=== PATIENT | female | born 1965 | race Caucasian/White ===

== ENCOUNTER → 2017-03-02 | Outpatient (CLI) | payer BC ==
[~2017-03-02] MED LIST: ASP81TEC PO; ASPI325T32 PO; ATEN25TA PO; ATOR80TA PO; CLOP75TA PO; ESCI20TA2 PO; HCT25T PO; LISI10TA2 PO; MULT-608 PO; NIA500ERT PO; OMG1KC PO; PNT40TEC PO; SIMV80TA3 PO
--- NOTE | 2017-03-03 10:23 | Diagnostic Imaging Report ---
EXAMINATION: Bilateral screening mammogram 2D views with tomosynthesis. The current study was also evaluated with a Computer Aided Detection (CAD) system. INDICATION: Screening. PERSONAL HISTORY: No current complaints stated on the questionnaire. COMPARISON: 12/14/2015. FINDINGS: The breasts are composed of heterogeneously dense parenchyma which may decrease mammographic sensitivity. There is a 7 mm asymmetry seen along the upper aspect of the right MLO view. The CC projection demonstrates no definite correlate. The tomographic evaluation demonstrates persistence of the asymmetry without definite underlying lesion. The left breast demonstrates no definite change. IMPRESSION: Focal compression views and ultrasound evaluation for right MLO view asymmetry would be recommended. ACR BI-RADS Category 0: Incomplete. (Needs additional imaging evaluation). Result letter will be mailed to the patient. Note: At least 10% of breast cancer is not imaged by mammography. Dictated by: Dictated on workstation # [id number]
== END ==
LOC: RAD 15:09
PROVIDERS: ATTEND Obstetrics & Gynecology
DX: Z12.31 Encounter for screening mammogram for malignant neoplasm of breast (principal)
CPT/HCPCS: 77067

== ENCOUNTER → 2017-03-18 | Outpatient (CLI) | payer BC ==
--- NOTE | 2017-03-18 10:50 | Diagnostic Imaging Report ---
EXAMINATION: Right breast ultrasound. INDICATION: Asymmetry along the right MLO view. FINDINGS: The four-quadrants and retroareolar region of the right breast were scanned with no underlying abnormality seen. IMPRESSION: Negative study. The additional mammographic views are suggestive of summation artifact of parenchyma. Annual screening mammograms are recommended. ACR BI-RADS Category 1: Negative. Dictated by: Dictated on workstation # [id number]
--- NOTE | 2017-03-18 11:11 | Diagnostic Imaging Report ---
EXAMINATION: Right breast diagnostic mammogram with tomography. The current study was also evaluated with a Computer Aided Detection (CAD) system. INDICATION: Abnormal mammogram. COMPARISON: 03/02/2017. FINDINGS: A focal compression view of the mid right MLO view asymmetry was performed with no definite underlying mass appreciated. The true lateral view demonstrates dense background parenchyma. IMPRESSION: The findings are in favor of summation artifact of parenchyma with no definite underlying lesion seen. An ultrasound evaluation is pending. ACR BI-RADS Category 0: Incomplete. (Needs additional imaging evaluation). Result letter will be mailed to the patient. Note: At least 10% of breast cancer is not imaged by mammography. Dictated by: Dictated on workstation # [id number]
== END ==
LOC: RAD 08:04
PROVIDERS: ATTEND Obstetrics & Gynecology
DX: R92.8 Other abnormal and inconclusive findings on diagnostic imaging of breast (principal)
CPT/HCPCS: 76641

== ENCOUNTER → 2017-04-15 | Outpatient (CLI) | payer BC ==
[~2017-04-15] MED LIST changes: +CATHETER FLUSH 10 ML SYR IV PRN
[2017-04-15 12:48] VITALS: BP 140/81
--- NOTE | 2017-04-16 08:48 | STRESS TEST ---
DATE OF SERVICE: 04/15/2017 EXERCISE MYOVIEW STRESS TEST: Baseline heart rate is 84, baseline blood pressure 140/80, baseline EKG is sinus rhythm with no ischemic changes. In summary, the patient was injected with 10.31 mCi of technetium-99 Myoview and the resting images were obtained. Then, the patient started exercising with a baseline heart rate, blood pressure and EKG mentioned above. The patient was able to exercise for a total of 7 minutes on standard Himanshu protocol. At minute 6 she was injected with 29.2 mCi of technetium-99 Myoview. With peak exercise level EKG was showing less than [address] depression in II, III, aVF, V4 and V5. During recovery, heart rate and blood pressure returned to baseline. EKG returned to baseline. The resting and stress images were reviewed and compared in the short axis, horizontal long axis, and vertical long axis views. Review of the images showed breast attenuation affecting the quality of the images. There is mild decreased uptake at the base of the anterior wall and anterior septum. No significant ischemia was noted. SSS is 53 SDS 1, TID value 0.94. On the gaited images, the left ventricle appeared to be small in size with normal contractility. Calculated ejection fraction 63%. CONCLUSION: 1. Good exercise tolerance a total of 7 minutes on standard Himanshu protocol, total of 8.5 METS achieving 92% of maximum expected heart rate. 2. Appropriate heart rate and blood pressure response to exercise returned to baseline during recovery. 3. Minimal and diagnostic EKG changes with exercise returned to baseline during recovery. 4. Extracardiac attenuation affecting the quality of the images. Overall, there is no significant ischemia or infarction on SPECT images. 5. Normal left ventricular size with normal contractility. Calculated ejection fraction 63%. Job ID: [id number] DocumentID: [id number] Dictated Date: 04/16/2017 08:06:41 Secretary Book Keeper Date: 04/16/2017 08:42:27 Dictated By: LUL OROZCO MD
== END ==
LOC: CARD 09:36
PROVIDERS: ATTEND Physician Assistant
DX: Q23.1 Congenital insufficiency of aortic valve (principal); I25.10 Atherosclerotic heart disease of native coronary artery without angina pectoris; I10 Essential (primary) hypertension; E78.2 Mixed hyperlipidemia
CPT/HCPCS: 78452; 93017; 93306

== ENCOUNTER → 2018-05-14 | Outpatient (CLI) | payer BC ==
[~2018-05-14] MED LIST changes: -CATHETER FLUSH 10 ML SYR IV PRN
--- NOTE | 2018-05-17 08:59 | Diagnostic Imaging Report ---
INDICATION: Routine screening. Comparison is made with prior mammogram from 03/02/2017 and 12/14/2015. 2-D and 3-D bilateral screening mammography was performed with CAD. The current study was also evaluated with a Computer Aided Detection (CAD) system. FINDINGS: Both breasts remain heterogeneously dense, limiting the sensitivity of mammography. Previously noted parenchymal asymmetry in the right breast is not appreciated on today's study. Right breast is unremarkable. There are some calcifications in the upper aspect of the left breast, medially which are similar to perhaps slightly increased when compared with prior exam. Additional views would be useful for further evaluation. Benign calcifications are present as well. The axillae are unremarkable. IMPRESSION: Left breast calcifications perhaps slightly increased when compared with prior mammograms. Further evaluation with additional views are recommended. ACR BI-RADS Category 0: Incomplete. (Needs additional imaging evaluation). Result letter will be mailed to the patient. Note: At least 10% of breast cancer is not imaged by mammography. Dictated by: Dictated on workstation # [id number]
== END ==
LOC: RAD 15:42
PROVIDERS: ATTEND Obstetrics & Gynecology
DX: Z12.31 Encounter for screening mammogram for malignant neoplasm of breast (principal)
CPT/HCPCS: 77067

== ENCOUNTER → 2018-05-21 | Outpatient (CLI) | payer BC ==
--- NOTE | 2018-05-21 18:09 | Diagnostic Imaging Report ---
INDICATION: Left breast calcifications. Patient returns for additional views. COMPARISON: Correlation is made with recent screening study from 05/14/2018. EXAMINATION: Unilateral left 2D and 3D diagnostic mammography was performed including a conventional 90 degree lateral view as well as magnification CC and ML views were obtained. FINDINGS: There is a cluster of microcalcifications in the upper inner left breast at posterior depth. The calcifications appear to be primarily rounded with no pleomorphism. These are tightly clustered however. No associated soft tissue mass is seen. IMPRESSION: Clustered indeterminate microcalcifications in the upper inner left breast posterior depth. Stereotactic biopsy is recommended. ACR BI-RADS Category 4: Suspicious abnormality. Result letter will be mailed to the patient. Note: At least 10% of breast cancer is not imaged by mammography. Dictated by: Dictated on workstation # [id number]
== END ==
LOC: RAD 14:16
PROVIDERS: ATTEND Obstetrics & Gynecology
DX: R92.0 Mammographic microcalcification found on diagnostic imaging of breast (principal)

== ENCOUNTER → 2018-05-28 | Outpatient (CLI) | payer BC ==
[~2018-05-28] VITALS: Ht 165.1 cm; Wt 70.3 kg
[~2018-05-28] MED LIST changes: +LIDOCAINE 1% INJ 20 ML 20 ML VIAL INJ ONE
--- NOTE | 2018-05-28 17:04 | Diagnostic Imaging Report ---
INDICATION: Left breast microcalcifications. Patient presents for stereotactic biopsy. PROCEDURE: Patient was brought to the stereotactic suite and placed in a chair in sitting upright position. The left breast was positioned craniocaudal. Stereotactic targeting of the microcalcifications in the upper inner left breast at posterior depth was performed. The left breast was then prepped and draped in the usual sterile fashion. Small amount of 1% lidocaine was utilized for local anesthesia. An 8-gauge needle was advanced through the superior medial aspect of the left breast and placed with its tip per stereotactic coordinates. A total of four core biopsies were obtained. Suction-aided device was utilized. Imaging of the specimens does demonstrate numerous microcalcifications within the specimen labeled # 1 and # 2. No significant calcifications are identified within sample # 3 or # 4. A marker clip was then deployed. Needle was removed and hemostasis was obtained using manual compression. 2D mammography was then performed demonstrating postbiopsy changes in the upper inner left breast. Previously noted calcifications appear to be predominantly removed. IMPRESSION: Successful stereotactic biopsy of the left breast microcalcifications, as described. Pathology results are currently pending. Dictated by: Dictated on workstation # [id number]
== END ==
LOC: RAD 10:18
PROVIDERS: ATTEND Obstetrics & Gynecology
DX: N60.92 Unspecified benign mammary dysplasia of left breast (principal); R92.0 Mammographic microcalcification found on diagnostic imaging of breast
CPT/HCPCS: 19081; 88305

== ENCOUNTER → 2018-06-14 | Outpatient (CLI) | payer BC ==
[~2018-06-14] MED LIST changes: -LIDOCAINE 1% INJ 20 ML 20 ML VIAL INJ ONE
--- NOTE | 2018-06-14 13:05 | Diagnostic Imaging Report ---
Indication: Status post recent stereotactic biopsy of a cluster microcalcifications in the upper and inner aspect of the left breast. Biopsy results consistent with benign breast tissue with mild intraductal hyperplasia. Studies performed to evaluate for residual calcifications. Correlation is made with prior mammogram from 05/28/2018, 05/21/2018, and 05/14/2018. Unilateral left 2-D and 3-D diagnostic mammography was performed including conventional CC, MLO and ML views as well as magnification CC and ML views. Biopsy changes in the upper inner left breast posterior depth is noted. There is a small circumscribed density surrounding a marker clip consistent with some residual hematoma. The magnification ML view does show some 2-3 punctate residual calcifications just posterior and slightly inferior to the clip. These are not well seen on the CC magnification view. Remainder of left breast does show some scattered benign calcifications. Impression: BI-RADS 2 Status post stereotactic biopsy in the upper inner left breast with residual hematoma present. There are 2-3 residual calcifications identified adjacent to the marker clip, as described. ACR BI-RADS Category 2: Benign findings. Result letter will be mailed to the patient. Note: At least 10% of breast cancer is not imaged by mammography. Dictated by: Dictated on workstation # [id number]
== END ==
LOC: RAD 12:05
PROVIDERS: ATTEND Surgery
DX: L76.32 Postprocedural hematoma of skin and subcutaneous tissue following other procedure (principal); N60.92 Unspecified benign mammary dysplasia of left breast; Z98.890 Other specified postprocedural states

== ENCOUNTER 2018-06-16 05:40 | Outpatient (CLI) | payer BC ==
[~2018-06-16] VITALS: Ht 165.1 cm; Wt 72.6 kg
[2018-06-16] MEDS ORDERED: ATOR20TA66 PO (14:30)
[2018-06-16] MEDS ORDERED: ESTR1TAB24 PO (14:30)
[2018-06-16] MEDS ORDERED: ASPI-999 PO (14:30)
[2018-06-16] MEDS ORDERED: FLUO20CA42 PO (14:30)
[2018-06-16] MEDS ORDERED: HYDR25TA4 PO (14:30)
[2018-06-16] MEDS ORDERED: ATEN25TA PO (14:30)
[2018-06-16] MEDS ORDERED: OMG1KC PO (14:30)
[2018-06-17] MEDS ORDERED: HYDR-34 PO (10:28)
== END 2018-06-16 14:35 | disposition home or self-care (01) ==
LOC: PREOP 05:40
PROVIDERS: ATTEND Surgery
DX: Z01.818 Encounter for other preprocedural examination (principal)

== ENCOUNTER 2018-06-17 09:55 | Day surgery (SDC) | payer BC ==
[~2018-06-17] VITALS: Ht 165.1 cm; Wt 72.1 kg
[~2018-06-17 09:55] MED LIST changes: +ASPI-999 PO; +ATOR20TA66 PO; +ESTR1TAB24 PO; +FLUO20CA42 PO; +HYDR25TA4 PO
[2018-06-17] MEDS ORDERED: LIDOCAINE 1% INJ 20 ML 20 ML VIAL INJ ONE (10:00)
[2018-06-17] MEDS ORDERED: ceFAZolin 2 GM IV Premixed 50 ML IV ONE (10:15)
--- NOTE | 2018-06-17 10:27 | Progress Note-Pre Operative ---
Pre-Operative Progress Note H&P Reviewed The H&P was reviewed, patient examined and no changes noted. Date Seen by Provider: Jun 17, 2018 Time Seen by Provider: 10:25 Date H&P Reviewed: Jun 17, 2018 Time H&P Reviewed: 10:25 Pre-Operative Diagnosis: left breast mass CAPRICE MENDOZA MD Jun 17, 2018 10:27
[2018-06-17] MEDS ORDERED: HYDR-34 PO (10:28)
[2018-06-17 10:30] VITALS: BP 138/90
[2018-06-17] MEDS ORDERED: ONDANSETRON 4 MG/2 ML (SDV) Z0FRAN IVP PRN (10:30)
[2018-06-17] MEDS ORDERED: CATHETER FLUSH 10 ML SYR IV PRN (10:30)
[2018-06-17] MEDS ORDERED: morphine INJ 10 MG/ML 1ML (SYR OR VIAL) IVP PRN (10:30)
[2018-06-17] MEDS ORDERED: oxyCODONE/APAP 5/325MG (PERCOCET 5) TABLET PO PRN (10:30)
[2018-06-17] MEDS ORDERED: ACETAMINOPHEN 325 MG TABLET PO PRN (10:30)
--- NOTE | 2018-06-17 10:30 | Discharge Inst-Surgical ---
D/C Lap Instructions-REJI New, Converted, or Re-Newed RX: RX on Chart Follow Up Appt in 2 weeks Activity as tolerated No driving for 24 hours No driving while on pain medications Incentive Spirometry use every 2 hours while awake Regular Diet Symptoms to Report: Fever over 101 degree F, Nausea/Vomiting Infection Signs and Symptoms to report: Increased redness, Foul odor of wound, Increased drainage Bathing instructions: May shower Operative Area Clean/Dry; Keep incision clean/dry If any problems/questions: Contact your physician or go to Emergency Room CAPRICE MENDOZA MD Jun 17, 2018 10:30
[2018-06-17] MEDS ORDERED: LACTATED RINGERS 1,000 ML IV PRN (12:01)
[2018-06-17] MEDS ORDERED: BUP/EPI 0.5% 1:200,000 (SENSORCAINE) 30 ML VIAL ONE (13:57)
[2018-06-17] MEDS ORDERED: proPOfol 200 MG/20 ML (DIPRIVAN) VIAL IV ONE (14:12)
[2018-06-17] MEDS ORDERED: ONDANSETRON 4 MG/2 ML (SDV) Z0FRAN ONE (14:12)
[2018-06-17] MEDS ORDERED: MIDAZOLAM 2 MG/2 ML (VERSED) VIAL ONE (14:12)
[2018-06-17] MEDS ORDERED: SEVOFLURANE (ULTANE) 15 ML INHAL SOLN ONE ×4 (14:12→15:47)
[2018-06-17] MEDS ORDERED: DEXAMETHASONE 10 MG/ML (DECADRON) 1 ML VIAL ONE (14:12)
[2018-06-17] MEDS ORDERED: LIDOCAINE PF 0.5% 50 ML (XYLOCAINE) VIAL ONE (14:12)
[2018-06-17] MEDS ORDERED: ceFAZolin 2 GM IV Premixed 50 ML ONE (14:25)
[2018-06-17] MEDS ORDERED: fentaNYL INJECTION 100 MCG/2 ML AMP ONE (14:34)
[2018-06-17] MEDS ORDERED: PHENYLEPHRINE 100 MCG/ML 10 ML (ANESTHESIA) SYR ONE (15:14)
[2018-06-17] MEDS ORDERED: MEPERIDINE (DEMEROL) INJ 50 MG/ML ONE (16:15)
[2018-06-17 17:20] VITALS: BP 122/77
[2018-06-17 17:50] VITALS: BP 137/78
[2018-06-17 18:20] VITALS: BP 135/84
[2018-06-17 18:55] VITALS: BP 135/84
--- NOTE | 2018-06-17 20:07 | Diagnostic Imaging Report ---
INDICATION: Status post left breast lumpectomy. EXAMINATION: Specimen radiograph was submitted. FINDINGS: Within the specimen there is the hook wire as well as the marker clip. There are several calcifications in the specimen as well. There are some calcifications noted at coordinate F10. There is a tiny calcification identified at coordinate C9. There may be some tiny calcifications also noted at approximately coordinate D10 and D10.5. IMPRESSION: Specimen radiograph, as described. Dictated by: Dictated on workstation # [id number]
--- NOTE | 2018-06-17 21:34 | OPERATIVE REPORT ---
DATE OF SERVICE: 06/17/2018 ATTENDING PRIMARY CARE PHYSICIAN: Jayda Brown MD PREOPERATIVE DIAGNOSIS: Cluster of microcalcifications, left breast. POSTOPERATIVE DIAGNOSIS: Cluster of microcalcifications, left breast. PROCEDURE: Needle localization left breast biopsy. SURGEON: Caprice Mendoza MD HUMAN PROJECTILE: Spencer Haskins APRN. ANESTHESIA: General laryngeal mask airway with local. ESTIMATED BLOOD LOSS: Minimal. FINDINGS: The breast tissue around the localized region appeared to be fibrocystic. No palpable masses. DISPOSITION: The patient tolerated the procedure well. INDICATIONS: The patient is a 53-year-old female, who was found to have a left breast lesion, which was defined as an area of microcalcification. This was her first abnormality detected on mammography and she has been getting mammogram since age 41. Two sterotactic biopsies were performed, one of which was benign and one showed intraductal hyperplasia without atypia. There was no DCIS or invasive cancer component identified. She began menstruation at around age 14 and menopause at age 52. She did take oral contraceptive pills for approximately 14 years. She has never had a breast biopsy before this one. She does not report any abnormal nipple discharge, asymmetry of breast implant. She also does not report any lymphadenopathy as well as no family history of breast cancer. Due to the findings of the microcalcifications and peace of mind, she did want to have the entire lesion removed by needle localization. DESCRIPTION OF PROCEDURE: The patient was brought to the operating room, laid supine on the table. After adequate IV pain and sedative medications and general laryngeal mask airway intubation, the chest was prepped and draped in standard surgical fashion. A 0.5% Marcaine with epinephrine was used to anesthetize the overlying skin in a crescent shape just inferior to the needle insertion site along the superior aspect of the left breast. Using the needle localization mammographic images, we proceeded with excision of the breast tissue around the hook wire using electrocautery, also while using Ben clamps coring out the entire region around the needle. Good hemostasis was observed. The specimen was sent for permanent pathology. The wound was then copiously irrigated and suctioned out. The breast tissue was then loosely approximated using interrupted 3-0 Vicryl sutures. Subcutaneous tissue was then reapproximated using 3-0 Vicryl interrupted sutures. Skin was closed using 4-0 Monocryl running subcuticular suture. Wound was then cleaned and covered with Dermabond. The patient tolerated the procedure well. We will await the final pathology results. She may resume all previous activities; however, refrain from heavy lifting and exertion for the next two weeks and to apply tighter garments especially around the area of the excision site of the breast to prevent seroma formation. Job ID: [id number] DocumentID: [id number] Dictated Date: 06/17/2018 16:03:09 Film Developer Date: 06/17/2018 21:33:50 Dictated By: CAPRICE MENDOZA MD
== END 2018-06-17 18:55 | disposition home or self-care (01) ==
LOC: SDC 09:55
PROVIDERS: ATTEND Surgery
DX: N60.32 Fibrosclerosis of left breast (principal); N60.92 Unspecified benign mammary dysplasia of left breast; N64.1 Fat necrosis of breast; I25.10 Atherosclerotic heart disease of native coronary artery without angina pectoris; I10 Essential (primary) hypertension; E78.00 Pure hypercholesterolemia, unspecified; K21.9 Gastro-esophageal reflux disease without esophagitis; I25.2 Old myocardial infarction; Z87.891 Personal history of nicotine dependence; Z79.82 Long term (current) use of aspirin; Z79.899 Other long term (current) drug therapy; Z95.5 Presence of coronary angioplasty implant and graft
CPT/HCPCS: 76098; 87081; 88305

== ENCOUNTER → 2018-12-08 | Outpatient (CLI) | payer BC ==
[~2018-12-08] VITALS: Ht 165.1 cm; Wt 68.5 kg
[~2018-12-08] MED LIST changes: +CATHETER FLUSH 10 ML SYR IV PRN; +DIPH25TA65 PO; +HYDR-34 PO
[2018-12-08 14:00] VITALS: BP 168/65
--- NOTE | 2018-12-09 00:24 | STRESS TEST ---
DATE OF SERVICE: 12/08/2018 EXERCISE MYOVIEW STRESS TEST REPORT REFERRING PHYSICIAN: Dr. Brown. Baseline heart rate is 62. Baseline blood pressure is 148/85. Baseline EKG is sinus rhythm with no ischemic changes. In summary, the patient was injected with 10.3 mCi of technetium-99 Myoview and the resting images were obtained. Then, the patient started exercising with a baseline heart rate, blood pressure and EKG mentioned above. She was able to exercise for 8 minutes 40 seconds on standard Himanshu protocol. With peak exercise level, EKG was showing [address] depression in II, III, aVF, V4, V5 and V6 subtle ST elevation in aVL. Blood pressure at peak exercise level was 168/85. During recovery, the patient continued to have horizontal ST depression in II, III, aVF that resolved late in recovery. The resting and stress images were reviewed and compared in the short axis, horizontal long axis, and vertical long axis views. Review of the images showed breast attenuation with reversible ischemia involving the mid to apical anterior wall and anterolateral wall. SSS is 7, SDS 6, TID value 1.01. On the gated images, the left ventricle appeared to be normal size with normal contractility. Calculated ejection fraction 54%. IN CONCLUSION: 1. Excellent exercise tolerance, a total of 8 minutes 40 seconds on standard Himanshu protocol, total of 10.3 METS achieving 85% of maximum expected heart rate. 2. EKG changes with exercise that is suspicious of ischemia. 3. Breast attenuation with reversible ischemia involving the mid to apical anterior wall and anterolateral wall. 4. Normal left ventricular size with normal contractility. Calculated ejection fraction 54%. Job ID: [id number] DocumentID: [id number] Dictated Date: 12/08/2018 19:52:46 Egg Packer Date: 12/09/2018 00:24:00 Dictated By: LUL OROZCO MD
== END ==
LOC: CARD 08:37
PROVIDERS: ATTEND Physician Assistant
DX: I34.0 Nonrheumatic mitral (valve) insufficiency (principal); I10 Essential (primary) hypertension; I25.10 Atherosclerotic heart disease of native coronary artery without angina pectoris; E78.2 Mixed hyperlipidemia; Q23.1 Congenital insufficiency of aortic valve
CPT/HCPCS: 78452; 93017; 93306

== ENCOUNTER 2018-12-10 06:47 | Day surgery (SDC) | payer BC ==
[2018-12-10] VITALS (10 sets, daily range): BP systolic 106–140; BP diastolic 70–79
[~2018-12-10] VITALS: Ht 165.1 cm; Wt 68.5 kg
[~2018-12-10 06:47] MED LIST changes: -CATHETER FLUSH 10 ML SYR IV PRN; -DIPH25TA65 PO
[2018-12-10] MEDS ORDERED: HEParin (CATH LAB) 2,000 ML IV ONE (06:50)
[2018-12-10] MEDS ORDERED: NS IV 1000 ML 1,000 ML ONE (06:50)
[2018-12-10] MEDS ORDERED: LIDOCAINE 1% INJ 20 ML 20 ML VIAL ONE (06:50)
[2018-12-10] MEDS ORDERED: NS IV 1000 ML 1,000 ML IV SCH ×2 (07:00→08:40)
[2018-12-10 07:18] LABS: HEMOGLOBIN 14.1 G/DL (11.5-16.0); MEAN PLATELET VOLUME 10.2 FL (7.4-10.4); RED CELL DISTRIBUTION WIDTH 13.1 % (10.0-14.5); WHITE BLOOD COUNT 7.8 10^3/uL (4.3-11.0)
[2018-12-10 07:26] LABS: BILIRUBIN,URINE NEGATIVE (NEGATIVE); CLARITY,URINE CLEAR; COLOR,URINE YELLOW; GLUCOSE, URINE (UA) NEGATIVE (NEGATIVE); KETONES,URINE NEGATIVE (NEGATIVE); LEUKOCYTE ESTERASE ,URINE 3+ (NEGATIVE); NITRITE,URINE NEGATIVE (NEGATIVE); PH,URINE 8 (5-9); PROTEIN,URINE 2+ (NEGATIVE); UROBILINOGEN,URINE 1 MG/DL (NORMAL)
[2018-12-10] MEDS ORDERED: DIPH25TA65 PO (07:26)
[2018-12-10 07:27] LABS: WBC,URINE 0-2 /HPF
[2018-12-10 07:28] LABS: BACTERIA,URINE NEGATIVE /HPF
[2018-12-10 07:29] LABS: INR 0.9 (0.8-1.4); PROTHROMBIN TIME PATIENT 12.7 SEC (12.2-14.7)
[2018-12-10 07:35] LABS: ALANINE AMINOTRANSFERASE 29 U/L (0-55); ALBUMIN 4.2 GM/DL (3.2-4.5); ALKALINE PHOSPHATASE 92 U/L (40-136); BILIRUBIN,TOTAL 0.4 MG/DL (0.1-1.0); BUN/CREATININE RATIO 14; CALCIUM 9.9 MG/DL (8.5-10.1); CARBON DIOXIDE 31 MMOL/L (21-32); CHLORIDE 104 MMOL/L (98-107); CHOLESTEROL 177 MG/DL (< 200); CREATININE SERUM 0.88 MG/DL (0.60-1.30); GFR ESTIMATED > 60; GLUCOSE 82 MG/DL (70-105); HDL CHOLESTEROL 67 MG/DL (40-60); POTASSIUM 3.6 MMOL/L (3.6-5.0); SODIUM 144 MMOL/L (135-145); TOTAL PROTEIN 6.6 GM/DL (6.4-8.2); TRIGLYCERIDES 71 MG/DL (<150); VLDL CHOLESTEROL 14 MG/DL (5-40)
--- NOTE | 2018-12-10 07:38 | Diagnostic Imaging Report ---
Patient History: abn stress,htn,cad,hlp. Technique: Single frontal view of the chest Comparison: 04/09/2011 FINDINGS: The lung volumes are normal. No focal consolidation is seen. No large pleural effusion or pneumothorax is seen. The cardiomediastinal silhouette is normal in size and contour. No acute osseous abnormality is seen. IMPRESSION: No acute pulmonary abnormality seen. Dictated by: Dictated on workstation # [id number]
[2018-12-10] MEDS ORDERED: MIDAZOLAM 5 MG/5 ML (VERSED) VIAL ONE (07:42)
[2018-12-10] MEDS ORDERED: fentaNYL INJECTION 100 MCG/2 ML AMP ONE (07:42)
--- NOTE | 2018-12-10 08:15 | Cardiac Procedure Note-CS/ASA ---
Pre-Procedure Note Pre-Op Procedure Note H&P Reviewed The H&P was reviewed, patient examined and no changes noted. Date H&P Reviewed: Dec 10, 2018 Time H&P Reviewed: 08:14 Conscious Sedation Pre-Proced Time 08:14 ASA Score 3 For ASA 3 and 4: Consider anesthesia and medical clearance. Also, for patients with a history of failed moderate sedation consider anesthesia. Airway Lungs Heart ASA score ASA 1: a normal healthy patient ASA 2: a patient with a mild systemic disease (mid diabetes, controlled hypertension, obesity ASA 3: a patient with a severe systemic disease that limits activity (angina, COPD, prior Myocardial infarction) ASA 4: a patient with an incapacitating disease that is a constant threat to life (CHF, renal failure) ASA 5: a moribund patient not expected to survive 24 hrs. (ruptured aneurysm) ASA 6: a declared brain- patient whose organs are being harvested. For emergent operations, add the letter E after the classification Mallampati Classification Grade 3 Sedation Plan Analgesia, Amnesia, Plan communicated to team members, Discussed options with patient/fam, Discussed risks with patient/fam The patient is an appropriate candidate to undergo the planned procedure, sedation, and anesthesia. The patient immediately re-assessed prior to indication. LUL OROZCO MD Dec 10, 2018 08:15
--- NOTE | 2018-12-10 08:43 | Discharge Inst-Post CATH ---
Discharge Inst-CATH/EP Problems Reviewed?: Yes Post Cardiac Cath/EP D/C Inst Follow Up/Plan Appointment with Dr Lorenzo's office in 2-4 weeks <b>CARDIAC CATH/EP PROCEDURE DISCHARGE INSTRUCTIONS</b> ACTIVITY * Go Home directly and rest. * Limit activity of the leg (or wrist if it was used) for 7 days including aerobics, swimming, jogging, bicycling, etc. * Restrict stair-climbing for 7 days if possible, if not, climb up with your non-cath leg, then bring together on the same step. * Avoid lifting, pushing, pulling or excessive movement of the affected extremity for 7 days. * Customary sexual activity may be resumed after 2 days-use caution not to use a position that strains or causes pain to the affected extremity. * No driving for 24 hours. * NO SMOKING. * Avoid straining for bowel movements for 7 days. * Gentle walking on level ground is allowed. * Returning to work will depend on the type of procedure and the results. Your doctor will discuss this with you. CALL YOUR DOCTOR FOR ANY OF THE FOLLOWING: *If bleeding from the puncture site occurs- Apply gentle pressure to site with clean cloth and call your doctor or EMS. * If a knot or lump forms under the skin, increases in size, or causes pain. * If bruising appears to be worsening or moving further down your leg instead of disappearing. * Temperature above 101 F. CARE OF YOUR GROIN INCISION; * Bruising or purple discoloration of the skin near the puncture site is common. * You may shower only, no bathtub bathing for 5 days. Be careful to avoid slipping as your leg may feel stiff. * If a closure device was used on your femoral artery, please see the attached guide regarding care of the device and your leg. * Leave dressing on FOR 24 hours. CARE OF YOUR WRIST INCISION; * Bruising or purple discoloration of the skin near the puncture site is common. * You may shower. * DO NOT submerge wrist. * Leave dressing on FOR 24 hours. LUL LORENZO MD Dec 10, 2018 08:43
[2018-12-10] MEDS ORDERED: PATIENT MAY USE OWN MEDS, ALL PO SCH (08:45)
--- NOTE | 2018-12-10 08:46 | Cardiac Cath Report ---
Cardiac Cath Report Physician (s)/Business Investor (s) Physician LUL OROZCO MD Pre-Procedure Diagnosis Pre-Procedure Diagnosis: CAD Post-Procedure Note Procedure Start Date: Dec 10, 2018 Name of Procedure: left heart catheterization Findings/Procedure Note PROCEDURE NOTE: 53 years old lady with history of coronary artery disease multiple interventions in the past, multiple stenting, had an abnormal stress test scheduled for cardiac catheterization. After explaining the procedure to the patient, all pros and cons were explained, all questions were answered. The patient signed the consent and then she was placed on the cardiac catheterization laboratory. Groin was prepped SL fashion local anesthesia was used. Sheath placed in the right femoral artery. Renetta right and left catheter were used to access the coronary system. Pigtail was used to access the left ventricular cavity. Left ventriculogram was not done, pressure was measured At the end of the procedure the sheath was removed. Closure device was used FINDINGS: Hemodynamics LV 136/26, end-diastolic pressure of 26 Aorta 140/77 mean of 103 ANATOMY: Left Main is free of obstructive disease Left Anterior Descending is small to moderate in size with mild disease nonobstructive disease Left Circumflex has a patent stent at the midportion, mild to moderate disease beyond the stent nonobstructive disease Right Coronory Artery is small to moderate in size with mild disease nonobstructive disease LV Gram was not done, pressure was measured CONCLUSION: 1. Patent stents with mild to moderate disease nonobstructive disease in the coronary system 2. Elevated left ventricular end-diastolic pressure DISCUSSION AND RECOMMENDATION: continue with medical therapy no intervention is needed Anesthesia Type: Conscious Sedation Estimated blood loss (mL): 10 ml Contrast Amount: 30 ml Total Radiation Dose: 117 mGy Post-Procedure Diagnosis Post-operative diagnosis: Chest pain Coronary artery disease Hypertension Hyperlipidemia LUL OROZCO MD Dec 10, 2018 08:46
--- OUTSIDE RECORDS SUMMARY | 2018-12-10 09:13 | XMS REPORT | Clinical Summary ---
Author Author [facility] Organization [facility] Address Unknown Phone Unavailable Care Team Providers Care Leasing Specialist Name Role Phone Tiffanie Hernandez MD Unavailable Unavailable Richard Sage MD Unavailable Source Comments Some departments are not documenting in the electronic medical record. If you d o not see the information that you expected, contact Release of Information in [facility] Well Information Management department at [phone] for further assistan ce in locating additional records.[facility] Allergies No Known Allergies Medications End Date Status Medication Sig Dispensed Refills Start Date Active pantoprazole DR Take 40 mg by 0 (PROTONIX) 40 mg tablet mouth daily. Active clopiDOGrel (PLAVIX) 75 Take 75 mg by 0 mg tablet mouth daily. Active escitalopram oxalate Take 20 mg by 0 (LEXAPRO) 20 mg tablet mouth daily. Active niacin CR(+) (NIASPAN) Take 1,500 mg 0 750 mg Tb24 by mouth at bedtime daily. Active atenolol (TENORMIN) 25 mg Take 25 mg by 0 tablet mouth daily. Active atorvastatin (LIPITOR) 40 Take 40 mg by 0 mg tablet mouth daily. Active hydrochlorothiazide Take 25 mg by 0 (HYDRODIURIL) 25 mg mouth daily. tablet Active lisinopril (PRINIVIL; Take 20 mg by 0 ZESTRIL) 20 mg tablet mouth daily. Active aspirin EC 81 mg tablet Take 81 mg by 0 mouth daily. Active DOCOSAHEXANOIC ACID/EPA Take by 0 (FISH OIL PO) mouth. Active MULTIVITAMIN PO Take by 0 mouth. Active DIPHENHYDRAMINE HCL Take by 0 (BENADRYL ALLERGY PO) mouth. Active psyllium (METAMUCIL) Take 1 Packet 60 Packet 2 packet by mouth 4 twice daily. Active senna/docusate Take 1-2 Tabs 60 Tab 2 (SENOKOT-S) 8.6/50 mg by mouth at 4 tablet bedtime as needed (for constipaton. Hold for Diarrhea.). Active hemorrhoidal prep Insert or 12 1 (ANUSOL) 0.25 % rectal Apply 1 Suppository 4 suppository Suppository to rectal area as directed at bedtime daily. Active bisacodyl (DULCOLAX Take 1 Tab by 30 Tab 2 (BISACODYL)) 5 mg tablet mouth twice 4 daily as needed for Constipation. Active Problems Problem Noted Date Constipation 02/01/2014 Anal fissure 12/21/2013 Rectal bleeding 12/21/2013 Hemorrhoids 12/21/2013 Overview: Internal and external Family History Medical History Relation Name Comments Cancer Father Cancer-Colon Father Hypertension Father Melanoma Father Heart Disease Maternal Grandmother Diabetes Mother Hyperlipidemia Mother Hypertension Mother Melanoma Sister Relation Name Status Comments Father Maternal Grandmother Mother Sister Social History Date Tobacco Use Types Packs/Day Years Used Former Smoker Comments: smoked for 10 years quit 2007 Drinks/Week oz/Week Comments Alcohol Use Not Asked Sex Assigned at Date Recorded Not on file Industry Job Start Date Occupation Not on file Not on file Not on file Travel End Travel History Travel Start No recent travel history available. Last Filed Vital Signs Reading Time Taken Comments Vital Sign 122/82 02/01/2014 12:58 PM CDT Blood Pressure 94 02/01/2014 12:58 PM CDT Pulse 36.5 C (97.7 F) 02/01/2014 12:58 PM CDT Temperature 16 02/01/2014 12:58 PM CDT Respiratory Rate - - Oxygen Saturation - - Inhaled Oxygen Concentration 88.9 kg (196 lb) 02/01/2014 12:58 PM CDT Weight 165.1 cm (5' 5") 02/01/2014 12:58 PM CDT Height 32.62 02/01/2014 12:58 PM CDT Body Mass Index Plan of Treatment Health Maintenance Due Date Last Done Comments PHYSICAL (COMPREHENSIVE) 1973 EXAM HIV SCREENING 1981 DTAP/TDAP VACCINES (1 - 1984 Tdap) CERVICAL CANCER SCREENING 1996 BREAST CANCER SCREENING 2006 COLORECTAL CANCER 2016 SCREENING SHINGLES RECOMBINANT 2016 VACCINE (1 of 2) INFLUENZA VACCINE 02/01/2019 Results Not on filefrom Last 3 Months
--- OUTSIDE RECORDS SUMMARY | 2018-12-10 09:14 | XMS REPORT | Encounter Summary ---
Author Author [facility] Organization [facility] Address Unknown Phone Unavailable Care Team Providers Care Pulpwood Contractor Name Role Phone PCP Unavailable Encounter Details Care Team Description Date Type Department Leticia Pino MD [address] [place] [id number] 08/26/2007 [facility] Visit Social History Date Tobacco Use Types Packs/Day Years Used Never Assessed Sex Assigned at Date Recorded Not on file Industry Job Start Date Occupation Not on file Not on file Not on file Travel End Travel History Travel Start No recent travel history available. documented as of this encounter Last Filed Vital Signs Reading Time Taken Comments Vital Sign 114/76 08/26/2007 12:03 PM CDT Blood Pressure 75 08/26/2007 12:03 PM CDT Pulse - - Temperature - - Respiratory Rate - - Oxygen Saturation - - Inhaled Oxygen Concentration 69.4 kg (153 lb) 08/26/2007 12:03 PM CDT overweight Weight 165.1 cm (5' 5") 08/26/2007 12:03 PM CDT Height 25.46 08/26/2007 12:03 PM CDT Body Mass Index documented in this encounter Progress Notes * Leticia Pino MD - 08/26/2007 12:00 PM CDT [facility] [address] [place] [id number] Phone: [phone] Fax: [phone] August 26, 2007 KURT ORTEGA DO [facility] [address] [place] [id number] RE: LAURASHAUN MILENA : 1965 Chart #: [id number] Dear Dr. ORTEGA: I had the pleasure of seeing WYADONAY ABBOTT in the office today. She is 42 years of age and presents with the following chief complaint: Coronary artery diseas e. HPI: She denies angina or the use of sublingual nitroglycerin. She denies dyspnea, o rthopnea, PND, lower extremity edema, palpitations, presyncope, syncope, claudic ation or stroke. She states that she is involved with exercise and attempts to be compliant with a heart-healthy diet. Unfortunately, she continues to smoke. In the interim of her last visit with us, she underwent hysterectomy without ca rdiovascular complications. Problem List: CAD Inferior wall [place] (old) CAD PCI She underwent acute angioplasty and stenting of the RCA. Sh e was noted to have 30-40% plaque in the proximal and mid to left circumflex smita nary artery. 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 LV function was normal with an LVEF of 50%. 08/17/2002 CAD MPI Stress Test No definite ischemia. Normal LV systolic functio n, LVEF 76%. Breast attenuation artifact. Suggest PET or attenuation correctio n SPECT for future perfusion imaging. 08/26/2006 CAD Echo 1) Good exercise tolerance, achieving 10 METS. 2) Normal r esting left ventricular systolic function with an estimated ejection fraction of 60%. 3) Resting wall motion abnormalities consistent with prior RCA territory infarct. No exercise induced ischemia. Mid inferolateral segment and inferior base are akinetic. The mid to lateral inferior segments are hypokinetic. 01/24/2005 Dyslipidemia 08/17/2002 Echo 1. Normal left ventricular systolic function, with an estimate d ejection fraction of 55%. 2. Inferior wall hypokinesis. 3. No valvular ab normalities. 08/17/2002 EF MPI Rest EF: 76 Past Surgical History: Tubal ligation Tubal Pregnancies 2x Tonsillectomy 1970 Vaginal Hysterectomy 2006 Current Medications: Fish Oil 1000mg Take one capsule by mouth daily Zocor 20mg Take one tablet by mouth daily Atenolol 50mg Take one tablet by mouth daily Niaspan 500mg Take one tablet by mouth daily Lisinopril 10mg Take one tablet by mouth daily Aspirin 325mg Take one tablet by mouth daily Lexapro 20mg Take one tablet by mouth daily Multivitamin Take one tablet by mouth daily Allergies: No Known Allergies Family History: Mother Premature CAD at age 54. Father Cause of was melanoma at age 58. Sister Diagnosed with DM, HTN and dyslipidemia. Social History: Marital Status: Children: 2 Occupation: Teacher Diet: Regular Exercise: Occasional. Walking 2-3x weekly 20min Smoking: Current smoker of .50 packs per day for 10.00 years. Alcohol: Does not drink Caffeine: Caffeine use: 64 oz of soda ROS: 12-point review of systems is negative with the following exceptions: Constitutional: Fatigue, Cough Pulmonary: Snore, Daytime drowsiness, Wake up unrefreshed Cardiovascular: Lightheadedness Neuro: Disequilibrium Hematology: Bleed or bruise easily Endocrine/Psych: Feeling depressed Physical Exam: Vital Signs The patient is 5ft 5in tall, and weighs 153lbs. The BMI is 25.50. B lood pressure taken in the left arm is 114/76 mmHg in the sitting position. The pulse is 75. The rhythm is regular. HEENT The patient's neck veins are flat. Thyromegaly is present. Pulm Lungs are clear to auscultation. Cardiac Regular rate and rhythm. Normal S1 and S2. No murmur, rub, or gallop pre sent. Abd The patient has no abdominal tenderness to palpation. There is no hepatomeg mildred. The abdominal aorta is of normal size. There is no abdominal aortic bruit dete cted by auscultation. Vasc Distal pulses 2+ throughout with no carotid bruits noted. EXT The extremities are warm to touch. There is no edema noted. Neuro/Psych The patient is alert and oriented to time, person and place. The pa tient's mood is normal. EKG: Rhythm: Sinus Rate: 75 Most Recent Lipids Available for Review: Date Collected Fasting Chol HDL LDL Trig Ratio Glucose 08/26/2007 No 143 45 72 124 3.18 111 Impression and Plan: In summary, Ms. Abbott is a 42-year-old female with a history of inferior wall myocardial infarction in 2000, which was treated with PTCA and stenting of the right coronary artery. Her stress echocardiogram last year was normal. She is asymptomatic from an anginal standpoint and euvolemic on examination. I again, had a nice conversation with her about the worrisome effects of nicotin e and her risk of future cardiovascular events. Smoking cessation was again adv ised. I have not made any changes in her cardiovascular medications. I did st ress that I would like to see her HDL higher, which would incorporate more exerc ise and again, smoking cessation. She was encouraged to call in the interim of follow-up with any concerns or questions. At the time of follow-up I have sugg ested a stress echocardiogram. Follow up: Leticia Pino M.D. 1 Year Thank you for allowing me to participate in DIEGO ABBOTT's care. If I can be of any further assistance, please do not hesitate to contact me. Sincerely, Leticia STEVENS/jose , 12:57 p.m. , 10:46 a.m. F: 09/01/2007 documented in this encounter Plan of Treatment Not on filedocumented as of this encounter Visit Diagnoses Not on filedocumented in this encounter
--- OUTSIDE RECORDS SUMMARY | 2018-12-10 09:14 | XMS REPORT | Encounter Summary ---
Author Author [facility] Organization [facility] Address Unknown Phone Unavailable Care Team Providers Care Manager Operational Name Role Phone Marvin Adames MD PCP Encounter Details Care Team Description Date Type Department Provider, MD Timothy [address] [place] [address] [id number] 10/17/2014 [facility] Social History Date Tobacco Use Types Packs/Day Years Used Never Assessed Sex Assigned at Date Recorded Not on file Industry Job Start Date Occupation Not on file Not on file Not on file Travel End Travel History Travel Start No recent travel history available. documented as of this encounter Plan of Treatment Not on filedocumented as of this encounter Visit Diagnoses Not on filedocumented in this encounter
--- OUTSIDE RECORDS SUMMARY | 2018-12-10 09:14 | XMS REPORT | Clinical Summary ---
Author Author [facility] Organization [facility] Address Unknown Phone Unavailable Care Team Providers Care Silvering Applicator Name Role Phone Marvin Adames MD PCP Allergies Not on File Medications End Date Status Medication Sig Dispensed Refills Start Date Active lisinopril Take one 90 3 200 (PRINIVIL,ZESTRIL) 10 MG tablet by 9 tablet mouth daily Active niacin (NIASPAN Take one 90 3 EXTENDED-RELEASE) 500 MG tablet by 9 CR tablet mouth daily Active atenolol (TENORMIN) 25 MG take 1 tablet 90 3 200 tablet (25MG) by 9 ORAL route every day Active simvastatin (ZOCOR) 20 MG Take one 90 3 200 tablet tablet by 9 mouth daily Active diphenhydrAMINE-acetamino take 2 tablet 0 200 phen (TYLENOL PM EXTRA by ORAL route 9 STRENGTH) 25-500 mg Tab every day at bedtime Active omega-3 fatty Take one 0 0 03/30/200 acids-vitamin E 1,000 mg capsule by 8 cap mouth daily Active multivitamin (THERAGRAN) Take one 0 0 09/22/200 per tablet tablet by 5 mouth daily Active escitalopram oxalate Take one 0 0 01/23/200 (LEXAPRO) 20 MG tablet tablet by 5 mouth daily Active aspirin 325 MG EC tablet Take one 0 0 09/22/200 tablet by 5 mouth daily Active Problems Problem Noted Date Hemangioma of skin 10/17/2014 Benign neoplasm of skin 10/17/2014 Overview: ICD-10 conversion Family History Medical History Relation Name Comments Other Mother Premature CAD at age 54. Other Sister Diagnosed with DM, HTN, Dyslipidemia Relation Name Status Comments Father Cause of was Melanoma CA at age 58. (Age 58) Mother Sister Social History Date Tobacco Use Types Packs/Day Years Used Never Smoker Sex Assigned at Date Recorded Not on file Industry Job Start Date Occupation Not on file Not on file Not on file Travel End Travel History Travel Start No recent travel history available. Last Filed Vital Signs Reading Time Taken Comments Vital Sign 109/76 10/17/2014 2:22 PM CDT Blood Pressure 74 10/17/2014 2:22 PM CDT Pulse - - Temperature - - Respiratory Rate - - Oxygen Saturation - - Inhaled Oxygen Concentration 68 kg (150 lb) 10/17/2014 2:22 PM CDT Weight 165.1 cm (5' 5") 10/17/2014 2:22 PM CDT Height 24.96 10/17/2014 2:22 PM CDT Body Mass Index Plan of Treatment Health Maintenance Due Date Last Done Comments Td # 1965 Zoster Vaccine# (1 of 2) 2016 Influenza Vaccine (#1) 2019 Results Not on filefrom Last 3 Months Insurance Type Payer Benefit Subscriber ID Effective Phone Address Plan / Dates Group [facility] xxxxxxxxxxxx 2014- CHOICE Present BIPIN LEUNG
--- OUTSIDE RECORDS SUMMARY | 2018-12-10 09:14 | XMS REPORT | Encounter Summary ---
Author Author [facility] Organization [facility] Address Unknown Phone Unavailable Care Team Providers Care Telephone Messenger Name Role Phone PCP Unavailable Encounter Details Care Team Description Date Type Department Milo Driscoll MD [address] [address] [phone] 12/17/2006 [facility] Visit Social History Date [...]
--- OUTSIDE RECORDS SUMMARY | 2018-12-10 09:14 | XMS REPORT | Encounter Summary ---
Author Author [facility] Organization [facility] Address Unknown Phone Unavailable Care Team Providers Care Gas Plant Worker Name Role Phone PCP Unavailable Encounter Details Care Team Description Date Type Department [facility] Provider, MD Timothy 08/26/2006 [facility] Result Social History Date Tobacco Use Types Packs/Day Years Used Never Assessed Sex Assigned at Date Recorded Not on file Industry Job Start Date Occupation Not on file Not on file Not on file Travel End Travel History Travel Start No recent travel history available. documented as of this encounter Plan of Treatment Not on filedocumented as of this encounter Procedures Comments Procedure Name Priority Date/Time Associated Diagnosis ECHO STRESS HISTORICAL Routine 08/26/2006 documented in this encounter Results * Echo Stress historical (08/26/2006) Specimen Narrative Performed At Procedure Category: ECHO [facility]EXT[facility] Procedure: Exercise Echocardiogram Procedure Summary: 1) Good exercise tolerance, achieving 10 METS. 2) Normal resting left ventricular systolic function with an estimated ejection fraction of 60%. 3) Resting wall motion abnormalities consistent with prior RCA territory infarct.No exercise induced ischemia. Mid inferolateral segment and inferior base are akinetic.The mid to lateral inferior segments are hypokinetic. Procedure Note Interface, Rad Conversion - 11/22/2014 8:54 AM CDT Procedure Category: ECHO Procedure: Exercise Echocardiogram Procedure Summary: 1) Good exercise tolerance, achieving 10 METS. 2) Normal resting left ventricular systolic function with an estimated ejection fraction of 60%. 3) Resting wall motion abnormalities consistent with prior RCA territory infarct. No exercise induced ischemia. Mid inferolateral segment and inferior base are akinetic. The mid to lateral inferior segments are hypokinetic. Performing Organization Address City/State/Zipcode Phone Number [facility]GEN documented in this encounter Visit Diagnoses Not on filedocumented in this encounter
--- OUTSIDE RECORDS SUMMARY | 2018-12-10 09:14 | XMS REPORT | Encounter Summary ---
Author Author [facility] Organization [facility] Address Unknown Phone Unavailable Care Team Providers Care Telecommunications Officer Name Role Phone PCP Unavailable Encounter Details Care Team Description Date Type Department [facility] Provider, MD Timothy 11/08/2008 [facility] Result Social History Date [...] Date/Time Associated Diagnosis ECHO STRESS HISTORICAL Routine 11/08/2008 documented in this encounter Results * Echo Stress historical (11/08/2008) Specimen Narrative Performed At Procedure Category: ECHO [facility] Procedure: Exercise Echocardiogram Procedure Summary: 1. Good exercise tolerance, achieving 10 METS. 2. Normal resting left ventricular systolic function with an estimated ejection fraction of 60%. 3. Akinetic inferolateral segments plus the basal septum and inferior base.No exercise induced ischemia. Procedure Note Interface, Rad Conversion - 11/22/2014 5:35 AM CDT Procedure Category: ECHO Procedure: Exercise Echocardiogram Procedure Summary: 1. Good exercise tolerance, achieving 10 METS. 2. Normal resting left ventricular systolic function with an estimated ejection fraction of 60%. 3. Akinetic inferolateral segments plus the basal septum and inferior base. No exercise induced ischemia. Performing Organization Address City/State/Zipcode Phone Number NEXTGEN documented in this encounter Visit Diagnoses Not on filedocumented in this encounter
--- OUTSIDE RECORDS SUMMARY | 2018-12-10 09:14 | XMS REPORT | Encounter Summary ---
Author Author [facility] Organization [facility] Address Unknown Phone Unavailable Care Team Providers Care Digitizer Operator Name Role Phone PCP Unavailable Encounter Details Care Team Description Date Type Department Leticia Pino MD [address] [place] [address] [phone] 08/26/2006 [facility] Visit Social History Date Tobacco Use Types Packs/Day Years Used Never Assessed Sex Assigned at Date Recorded Not on file Industry Job Start Date Occupation Not on file Not on file Not on file Travel End Travel History Travel Start No recent travel history available. documented as of this encounter Last Filed Vital Signs Reading Time Taken Comments Vital Sign 118/82 08/26/2006 2:29 PM CDT Blood Pressure 94 08/26/2006 2:29 PM CDT Pulse - - Temperature - - Respiratory Rate - - Oxygen Saturation - - Inhaled Oxygen Concentration 68.9 kg (152 lb) 08/26/2006 2:29 PM CDT Weight 165.1 cm (5' 5") 08/26/2006 2:29 PM CDT Height 25.29 08/26/2006 2:29 PM CDT Body Mass Index documented in this encounter Progress Notes * Leticia Pino MD - 08/26/2006 2:14 PM CDT [place] [facility] [address] [place] [address] [phone] August 26, 2006 KURT ORTEGA, DO [facility] [address] [place] [id number] RE: DIEGO ABBOTT : 1965 Chart #: [id number] Dear Dr. ORTEGA: I had the pleasure of seeing DIEGO ABBOTT in the office today for an annual ev aluation. She is 41 years of age and presents with the following chief complaint s: Follow-up on chronic disease. HPI: She denies angina or the need for nitroglycerin. She denies dyspnea, orthopnea, PND, lower extremity edema, palpitations, presyncope, syncope, claudication, or stroke. Her chief complaint is that of heavy menses and severe cramping. She states that she had a syncopal episode associated with severe pelvic pain. She states her [facility] physician had suggested Prometrium and inquires whether this may be safe from a cardiovascular standpoint. She also is bothered by increased acn e as well as facial hair. She denies orthopnea, PND, claudication, or stroke. She states there is clear room for improvement in efforts at healthy diet and ex ercise. Unfortunately, she continues to smoke. Problem List: CAD Inferior wall NE (old) CAD PCI She underwent acute angioplasty and stenting of the RCAl. She was noted to have 30-40% plaque in the proximal and mid to left circumflex coronary artery. 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 LV function was normal with an LVEF of 50%. 08/17/2002 CAD MPI Stress Test No definite ischemia. Normal LV systolic function , LVEF 76%. Breast attenuation artifact. Suggest PET or attenuation correction SPECT for future perfusion imaging. 08/26/2006 CAD Echo 1) Good exercise tolerance, achieving 10 METS. 2) Normal resting left ventricular systolic function with an estimated ejection fraction of 60%. 3) Resting wall motion abnormalities consistent with prior RCA territory infarct. No exercise induced ischemia. Mid inferolateral segment and inferior base are akinetic. The mid to lateral inferior segments are hypokinetic. 01/22/2005 Dyslipidemia 08/17/2002 Echo 1. Normal left ventricular systolic function, with an estima jorge l ejection fraction of 55%. 2. Inferior wall hypokinesis. 3. No valvular abnormalities. 08/17/2002 EF MPI Rest EF: 76 Tobacco abuse Current Current Medications: Lisinopril 10mg Take one tablet by mouth daily Aspirin 325mg Take one tablet by mouth daily Lexapro 20 Mg Take one tablet by mouth daily Bowler 3 Take one capsule by mouth daily Multivitamin Take one tablet by mouth daily Niaspan 500mg Take one tablet by mouth daily Atenolol 50mg Take one tablet by mouth daily Allergies: No Known Allergies Family History: Mother Premature CAD at age 54. Father Cause of was CA at age 58. Sister Diagnosed with Dyslipidemia, HTN. Social History: MS. 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 The patient gets occ asional exercise. The patient currently smokes and has smoked for 6 years. The patient does not drink alcohol. There is no history of drug abuse. A review of the patient's dietary patterns indicates that she adheres to a regular diet. ROS: 12-point review of systems negative with the following exceptions: Constitutional: Fatigue Pulmonary: Snore, Daytime drowsiness Hematology: Bleed or bruise easily Endocrine/Psych: Feeling depressed Physical Exam: Vital Signs The patient is 5ft 5in tall, and weighs 152lbs. The BMI is 25.30. B lood pressure taken in the left arm is 118/82 mmHg in the sitting position. The pulse is 94. The rhythm is regular. HEENT Thyromegaly is present. The patient's neck veins are flat. Pulm Lungs are clear to auscultation. Cardiac [...] throughout with no carotid bruits noted. EXT There is no edema noted. Neuro/Psych The patient is alert and oriented to time, person and place. The pa tient's mood is normal. EKG: Rhythm: Sinus Rate: 90 Impression: In summary Ms. Abbott is a 41-year-old female with a history of coronary artery disease. She did suffer an inferior wall myocardial infarction in 2000, which required acute PTCA and stenting to the right coronary artery. She did have mil d to moderate plaque in the circumflex artery that did not warrant intervention at that time. Since then she has had normal stress tests and did undergo a stre ss echocardiogram today, the results are currently pending. Recommendations: 1. I have encouraged strict compliance with risk factor modification. Again, I am quite concerned that she continues to smoke, as this will continue to raise her risk of plaque inflammat ion, destabilization, and myocardial infarction. I asked her to further discuss with you the options of Chantix therapy to assist her in smoking cessation. 2. From a hormonal standpoint, I would not want her to be on hormonal therapy in view of her history of coronary artery disease and especially in the setting of continued nicotine abu se. I do not know if uterine ablation would be an option; though certainly support consideration of hysterectomy. 3. Lastly, I suggested a trial of spironolactone 25 increasing to 50 mg daily in respect to the hormonal effects of facial hair and acne that is respectively bothersome to her. I did give her a lab slip to check her electrolytes, BUN, and creatinine in two to three weeks, as well as a TSH, as she did have thyromegaly on examination today. Follow up: Leticia Pino M.D. 1 Year Thank you for allowing me to participate in DIEGO ABBOTT's care. If I can be of any further assistance, please do not hesitate to contact me. Sincerely, Leticia Pino M.D. TLS/SABRINA/mikhail cc: Jamir Meier M.D. [address] [place] [phone] Diego Ring M.D. ---- F: 09/02/2006 documented in this encounter Plan of Treatment Not on filedocumented as of this encounter Visit Diagnoses Not on filedocumented in this encounter
--- OUTSIDE RECORDS SUMMARY | 2018-12-10 09:14 | XMS REPORT | Encounter Summary ---
Author Author [facility] Organization [facility] Address Unknown Phone Unavailable Care Team Providers Care Tourist Escort Name Role Phone PCP Unavailable Encounter Details Care Team Description [place] [address] [place] [address] [phone] 09/26/2008 [facility] Visit Social History Date [...]
--- OUTSIDE RECORDS SUMMARY | 2018-12-10 09:14 | XMS REPORT | Encounter Summary ---
Author Author [facility] Organization [facility] Address Unknown Phone Unavailable Care Team Providers Care Linen Checker Name Role Phone PCP Unavailable Encounter Details Care Team Description Date Type Department Linda Smith RN ANP [address] [place] [address] [phone] 10/06/2006 [facility] Visit Social History Date Tobacco Use Types Packs/Day Years Used Never Assessed Sex Assigned at Date Recorded Not on file Industry Job Start Date Occupation Not on file Not on file Not on file Travel End Travel History Travel Start No recent travel history available. documented as of this encounter Progress Notes * Linda Smith RN ANP - 10/06/2006 12:33 PM CDT [place] [facility] [address] [place] [address] [phone] October 06, [address] Meier: It has come to my attention that DIEGO ABBOTT is scheduled to undergo hyste rectomy in the near future. She can proceed with surgery without further cardia c evaluation. Beta-Blockers (Atenolol) should be continued throughout the jama-o perative and post-operative period. Please don't hesitate to contact me with further questions or concerns. Sincerely, Leticia Pino M.D. documented in this encounter Plan of Treatment Not on filedocumented as of this encounter Visit Diagnoses Not on filedocumented in this encounter
--- OUTSIDE RECORDS SUMMARY | 2018-12-10 09:14 | XMS REPORT | Encounter Summary ---
Author Author [facility] Organization [facility] Address Unknown Phone Unavailable Care Team Providers Care Delivery Tech Name Role Phone PCP Unavailable Encounter Details Care Team Description Date Type Department Leticia Pino MD [address] [place] [address] [phone] 11/22/2008 [facility] Visit Social History Date Tobacco Use Types Packs/Day Years Used Never Assessed Sex Assigned at Date Recorded Not on file Industry Job Start Date Occupation Not on file Not on file Not on file Travel End Travel History Travel Start No recent travel history available. documented as of this encounter Progress Notes * Leticia Pino MD - 11/22/2008 11:00 AM CDT [place] [facility] [address] [place] [address] 11/22/2008 KURT ORTEGA DO [address] [place] [address] [address] [place] [id number] Re: DIEGO ROYAL : 1965 Chart#: [id number] Dear Dr. ORTEGA: This is a followup note regarding DIEGO ROYAL. She has completed her cardiac testing and I am writing to share the results with you. She had the following tests: Stress echo: 1. Good exercise tolerance, achieving 10 METS. 2. Normal resting le ft ventricular systolic function with an estimated ejection fraction of 60%. 3. Akinetic inferolateral segments plus the basal septum and inferior base. No exe rcise induced ischemia. Based on the above, I am recommending the following: - continue medical treatment. Follow up is requested as planned. These test results along with my recommendations have been communicated to ISAAC ROYAL. I hope this information is useful to you. If you should have any qu estions or concerns, please do not hesitate to contact me. Sincerely, Leticia Pino M.D. documented in this encounter Plan of Treatment Not on filedocumented as of this encounter Visit Diagnoses Not on filedocumented in this encounter
--- OUTSIDE RECORDS SUMMARY | 2018-12-10 09:14 | XMS REPORT | Encounter Summary ---
Author Author [facility] Organization [facility] Address Unknown Phone Unavailable Care Team Providers Care Drive In Theater Attendant Name Role Phone PCP Unavailable Encounter Details Care Team Description Date Type Department Leticia Pino MD [address] [address] [phone] 06/03/2006 [facility] Visit Social History Date Tobacco [...]
--- OUTSIDE RECORDS SUMMARY | 2018-12-10 09:14 | XMS REPORT | Encounter Summary ---
Author Author [facility] Organization [facility] Address Unknown Phone Unavailable Care Team Providers Care Dredge Pipe Operator Name Role Phone Marvin Adames MD PCP Encounter Details Care Team Description Date Type Department Lakesha Duke Other plastic surgery for unacceptable cosmetic appearance (Primary Dx) 12/05/2014 Nurse Only [facility] [address] [facility] [address] [place] [address] Social History Date Tobacco Use Types Packs/Day Years Used Never Smoker Sex Assigned at Date Recorded Not on file Industry Job Start Date Occupation Not on file Not on file Not on file Travel End Travel History Travel Start No recent travel history available. documented as of this encounter Progress Notes * Lakesha Duke - 12/05/2014 2:25 PM CDT Broad Band Light for vascular lesions treatment: Treatment # 2 BBL for vascular lesions on 12/05/14 Settings: 1st pass on 21, 22, and 23:j/20ms/20 Celsius. Filter: 560 Finesse Adaptor: small round Cleansed skin, applied ultrasound gel, performed treatment, applied , SPF. Ms. Abbott tolerated well. Patient stated vessel is looked better. Performed under the supervision of Dr. Dick. documented in this encounter Plan of Treatment Not on filedocumented as of this encounter Visit Diagnoses Diagnosis Other plastic surgery for unacceptable cosmetic appearance - Primary documented in this encounter
--- OUTSIDE RECORDS SUMMARY | 2018-12-10 09:14 | XMS REPORT | Encounter Summary ---
Author Author [facility] Organization [facility] Address Unknown Phone Unavailable Care Team Providers Care Roof Slater Name Role Phone PCP Unavailable Encounter Details Care Team Description Date Type Department Becky Minaya MD [address] [facility] [address] [place] [address] 10/17/2014 Hist-Appointmen [facility] t Social History Date Tobacco Use Types Packs/Day [...] 10/17/2014 2:22 PM CDT Body Mass Index documented in this encounter Progress Notes * Becky Dick MD - 10/17/2014 2:30 PM CDT Chief Complaint spots History of Present Illness 49 YO WF with family history of MM in father and sister. She has numerous b rown spots on neck, chest and arms. No new or changing moles. She also has red papule on glabella. Has bled. No treatment. She does wear daily spf. NO per jose manuel hx skin cancer. Review of Systems Skin: as noted in HPI. Cardiovascular: hypertension and heart attack. Hematologic/Lymphatic: a tendency for easy bleeding and swollen glands. Constitutional: negative. Infection: negative. Past Medical History No significant past medical history Skin History Previous skin cancer: None: . Family history of skin cancer: Melanoma Father, sister . Previous sunburns: Moderate. Tanning bed use: Previously. Sunscreen use: Occasional. Worked as Precipitator Supervisor? No. Worked as Medical Record Librarian? No. Worked as Accordion Tuner? No. Current Meds 1. Aspirin 81 MG Oral Tablet Chewable; Therapy: (Recorded:17Oct2014) to Recorded 2. Atenolol 25 MG Oral Tablet; Therapy: (Recorded:17Oct2014) to Recorded 3. Caltrate 600+D 600-400 MG-UNIT Oral Tablet; Therapy: (Recorded:17Oct2014) to Recorded 4. Fish Oil 1000 MG Oral Capsule; Therapy: (Recorded:17Oct2014) to Recorded 5. Hydrochlorothiazide 25 MG Oral Tablet; Therapy: (Recorded:17Oct2014) to Recorded 6. Lexapro 20 MG Oral Tablet (Escitalopram Oxalate); Therapy: (Recorded:17Oct2014) to Recorded 7. Lipitor 20 MG Oral Tablet (Atorvastatin Calcium); Therapy: (Recorded:17Oct2014) to Recorded 8. Multivitamins TABS; Therapy: (Recorded:17Oct2014) to Recorded Allergies 1. No Known Drug Allergies Vitals Signs [Data Includes: Last 1 Day] Recorded: 17Oct2014 02:22PM Height: 5 ft 5 in Weight: 150 lb BMI Calculated: 24.96 BSA Calculated: 1.75 Blood Pressure: 109 / 76 Heart Rate: 74 Results/Data Results [Data Includes: Last 1 Week] No recent results Physical Exam Skin-Body Areas General Appearence: Well developed & well nourished, Alert & Oriented, No Acute Distress and Pleasant Mood Complexion: Fair Eyelids: Examined, Normal Lips: Examined, Normal Head: Examined Forehead: Examined, 3mm red macule glabella Neck: Examined Actinically damaged skin Chest/Axilla: Examined Evenly pigmented macule with uniform color and border Back: Examined Evenly pigmented macule with uniform color and border Abdomen: Examined Evenly pigmented macule with uniform color and border Left Arm: Examined Brown macules Right Arm: Examined Evenly pigmented macule with uniform color and border and B rown macules Left Leg: Examined Evenly pigmented macule with uniform color and border Right Leg: Examined Evenly pigmented macule with uniform color and border Groin/Buttock: Examined, Normal Hair/Nails: Examined, Normal Assessment Pigmented nevus (216.9) Hemangioma of skin (228.01) Plan Discussed complications, risks and morbidity. Discussed management options. Discussed monthly body exams/ABCDs of MM. Discussed sunscreen protection. RETURN VISIT: yearly skin check Discussed BBL for vascular papule on forehead and BBL for pigmentation on neck Signatures Electronically signed by : Becky Dick MD; Oct 17 2014 2:45PM LASER TECHNICIAN (Author) * Becky Dick MD - 10/17/2014 2:30 PM CDT Clinical Summary Patient Details for DIEGO ROYAL Preferred Name Female Sex [id number] MRN [id number] [facility], [address] Address [place] Language 1965 Born White Race Non- or Ethnicity [email or web address] Today's Appointment Becky Dick MD Provider 17 Oct 2014 02:30 PM Appointment Reason for Visit Issues Reviewed : Hemangioma of skin Pigmented nevus Current Health Issues Hemangioma of skin Pigmented nevus Smoking Status Never smoker Medications Medications: Medication Instructions Aspirin 81 MG Oral Tablet Chewable Atenolol 25 MG Oral Tablet Caltrate 600+D 600-400 MG-UNIT Oral Tablet Fish Oil 1000 MG Oral Capsule Hydrochlorothiazide 25 MG Oral Tablet Lexapro 20 MG Oral Tablet (Escitalopram Oxalate) Lipitor 20 MG Oral Tablet (Atorvastatin Calcium) Multivitamins TABS Allergies and Adverse Reactions No Known Drug Allergies Vital Signs Date/Time 10/17/2014 2:22:00 PM Blood Pressure 109 / 76 Heart Rate 74 bpm Height 5 ft 5 in Weight 150 lb BMI Calculated 24.96 kg/m2 BSA Calculated 1.75 m2 Results Results not documented. Interventions Discussed complications, risks and morbidity. Discussed management options. Discussed monthly body exams/ABCDs of MM. Discussed sunscreen protection. RETURN VISIT: yearly skin check Discussed BBL for vascular papule on fo rehead and BBL for pigmentation on neck Patient Care Team Care Roof Slater Role Specialty Office Number Becky Dick MD Specialist Dermatology Document Details [facility] Site Name Phone 17 Oct 2014 02:46 PM Created Date/Time [address] [facility] [address],[place], [place],[address] Site Address Fax documented in this encounter Plan of Treatment Not on filedocumented as of this encounter Visit Diagnoses Not on filedocumented in this encounter
--- OUTSIDE RECORDS SUMMARY | 2018-12-10 09:14 | XMS REPORT | Encounter Summary ---
Author Author [facility] Organization [facility] Address Unknown Phone Unavailable Care Team Providers Care Welder/Fitter Name Role Phone PCP Unavailable Encounter Details Care Team Description Date Type Department Leticia Pino MD [address] [place] [address] 11/08/2008 [facility] - [facility] [...] Signs Reading Time Taken Comments Vital Sign 108/82 11/08/2008 3:42 PM CDT Blood Pressure 94 11/08/2008 3:42 PM CDT Pulse - - Temperature - - Respiratory Rate - - Oxygen Saturation - - Inhaled Oxygen Concentration 79.8 kg (176 lb) 11/08/2008 3:42 PM CDT overweight Weight 165.1 cm (5' 5") 11/08/2008 3:42 PM CDT Height 29.29 11/08/2008 3:42 PM CDT Body Mass Index documented in this encounter Progress Notes * Leticia Pino MD - 11/08/2008 4:00 PM CDT [place] [facility] [address] [place] [address] Incomplete Letter November 08, 2008 KURT ORTEGA, [facility] [address] [place] [address] RE: DIEGO ROYAL : 1965 Chart #: [id number] Visit provider: Leticia Pino M.D. Visit location: [place] [address] ORTEGA: I had the pleasure of seeing DIEGO ROYAL in the office today. She is 43 years of age and presents with the following chief complaints: coronary artery disea se. HPI: Problem List: CAD inferior wall RI (old) inferior wall RI (old) CAD PCI She underwent acute angioplasty and stenting of the RCAl. S he was noted to have 30-40% plaque in the proximal and mid to left circumflex smita nary artery. 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 LV function was normal with an LVEF of 50%. 08/17/2002 CAD MPI Stress Test No definite ischemia.Normal LV systolic function, LVEF 76%.Breast attenuation artifact.Suggest PET or attenuation correction SPECT for future perfusion imaging. 11/08/2008 CAD Echo 1. Good exercise tolerance, achieving 10 METS. 2. Normal res ting left ventricular systolic function with an estimated ejection fraction of 6 0%. 3. Akinetic inferolateral segments plus the basal septum and inferior base. No exercise induced ischemia. 01/24/2005 Dyslipidemia Dyslipidemia 08/17/2002 Echo 1. Normal left ventricular systolic function, with an estimate d ejection fraction of 55%.2. Inferior wall hypokinesis. 3. No valvular abnorm alities. Past Surgical History: Tubal ligation Tubal Pregnancies 2x Tonsillectomy 1970 Vaginal Hysterectomy 2006 Final Medications: Tylenol Pm Extra Strength 500mg-25mg take 2 tablet by ORAL route every day at b edtime Lisinopril 10mg Take one tablet by mouth daily Zocor 20mg Take one tablet by mouth daily Atenolol 25mg take 1 tablet (25MG) by ORAL route every day Niaspan 500mg Take one tablet by mouth daily Fish Oil 1000mg Take one capsule by mouth daily Multivitamin Take one tablet by mouth daily Lexapro 20 Mg Take one tablet by mouth daily Aspirin 325mg Take one tablet by mouth daily Allergies: No Known Allergies Family History: Mother Premature CAD at age 54. Father Cause of was Melanoma CA at age 58. Sister Diagnosed with DM, HTN, Dyslipidemia Social History: Marital Status: Children: 2 Occupation: teacher Diet: Regular, Exercise: Sedentary Smoking: Former smoker Quit in 2007 Alcohol: Does not drink Caffeine: Caffeine use: 64 oz daily of soda ROS: 12-point review of systems is negative with the following exceptions: Constitutional: , Fatigue Pulmonary: , Snore, Daytime drowsiness, Wake up unrefreshed Cardiovascular: , Lightheadedness GI: Black or bloody stools Neuro: , Numbness/Weakness Hematology: Bleed or bruise easily Endocrine/Psych: , Feeling depressed Physical Exam: Vital Signs The patient is 5ft 5in tall, and weighs 176lbs. The BMI is 29.30. B lood pressure taken in the left arm is 108/82 mmHg in the sitting position. The pulse is 94. The rhythm is regular. HEENT Jugular venous pressure is estimated to be less than 8. HEENT Thyromegaly is present. Pulm Lungs are clear to auscultation. Cardiac Regular rate and rhythm. Normal S1 and S2. No murmur, rub, or gallop pre sent. Abd The patient has no abdominal tenderness to palpation. There is no hepatomeg mildred. The abdominal aorta is of normal size. There is no abdominal aortic bruit detected by auscultation. Vasc Distal pulses 2+ throughout with no carotid bruits noted. EXT The extremities are warm to touch. There is no edema noted. Neuro/Psych The patient is alert and oriented to time, person and place. The pa tient's mood is normal. EKG: Rhythm: Sinus Rate: 90 Most Recent Lipids Available for Review: Date Collected: 11/08/2008 Fasting: Non-Fasting Total Cholesterol: 154 HDL: 42 LDL: 89 Triglycerides: 117 Ratio: 3.67 Glucose: 100 Impression and Plan: Follow up: Leticia Pino M.D. 1 Year Thank you for allowing me to participate in DIEGO ROYAL's care. If I can be of any further assistance, please do not hesitate to contact me. Sincerely, Leticia Pino M.D. F: 11/14/2008 documented in this encounter Plan of Treatment Not on filedocumented as of this encounter Visit Diagnoses Not on filedocumented in this encounter
--- OUTSIDE RECORDS SUMMARY | 2018-12-10 09:14 | XMS REPORT | Encounter Summary ---
Author Author [facility] Organization [facility] Address Unknown Phone Unavailable Care Team Providers Care Embedded Software Programmer Name Role Phone PCP Unavailable Encounter Details Care Team Description Date Type Department Leticia Pino MD [address] [place] [id number] [phone] 08/31/2006 [facility] - Hist [facility] Visit Social History Date Tobacco Use Types Packs/Day Years Used Never Assessed Sex Assigned at Date Recorded Not on file Industry Job Start Date Occupation Not on file Not on file Not on file Travel End Travel History Travel Start No recent travel history available. documented as of this encounter Progress Notes * Leticia Pino MD - 08/31/2006 1:07 PM CDT [place] [facility] [address] [place] [id number] [phone] 08/31/2006 KURT ORTEGA DO [address] [place] [address] [address] [place] [id number] Re: DIEGO ROYAL : 1965 Chart#: [id number] Dear Dr. ORTEGA: This is a followup note regarding DIEGO ROYAL. She has completed her cardiac testing and I am writing to share the results with you. She had the following tests: Stress echo: 1) Good exercise tolerance, achieving 10 METS. 2) Normal resting l eft ventricular systolic function with an estimated ejection fraction of 60%. 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 No exercise induced ischemia. Mid inferolateral segment and inferior base are akinetic. The mid to lateral inferior segments are hypokinetic. Recommendation: Continue current medical regimen. These test results along with my recommendations [...]
--- OUTSIDE RECORDS SUMMARY | 2018-12-10 09:14 | XMS REPORT | Encounter Summary ---
Author Author [facility] Address Unknown Phone Unavailable Care Team Providers Care Skidder Driver Name Role Phone PCP Unavailable Encounter Details Care Team Description Date Type Department 10/17/2014 Hist-Appointmen [facility] t Social History Date Tobacco Use Types Packs/Day Years Used Never Assessed Sex Assigned at Date Recorded Not on file Industry Job Start Date Occupation Not on file Not on file Not on file Travel End Travel History Travel Start No recent travel history available. documented as of this encounter Progress Notes * ProviderTimothy MD - 10/17/2014 3:20 PM CDT Procedure Broad Band Light for vascular lesions treatment: Treatment # 1 BBL for vessels on angioma on forehead. Settings: 1st and 2nd pass on: 20j / 20ms/20 Celsius Filter: 560 Finesse Adaptor: large round 3rd pass on 21j /20ms /20 Celsius Filter: 560 Finesse Adaptor: Large round Cleansed skin, applied ultrasound gel, performed treatment, applied SPF . Ms. TU ROYAL . Performed under the supervision of Dr. Dick . Signatures Electronically signed by : JESSI Palmer; Oct 17 2014 3:17PM GIRLS SWIMMING COACH (Author) Electronically signed by : Becky Dick MD; Oct 17 2014 4:21PM GIRLS SWIMMING COACH (Supervisi ng Physician) documented in this encounter Plan of Treatment Not on filedocumented as of this encounter Visit Diagnoses Not on filedocumented in this encounter
--- OUTSIDE RECORDS SUMMARY | 2018-12-10 09:14 | XMS REPORT | Encounter Summary ---
Author Author [facility] Organization [facility] Address Unknown Phone Unavailable Care Team Providers Care Delivery Architect Name Role Phone PCP Unavailable Encounter Details Care Team Description Date Type Department Leticia Pino MD [address] [place] [address] [phone] 01/24/2005 [facility] - Hist [facility] Visit Social History [...] Signs Reading Time Taken Comments Vital Sign 130/84 01/24/2005 1:40 PM CDT Blood Pressure 72 01/24/2005 1:40 PM CDT Pulse - - Temperature - - Respiratory Rate - - Oxygen Saturation - - Inhaled Oxygen Concentration 69.4 kg (153 lb) 01/24/2005 1:40 PM CDT Weight 165.1 cm (5' 5") 01/24/2005 1:40 PM CDT Height 25.46 01/24/2005 1:40 PM CDT Body Mass Index documented in this encounter Progress Notes * Leticia Pino MD - 01/24/2005 1:16 PM CDT [place] [facility] [address] [place] [address] [phone] January 24, 2005 KURT ORTEGA, [facility] [address] [place] [id number] RE: DIEGO ROYAL : 1965 Chart #: [id number] Dear Dr. ORTEGA: I had the pleasure of seeing DIEGO ROYAL in the office today for an annual re -evaluation. She is 39 years of age and presents with the following chief compla ints: Coronary artery disease, dyslipidemia, and family history of CAD. HPI: She denies recurrent angina, dyspnea, orthopnea, PND, syncope, claudication, or stroke. She continues to teach middle school. She states there is clear room f or improvement in her efforts at diet and exercise. 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 Sh e was noted to have 30-40% plaque in the proximal and mid to left circumfle x coronary artery. There was evidence of intramuscular bridging in the lef t anterior descending coronary artery. LV function was normal with an LVEF of 50%. 08/17/2002 CAD MPI Stress Test No definite ischemia.Normal LV systolic function, LVEF 76%.Breast attenuation artifact.Suggest PET or attenuation correction SPECT for future perfusion imaging. 01/22/2005 Dyslipidemia 01/24/2005 Dyslipidemia 08/17/2002 Echo 1. Normal left ventricular systolic function, with an estimate d ejection fraction of 55%. 2. Inferior wall hypokinesis. 3. No valvular abnormalities. 08/17/2002 EF MPI Rest EF: 76, Stress EF: -1 Tobacco Abuse Current Current Medications: Toprol XL 50mg Take one tablet by mouth daily Altace 2.5mg Take one tablet by mouth daily Niaspan 500mg Take one tablet by mouth daily Aspirin 325mg Take one tablet by mouth daily Multivitamin Take one tablet by mouth daily [place] 3 Take one capsule by mouth daily Zocor 20mg Take one tablet by mouth daily Lexapro 20 Mg Take one tablet by mouth daily Allergies: No Known Allergies Family History: Mother Premature CAD at age 54. Father Cause of was CA at age 58. Sister Diagnosed with Dyslipidemia,HTN. Social History: Ms. ROYAL is . 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 The charlie ent gets occasional exercise. The patient currently smokes and has smoked for 6 years. Patient does not drink alcohol. There is no history of drug abuse. A review of the patient's dietary patterns indicates that they adhere to a regular diet. ROS: ROS is positive for: Constitutional: Fatigue Pulmonary: Snore Cardiovascular: very rare lightheadness Neuro: Disequilibrium Endocrine/Psych: Feeling depressed Physical Exam: Vital Signs The patient is 5ft 5in tall, and weighs 153lbs. The BMI is 25.50. B lood pressure taken in the left arm is 130/84 mmHg in the sitting position. The pulse is 72. The rhythm is regular. Const The patient is an overweight female. HEENT The patient's neck veins are flat. Pulm Lungs are clear to auscultation. Cardiac Regular rate and rhythm. Normal S1 and S2. No murmur, rub, or gallop pr esent. Abd There is no hepatomegaly. The abdominal aorta is of normal size. Vasc Distal pulses 2+ throughout with no carotid bruits noted. EXT There is no edema noted. Neuro/Psych The patient is alert and oriented to time, person and place. The pa tient's mood is normal. EKG: Rhythm: Sinus Rate: 70 Labs: Date Collected Fasting Chol HDL LDL Trig Ratio Glucose 01/24/2005 no 121.00 35.00 65.00 102.00 3.46 86 Impression and Plan: In summary, Ms. 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 A nuclear stress test in 2002 reveal ed excellent ventricular function and nonischemic images. An echocardiogram was completely normal as well. At this time, I do not feel any further cardiovascu lar testing is indicated. I have encouraged strict compliance with risk factor modification. The role of exercise on HDL was also discussed. At the time of f faith in one year, we will plan on a stress echocardiogram as well. Follow up: Leticia Pino M.D. 1 Year Thank you for allowing me to participate in DIEGO ROYAL's care. If I can be of any further assistance, please do not hesitate to contact me. Sincerely, Leticia Pino M.D. TLS:mane:la F: 02/03/2005 7:45pm documented in this encounter Plan of Treatment Not on filedocumented as of this encounter Visit Diagnoses Not on filedocumented in this encounter
--- OUTSIDE RECORDS SUMMARY | 2018-12-10 09:14 | XMS REPORT | Encounter Summary ---
Author Author [facility] Organization [facility] Address Unknown Phone Unavailable Care Team Providers Care Back Joiner Name Role Phone PCP Unavailable Encounter Details Care Team Description Date Type Department Zafar Reyes MD [address] [address] [phone] 03/24/2007 [facility] Visit Social History Date [...]
--- OUTSIDE RECORDS SUMMARY | 2018-12-10 09:14 | XMS REPORT | Encounter Summary ---
Author Author [facility] Organization [facility] Address Unknown Phone Unavailable Care Team Providers Care Fretted Instrument Inspector Name Role Phone PCP Unavailable Encounter Details Care Team Description Date Type Department Tomás Noriega MD [address] [address] [phone] 08/13/2006 [facility] Visit [...]
--- OUTSIDE RECORDS SUMMARY | 2018-12-10 09:14 | XMS REPORT | Encounter Summary ---
Author Author [facility] Organization [facility] Address Unknown Phone Unavailable Care Team Providers Care Property Consultant Name Role Phone PCP Unavailable Encounter Details Care Team Description Date [place] [address] [facility] [address] [place] [address] [phone] 11/25/2006 [facility] Visit Social History Date [...]
--- OUTSIDE RECORDS SUMMARY | 2018-12-10 09:14 | XMS REPORT | Encounter Summary ---
Author Author [facility] Organization [facility] Address Unknown Phone Unavailable Care Team Providers Care Polysom Tech Name Role Phone PCP Unavailable Encounter Details Care Team Description Date Type Department Eliot Ureña 10/16/2006 [facility] Visit Social History [...]
--- OUTSIDE RECORDS SUMMARY | 2018-12-10 09:15 | XMS REPORT | CCD ---
Author Author Toyin Turk MD, [facility] Address [address] [place] [address] Phone Care Team Providers Care Field Laboratory Operator Name Role Phone PP Unavailable CCM Unavailable Summary Purpose Interface Exchange Insurance Providers Payer name Policy type / Coverage type Covered constitution party ID Effective Begin Date Effective End Date Blue Cross Blue [facility] Blue Cross/Blue Shield [id number] Unknown Unknown Family history Sister Diagnosis Age At Onset Diabetes Unknown Hyperlipidemia Unknown Skin cancer Unknown Hypertension Unknown Mother Diagnosis Age At Onset Depression Unknown Hypertension Unknown Diabetes Unknown Arthritis Unknown Hyperlipidemia Unknown Father Diagnosis Age At Onset Skin cancer Unknown Colon cancer Unknown Diabetes Unknown Social History Social History Element Codes Description Effective Dates Marital status Unknown Rodrigo 09/23/2017 Number of children Unknown 2 adopted 11/23/[address]: 1497959 Quit less than 10 years ago 11/23/[address]: 612642825 Never drinks alcohol 11/23/2015 Allergies, Adverse Reactions, Alerts Substance Reaction Codes Entered Date Inactivated Date Status * NO KNOWN DRUG ALLERGIES Unknown 11/23/2015 No Inactive Date Active Past Medical History Illness Codes Condition Status Onset Date Resolved Date Encounter for other specified surgical aftercare ICD-9: V58.49 ICD-10: Z48.89 Active 06/24/2018 Unknown Other abnormal and inconclusive findings on diagnostic imaging of breast ICD-9: 793.89 ICD-10: R92.8 Active 06/15/2018 Unknown Encounter for screening mammogram for malignant neoplasm of breast ICD-9: V76.10 ICD-10: Z12.31 Active 05/24/2018 Unknown Encounter for screening for malignant neoplasm of colon ICD-9: V76.51 ICD-10: Z12.11 Active 05/21/2018 Unknown Generalized anxiety disorder ICD-9: 300.00 ICD-10: F41.1 Active 08/11/2016 Unknown Major depressive disorder, single episode, moderate ICD-9: 296.22 ICD-10: F32.1 Active 08/11/2016 Unknown Acute laryngopharyngitis ICD-9: 465.0 ICD-10: J06.0 Active 04/07/2017 Unknown Other allergic rhinitis ICD-9: 477.8 ICD-10: J30.89 Active 04/07/2017 Unknown Essential (primary) hypertension ICD-9: 401.9 ICD-10: I10 Active 11/22/2015 Unknown Problems Condition Codes Effective Dates Condition Status Encounter for other specified surgical aftercare ICD-9: V58.49 ICD-10: Z48.89 06/24/2018 Active Other abnormal and inconclusive findings on diagnostic imaging of breast ICD-9: 793.89 ICD-10: R92.8 06/15/2018 Active Encounter for screening mammogram for malignant neoplasm of breast ICD-9: V76.10 ICD-10: Z12.31 05/24/2018 Active Encounter for screening for malignant neoplasm of colon ICD-9: V76.51 ICD-10: Z12.11 05/21/2018 Active Generalized anxiety disorder ICD-9: 300.00 ICD-10: F41.1 08/11/2016 Active Major depressive disorder, single episode, moderate ICD-9: 296.22 ICD-10: F32.1 08/11/2016 Active Acute laryngopharyngitis ICD-9: 465.0 ICD-10: J06.0 04/07/2017 Active Other allergic rhinitis ICD-9: 477.8 ICD-10: J30.89 04/07/2017 Active Essential (primary) hypertension ICD-9: 401.9 ICD-10: I10 11/22/2015 Active Medications Medication Codes Instructions Start Date Stop Date Status Fill Instructions Prozac 20 mg capsule RxNorm: 074680 1 CAPSULE(S) PO DAILY 02/19/2018 11/15/2018 Active Prozac 20 mg capsule RxNorm: 694730 1 CAPSULE(S) PO DAILY 05/27/2017 02/18/2018 Inactive Zithromax Z-Raymond 250 mg tablet RxNorm: 769864 Tablet(s) PO UD 04/07/2017 05/26/2017 Inactive prednisone 20 mg tablet RxNorm: 326244 2 Tablet(s) PO daily 04/07/2017 04/11/2017 Inactive Prozac 20 mg capsule RxNorm: 272907 1 CAPSULE(S) PO DAILY 03/02/2017 05/26/2017 Inactive Prozac 20 mg capsule RxNorm: 347619 1 CAPSULE(S) PO DAILY 12/03/2016 03/01/2017 Inactive Transderm-Scop 1.5 mg transdermal patch (1 mg over 3 days) RxNorm: 869362 1 Patch TD q 3 days 09/24/2016 No Stop Date Active scopolamine 1.5 mg transdermal patch (1 mg over 3 days) RxNorm: 617685 1 TD q 3 days 09/23/2016 09/22/2016 Inactive scopolamine 1.5 mg transdermal patch (1 mg over 3 days) RxNorm: 844693 1 TD q 3 days as needed 09/23/2016 09/23/2016 Inactive Prozac 20 mg capsule RxNorm: 434922 1 Capsule(s) PO daily 09/08/2016 12/02/2016 Inactive Prozac 20 mg capsule RxNorm: 259139 1 Capsule(s) PO daily 08/11/2016 09/07/2016 Inactive Wellbutrin SR 150 mg tablet,sustained-release RxNorm: 789456 TAKE 1 TABLET BY MOUTH TWICE DAILY(DISCONTINUE 75MG) 07/24/2016 08/08/2016 Inactive Wellbutrin SR 150 mg tablet,sustained-release RxNorm: 148995 TAKE 1 TABLET BY MOUTH TWICE DAILY(DISCONTINUE 75MG) 06/25/2016 07/24/2016 Inactive Wellbutrin SR 150 mg tablet,sustained-release RxNorm: 337473 TAKE 1 TABLET BY MOUTH TWICE DAILY(DISCONTINUE 75MG) 05/22/2016 06/20/2016 Inactive Wellbutrin SR 150 mg tablet,sustained-release RxNorm: 084574 TAKE 1 TABLET BY MOUTH TWICE DAILY(DISCONTINUE 75MG) 04/24/2016 05/23/2016 Inactive Wellbutrin SR 150 mg tablet,sustained-release RxNorm: 789003 1 Tablet(s) PO BID 12/31/2015 04/23/2016 Inactive dc wellbutrin 75mg bid Wellbutrin SR 150 mg tablet,sustained-release RxNorm: 774151 1 Tablet(s) PO BID 12/31/2015 12/30/2015 Inactive dc wellbutrin 75mg bid Wellbutrin 75 mg tablet RxNorm: 965345 1 Tablet(s) PO BID 12/24/2015 12/30/2015 Inactive Wellbutrin 75 mg tablet RxNorm: 734788 1 Tablet(s) PO BID 11/27/2015 11/26/2015 Inactive Wellbutrin 75 mg tablet RxNorm: 510033 1 Tablet(s) PO BID 11/27/2015 12/23/2015 Inactive hydrochlorothiazide 25 mg tablet RxNorm: 187516 1 Tablet(s) PO daily No Start Date Active aspirin 81 mg tablet RxNorm: 778971 1 Tablet(s) PO daily No Start Date Active Multivitamin & Mineral Formula tablet RxNorm: 1 Tablet(s) PO daily No Start Date Active atenolol 25 mg tablet RxNorm: 335437 1 Tablet(s) PO daily No Start Date Active Lipitor 40 mg tablet RxNorm: 083467 1 Tablet(s) PO daily No Start Date Active Transderm-Scop 1.5 mg transdermal patch (1 mg over 3 days) RxNorm: 460907 1 Patch TD q 3 days No Start Date 09/23/2016 Inactive Lexapro 20 mg tablet RxNorm: 465741 1 Tablet(s) PO daily No Start Date 11/26/2015 Inactive Medication Administered No Medication Administered data Immunizations No Immunization data Assessments Condition Codes Effective Dates Encounter for other specified surgical aftercare ICD-10: Z48.89 ICD-9: V58.49 06/24/2018 Other abnormal and inconclusive findings on diagnostic imaging of breast ICD-10: R92.8 ICD-9: 793.89 06/15/2018 Encounter for screening mammogram for malignant neoplasm of breast ICD-10: Z12.31 ICD-9: V76.10 05/24/2018 Encounter for screening for malignant neoplasm of colon ICD-10: Z12.11 ICD-9: V76.51 05/21/2018 Generalized anxiety disorder ICD-10: F41.1 ICD-9: 300.00 09/23/2017 Major depressive disorder, single episode, moderate ICD-10: F32.1 ICD-9: 296.22 09/23/2017 Other allergic rhinitis ICD-10: J30.89 ICD-9: 477.8 04/07/2017 Acute laryngopharyngitis ICD-10: J06.0 ICD-9: 465.0 04/07/2017 Essential (primary) hypertension ICD-10: I10 ICD-9: 401.9 11/23/2015 Reason For Visit Reason For Visit Effective Dates Notes Post-op wound 06/24/2018 anxiety 09/23/2017 chest congestion 04/07/2017 medication follow up 09/08/2016 medication follow up 08/11/2016 hypertension 11/23/2015 Results No Results data Review of Systems System Result Effective Dates Constitutional No recent illness 06/24/2018 Constitutional No chills 06/24/2018 Constitutional No diaphoresis 06/24/2018 Constitutional No fever 06/24/2018 Eyes No eye erythema 06/24/2018 Ears/Nose/Throat/Neck No nasal discharge 06/24/2018 Cardiovascular No chest pain/pressure 06/24/2018 Cardiovascular No dyspnea 06/24/2018 Respiratory No cough 06/24/2018 Respiratory No chest congestion 06/24/2018 Gastrointestinal No abdominal pain 06/24/2018 Dermatologic sores 06/24/2018 Neurologic No alteration of consciousness 06/24/2018 Neurologic No mental status change 06/24/2018 Constitutional No recent illness 09/23/2017 Constitutional No chills 09/23/2017 Constitutional No diaphoresis 09/23/2017 Constitutional No fever 09/23/2017 Eyes No eye erythema 09/23/2017 Ears/Nose/Throat/Neck No nasal discharge 09/23/2017 Cardiovascular No chest pain/pressure 09/23/2017 Respiratory No cough 09/23/2017 Gastrointestinal No abdominal pain 09/23/2017 Dermatologic No rash 09/23/2017 Neurologic No alteration of consciousness 09/23/2017 Neurologic No mental status change 09/23/2017 Psychiatric anxiety 09/23/2017 Psychiatric depression 09/23/2017 Psychiatric No suicidality 09/23/2017 Constitutional recent illness 04/07/2017 Constitutional No chills 04/07/2017 Constitutional No diaphoresis 04/07/2017 Constitutional No fever 04/07/2017 Eyes No eye erythema 04/07/2017 Ears/Nose/Throat/Neck nasal allergies 04/07/2017 Ears/Nose/Throat/Neck nasal discharge 04/07/2017 Ears/Nose/Throat/Neck postnasal drip 04/07/2017 Ears/Nose/Throat/Neck No sinus congestion 04/07/2017 Ears/Nose/Throat/Neck sore throat 04/07/2017 Cardiovascular No chest pain/pressure 04/07/2017 Cardiovascular No dyspnea 04/07/2017 Respiratory No chest congestion 04/07/2017 Respiratory cough 04/07/2017 Respiratory No dyspnea 04/07/2017 Gastrointestinal No constipation 04/07/2017 Gastrointestinal No diarrhea 04/07/2017 Gastrointestinal No nausea 04/07/2017 Gastrointestinal No vomiting 04/07/2017 Dermatologic No rash 04/07/2017 Neurologic No alteration of consciousness 04/07/2017 Neurologic No mental status change 04/07/2017 Constitutional No recent illness 09/08/2016 Constitutional No chills 09/08/2016 Constitutional No diaphoresis 09/08/2016 Constitutional No fever 09/08/2016 Eyes No eye erythema 09/08/2016 Ears/Nose/Throat/Neck No nasal allergies 09/08/2016 Ears/Nose/Throat/Neck No nasal discharge 09/08/2016 Cardiovascular No chest pain/pressure 09/08/2016 Respiratory No cough 09/08/2016 Respiratory No dyspnea 09/08/2016 Dermatologic No rash 09/08/2016 Neurologic No alteration of consciousness 09/08/2016 Neurologic No mental status change 09/08/2016 Constitutional No recent illness 08/11/2016 Constitutional No chills 08/11/2016 Constitutional No fever 08/11/2016 Eyes No eye erythema 08/11/2016 Ears/Nose/Throat/Neck No nasal allergies 08/11/2016 Ears/Nose/Throat/Neck No nasal discharge 08/11/2016 Cardiovascular No chest pain/pressure 08/11/2016 Respiratory No chest congestion 08/11/2016 Respiratory No dyspnea 08/11/2016 Musculoskeletal No joint complaint 08/11/2016 Dermatologic No rash 08/11/2016 Neurologic No alteration of consciousness 08/11/2016 Neurologic No mental status change 08/11/2016 Psychiatric anxiety 08/11/2016 Psychiatric depression 08/11/2016 Constitutional No recent illness 11/23/2015 Constitutional No malaise 11/23/2015 Constitutional No fever 11/23/2015 Constitutional No fatigue 11/23/2015 Constitutional No diaphoresis 11/23/2015 Constitutional No chills 11/23/2015 Eyes No eye erythema 11/23/2015 Ears/Nose/Throat/Neck No nasal allergies 11/23/2015 Ears/Nose/Throat/Neck No nasal discharge 11/23/2015 Cardiovascular No chest pain/pressure 11/23/2015 Cardiovascular No dyspnea 11/23/2015 Respiratory No chest congestion 11/23/2015 Respiratory No cough 11/23/2015 Gastrointestinal No abdominal pain 11/23/2015 Gastrointestinal No constipation 11/23/2015 Gastrointestinal No diarrhea 11/23/2015 Gastrointestinal No vomiting 11/23/2015 Gastrointestinal No nausea 11/23/2015 Genitourinary/Nephrology No flank pain 11/23/2015 Musculoskeletal No joint complaint 11/23/2015 Dermatologic No rash 11/23/2015 Neurologic No alteration of consciousness 11/23/2015 Neurologic No mental status change 11/23/2015 Physical Exam Exam Name System Name Item Name Status Result Effective Dates Notes Full Exam - General 1994 Constitutional general appearance Overall: well developed 06/24/2018 None Full Exam - General 1994 Constitutional general appearance Overall: in no acute distress 06/24/2018 None Full Exam - General 1994 Constitutional general appearance Overall: well nourished 06/24/2018 None Full Exam - General 1994 Eyes conjunctiva/eyelids Overall: eyelids normal 06/24/2018 None Full Exam - General 1994 Eyes conjunctiva/eyelids Overall: cornea clear 06/24/2018 None Full Exam - General 1994 Eyes conjunctiva/eyelids Overall: conjunctiva clear 06/24/2018 None Full Exam - General 1994 Ears/Nose/Throat oral cavity/pharynx/larynx Overall: oral mucosa clear 06/24/2018 None Full Exam - General 1994 Ears/Nose/Throat lips/teeth/gingiva Overall: benign lips 06/24/2018 None Full Exam - General 1994 Respiratory respiratory effort/rhythm Overall: normal rate 06/24/2018 None Full Exam - General 1994 Respiratory respiratory effort/rhythm Overall: no retractions 06/24/2018 None Full Exam - General 1994 Respiratory auscultation Overall: breath sounds clear bilaterally 06/24/2018 None Full Exam - General 1994 Cardiovascular auscultation of heart Overall: regular rate 06/24/2018 None Full Exam - General 1994 Cardiovascular auscultation of heart Overall: normal heart sounds 06/24/2018 None Full Exam - General 1994 Musculoskeletal head and neck Overall: head atraumatic 06/24/2018 None Full Exam - General 1994 Musculoskeletal gait and station Overall: normal station 06/24/2018 None Full Exam - General 1994 Musculoskeletal gait and station Overall: normal gait 06/24/2018 None Full Exam - General 1994 Integument inspection of skin Location: chest 06/24/2018 left upper breast Full Exam - General 1994 Integument inspection of skin Rash/Lesions: surgical site 06/24/2018 edges well approximated, with moderate ecchymosis to the area. Full Exam - General 1994 Neurologic cranial nerves Overall: crainial nerves 2 - 12 grossly intact 06/24/2018 None Full Exam - General 1994 Psychiatric orientation/consciousness Overall: oriented to person, place and time 06/24/2018 None Full Exam - General 1994 Psychiatric mood and affect Overall: normal mood and affect 06/24/2018 None Full Exam - General 1994 Constitutional general appearance Overall: well developed 09/23/2017 None Full Exam - General 1994 Constitutional general appearance Overall: in no acute distress 09/23/2017 None Full Exam - General 1994 Constitutional general appearance Overall: well nourished 09/23/2017 None Full Exam - General 1994 Eyes conjunctiva/eyelids Overall: conjunctiva clear 09/23/2017 None Full Exam - General 1994 Eyes conjunctiva/eyelids Overall: cornea clear 09/23/2017 None Full Exam - General 1994 Eyes conjunctiva/eyelids Overall: eyelids normal 09/23/2017 None Full Exam - General 1994 Ears/Nose/Throat lips/teeth/gingiva Overall: benign lips 09/23/2017 None Full Exam - General 1994 Respiratory respiratory effort/rhythm Overall: no retractions 09/23/2017 None Full Exam - General 1994 Respiratory respiratory effort/rhythm Overall: normal rate 09/23/2017 None Full Exam - General 1994 Musculoskeletal head and neck Overall: head atraumatic 09/23/2017 None Full Exam - General 1994 Musculoskeletal gait and station Overall: normal station 09/23/2017 None Full Exam - General 1994 Musculoskeletal gait and station Overall: normal gait 09/23/2017 None Full Exam - General 1994 Neurologic cranial nerves Overall: crainial nerves 2 - 12 grossly intact 09/23/2017 None Full Exam - General 1994 Psychiatric orientation/consciousness Overall: oriented to person, place and time 09/23/2017 None Full Exam - General 1994 Psychiatric mood and affect Overall: normal mood and affect 09/23/2017 None Full Exam - General 1994 Psychiatric appearance Overall: well-groomed, good eye contact 09/23/2017 None Full Exam - ENT Constitutional general appearance Overall: well nourished 04/07/2017 None Full Exam - ENT Constitutional general appearance Overall: well developed 04/07/2017 None Full Exam - ENT Constitutional general appearance Overall: in no acute distress 04/07/2017 None Full Exam - ENT Ears/Nose/Throat otoscopic exam Overall: external auditory canals normal 04/07/2017 None Full Exam - ENT Ears/Nose/Throat otoscopic exam Left tympanic membrane: air-fluid level 04/07/2017 None Full Exam - ENT Ears/Nose/Throat otoscopic exam Right tympanic membrane: air-fluid level 04/07/2017 None Full Exam - ENT Ears/Nose/Throat lips/teeth/gingiva Overall: benign lips 04/07/2017 None Full Exam - ENT Ears/Nose/Throat oropharynx Overall: oral mucosa clear 04/07/2017 None Full Exam - ENT Ears/Nose/Throat oropharynx Posterior Pharynx: clear post nasal drainage 04/07/2017 None Full Exam - ENT Ears/Nose/Throat oropharynx Posterior Pharynx: erythema 04/07/2017 None Full Exam - ENT Respiratory inspection Overall: no retractions 04/07/2017 None Full Exam - ENT Respiratory inspection Overall: normal rate 04/07/2017 None Full Exam - ENT Respiratory auscultation Overall: breath sounds clear bilaterally 04/07/2017 None Full Exam - ENT Cardiovascular auscultation of heart Rate: normal rate 04/07/2017 None Full Exam - ENT Cardiovascular auscultation of heart Rhythm: regular rhythm 04/07/2017 None Full Exam - ENT Lymphatic palpation of lymph nodes Overall: anterior cervical chain benign 04/07/2017 None Full Exam - ENT Lymphatic palpation of lymph nodes Overall: posterior cervical chain benign 04/07/2017 None Full Exam - ENT Neurologic mood and affect Overall: normal mood 04/07/2017 None Full Exam - ENT Neurologic mood and affect Overall: normal affect 04/07/2017 None Full Exam - ENT Neurologic orientation Overall: oriented to person, place and time 04/07/2017 None Full Exam - General 1994 Constitutional general appearance Overall: well developed 09/08/2016 None Full Exam - General 1994 Constitutional general appearance Overall: in no acute distress 09/08/2016 None Full Exam - General 1994 Constitutional general appearance Overall: well nourished 09/08/2016 None Full Exam - General 1994 Eyes conjunctiva/eyelids Overall: conjunctiva clear 09/08/2016 None Full Exam - General 1994 Eyes conjunctiva/eyelids Overall: eyelids normal 09/08/2016 None Full Exam - General 1994 Ears/Nose/Throat lips/teeth/gingiva Overall: benign lips 09/08/2016 None Full Exam - General 1994 Ears/Nose/Throat oral cavity/pharynx/larynx Overall: oral mucosa clear 09/08/2016 None Full Exam - General 1994 Respiratory respiratory effort/rhythm Overall: no retractions 09/08/2016 None Full Exam - General 1994 Respiratory respiratory effort/rhythm Overall: normal rate 09/08/2016 None Full Exam - General 1994 Respiratory auscultation Overall: breath sounds clear bilaterally 09/08/2016 None Full Exam - General 1994 Cardiovascular auscultation of heart Overall: regular rate 09/08/2016 None Full Exam - General 1994 Cardiovascular auscultation of heart Overall: normal heart sounds 09/08/2016 None Full Exam - General 1994 Neurologic cranial nerves Overall: crainial nerves 2 - 12 grossly intact 09/08/2016 None Full Exam - General 1994 Psychiatric orientation/consciousness Overall: oriented to person, place and time 09/08/2016 None Full Exam - General 1994 Psychiatric mood and affect Overall: normal mood and affect 09/08/2016 None Full Exam - General 1994 Psychiatric appearance Overall: well-groomed, good eye contact 09/08/2016 None Full Exam - General 1994 Constitutional general appearance Overall: well developed 08/11/2016 None Full Exam - General 1994 Constitutional general appearance Overall: in no acute distress 08/11/2016 None Full Exam - General 1994 Constitutional general appearance Overall: well nourished 08/11/2016 None Full Exam - General 1994 Eyes conjunctiva/eyelids Overall: conjunctiva clear 08/11/2016 None Full Exam - General 1994 Eyes conjunctiva/eyelids Overall: eyelids normal 08/11/2016 None Full Exam - General 1994 Ears/Nose/Throat lips/teeth/gingiva Overall: benign lips 08/11/2016 None Full Exam - General 1994 Ears/Nose/Throat oral cavity/pharynx/larynx Overall: oral mucosa clear 08/11/2016 None Full Exam - General 1994 Respiratory auscultation Overall: breath sounds clear bilaterally 08/11/2016 None Full Exam - General 1994 Respiratory respiratory effort/rhythm Overall: no retractions 08/11/2016 None Full Exam - General 1994 Respiratory respiratory effort/rhythm Overall: normal rate 08/11/2016 None Full Exam - General 1994 Cardiovascular auscultation of heart Overall: regular rate 08/11/2016 None Full Exam - General 1994 Cardiovascular auscultation of heart Overall: normal heart sounds 08/11/2016 None Full Exam - General 1994 Musculoskeletal head and neck Overall: head atraumatic 08/11/2016 None Full Exam - General 1994 Neurologic cranial nerves Overall: crainial nerves 2 - 12 grossly intact 08/11/2016 None Full Exam - General 1994 Psychiatric orientation/consciousness Overall: oriented to person, place and time 08/11/2016 None Full Exam - General 1994 Psychiatric mood and affect Mood: depressed 08/11/2016 None Full Exam - General 1994 Psychiatric mood and affect Mood: anxious 08/11/2016 None Full Exam - General 1994 Psychiatric appearance Overall: well-groomed, good eye contact 08/11/2016 None Full Exam - General 1994 Constitutional general appearance Overall: well developed 11/23/2015 None Full Exam - General 1994 Constitutional general appearance Overall: in no acute distress 11/23/2015 None Full Exam - General 1994 Constitutional general appearance Overall: well nourished 11/23/2015 None Full Exam - General 1994 Eyes conjunctiva/eyelids Overall: conjunctiva clear 11/23/2015 None Full Exam - General 1994 Eyes conjunctiva/eyelids Overall: cornea clear 11/23/2015 None Full Exam - General 1994 Eyes conjunctiva/eyelids Overall: eyelids normal 11/23/2015 None Full Exam - General 1994 Eyes pupils and irises Overall: pupils equal, round, reactive to light and accomodation 11/23/2015 None Full Exam - General 1994 Ears/Nose/Throat otoscopic exam Overall: external auditory canals clear 11/23/2015 None Full Exam - General 1994 Ears/Nose/Throat otoscopic exam Overall: tympanic membranes clear 11/23/2015 None Full Exam - General 1994 Ears/Nose/Throat lips/teeth/gingiva Overall: benign lips 11/23/2015 None Full Exam - General 1994 Ears/Nose/Throat lips/teeth/gingiva Overall: normal dentition 11/23/2015 None Full Exam - General 1994 Ears/Nose/Throat oral cavity/pharynx/larynx Overall: oral mucosa clear 11/23/2015 None Full Exam - General 1994 Ears/Nose/Throat oral cavity/pharynx/larynx Overall: oropharyngeal mucosa clear 11/23/2015 None Full Exam - General 1994 Ears/Nose/Throat oral cavity/pharynx/larynx Overall: no masses 11/23/2015 None Full Exam - General 1994 Respiratory auscultation Overall: breath sounds clear bilaterally 11/23/2015 None Full Exam - General 1994 Respiratory respiratory effort/rhythm Overall: no retractions 11/23/2015 None Full Exam - General 1994 Respiratory respiratory effort/rhythm Overall: normal rate 11/23/2015 None Full Exam - General 1994 Cardiovascular auscultation of heart Overall: regular rate 11/23/2015 None Full Exam - General 1994 Cardiovascular auscultation of heart Overall: normal heart sounds 11/23/2015 None Full Exam - General 1994 Cardiovascular extremities Overall: no clubbing 11/23/2015 None Full Exam - General 1994 Abdomen abdominal exam Overall: no tenderness 11/23/2015 None Full Exam - General 1994 Abdomen abdominal exam Overall: normal bowel sounds 11/23/2015 None Full Exam - General 1994 Lymphatic neck nodes Overall: anterior cervical chain benign 11/23/2015 None Full Exam - General 1994 Lymphatic neck nodes Overall: posterior cervical chain benign 11/23/2015 None Full Exam - General 1994 Musculoskeletal gait and station Overall: normal gait 11/23/2015 None Full Exam - General 1994 Musculoskeletal gait and station Overall: normal station 11/23/2015 None Full Exam - General 1994 Musculoskeletal head and neck Overall: head atraumatic 11/23/2015 None Full Exam - General 1994 Musculoskeletal spine, ribs and pelvis Overall: good posture 11/23/2015 None Full Exam - General 1994 Integument inspection of skin Overall: no rash, lesions 11/23/2015 None Full Exam - General 1994 Neurologic cranial nerves Overall: crainial nerves 2 - 12 grossly intact 11/23/2015 None Full Exam - General 1994 Psychiatric orientation/consciousness Overall: oriented to person, place and time 11/23/2015 None Full Exam - General 1994 Psychiatric mood and affect Overall: normal mood and affect 11/23/2015 None Full Exam - General 1994 Psychiatric appearance Overall: well-groomed, good eye contact 11/23/2015 None Procedures No Procedures data Vital Signs Date Vital 06/24/2018 Blood Pressure 1: 120/78 Code: 8480-6 BMI: 26.6 Code: 56074-5 Heart Rate 1: 73 bpm Height: 5'5" SpO2: 98% Weight: 160 lbs 09/23/2017 Blood Pressure 1: 132/80 Code: 8480-6 BMI: 27.8 Code: 92156-9 Heart Rate 1: 92 bpm Height: 5'5" SpO2: 99% Weight: 167 lbs 04/07/2017 Blood Pressure 1: 126/78 Code: 8480-6 Heart Rate 1: 79 bpm Height: 5'5" SpO2: 98% Temperature: 36.9 (C) / 98.4 (F) Weight: 09/08/2016 Blood Pressure 1: 111/78 Code: 8480-6 BMI: 26.3 Code: 13501-7 Heart Rate 1: 72 bpm Height: 5'5" SpO2: 96% Weight: 158 lbs 08/11/2016 Blood Pressure 1: 120/64 Code: 8480-6 BMI: 26.3 Code: 90999-5 Heart Rate 1: 78 bpm Height: 5'5" SpO2: 98% Weight: 158 lbs 11/23/2015 Blood Pressure 1: 110/82 Code: 8480-6 BMI: 26.6 Code: 45990-8 Heart Rate 1: 74 bpm Height: 5'5" SpO2: 97% Weight: 160 lbs Functional Status No Functional Status data History of Present Illness Symptom Name Status Result Effective Date Notes Date of procedure 06/17/2018 06/24/2018 None General Recovery well 06/24/2018 None Location in the left upper outer quadrant 06/24/2018 None Location in the left upper inner quadrant 06/24/2018 None Pertinent Findings Denies fever 06/24/2018 None anxiety Quality chronic 09/23/2017 None anxiety Onset and Resolution ongoing 09/23/2017 None anxiety Alleviating Factors medication 09/23/2017 None chest congestion Quality constant 04/07/2017 None chest congestion Onset and Resolution ongoing 04/07/2017 None chest congestion Onset of Symptom 2 weeks ago 04/07/2017 None chest congestion Pertinent Findings cough 04/07/2017 None sore throat Location diffusely 04/07/2017 None sore throat Quality aching 04/07/2017 None medication follow up Additional Comments medication use 09/08/2016 None medication follow up Location oral intake 09/08/2016 None anxiety Quality improving 09/08/2016 None anxiety Onset and Resolution ongoing 09/08/2016 None anxiety Pertinent Findings Denies dyspnea 09/08/2016 None medication follow up Additional Comments medication use 08/11/2016 None medication follow up Location oral intake 08/11/2016 None medication follow up side effect Other: feeling down 08/11/2016 None hypertension Quality chronic 11/23/2015 None hypertension Quality stable 11/23/2015 None hypertension Onset and Resolution ongoing 11/23/2015 None hypertension Onset of Symptom during adulthood 11/23/2015 None hypertension Pertinent Findings Denies dyspnea 11/23/2015 None hypertension Alleviating Factors medication 11/23/2015 None hypertension Exacerbating Factors stress 11/23/2015 None hypertension Alleviating Factors diet changes 11/23/2015 None hypertension Alleviating Factors exercise 11/23/2015 None Advance Directives No Advance Directive data Encounters Encounter Performer Location Codes Date 71363 EST. PATIENT, LEVEL III Diagnosis: Encounter for other specified surgical aftercare[ICD10: Z48.89] Toyin Brown MD, [facility] CPT-4: 98030 06/24/2018 51302 EST. PATIENT, LEVEL III Diagnosis: Generalized anxiety disorder[ICD10: F41.1] Diagnosis: Major depressive disorder, single episode, moderate[ICD10: F32.1] Toyin Brown MD, [facility] CPT-4: 35138 09/23/2017 22595 EST. PATIENT, LEVEL III Diagnosis: Acute laryngopharyngitis[ICD10: J06.0] Diagnosis: Other allergic rhinitis[ICD10: J30.89] Toyin Brown MD, [facility] CPT- 4: 19559 04/07/2017 39632 EST. PATIENT, LEVEL IV Diagnosis: Generalized anxiety disorder[ICD10: F41.1] Diagnosis: Major depressive disorder, single episode, moderate[ICD10: F32.1] Toyin Brown MD, [facility] CPT-4: 25526 09/08/2016 46969 EST. PATIENT, LEVEL III Diagnosis: Generalized anxiety disorder[ICD10: F41.1] Diagnosis: Major depressive disorder, single episode, moderate[ICD10: F32.1] Toyin Brown MD, [facility] CPT-4: 87153 08/11/2016 (18200) PREV VISIT NEW AGE 40-64 Diagnosis: Essential (primary) hypertension[ICD10: I10] [facility] CPT-4: 91722 11/23/2015 Plan of Care Planned Activity Notes Codes Status Date Visit Plan: Follow up - pt is to keep her appointment with Dr. Montanez and is to notify clinic with any changes, questions, or concerns. 06/24/2018 Appointment: Toyin Turk WPtel: [address] [place], [place] [phone] (15 min) Moderate 06/24/2018 Patient Education: Patient Medication Summary Completed 06/24/2018 Patient Education: Patient Medication Summary Completed 06/15/2018 Patient Education: Patient Medication Summary Completed 05/24/2018 Patient Education: Patient Medication Summary Completed 05/21/2018 Visit Plan: Chronic Depression and anxiety - Discussed pt's family stress and various ways to manage stress - the pt has symptoms of chronic anxiety and depression that have been fairly well controlled since the last office visit. The pt has expected periods of exacerbation with abatement of the symptoms with change in situational exposure. No change in current medications. 09/23/2017 Patient Education: Patient Medication Summary Completed 09/23/2017 Visit Plan: URI - Pt advised to increase fluids, vitamin C. Discussed natural and expected course of this diagnosis and need to alert me if symptoms do not follow expected course, or if any worse. RX sent to patient's pharmacy. Allergies - chronic - recommended pt to use allergy medication as prescribed. Pt has been counseled as to the appropriate use of the medication. Pt to call if allergy symptoms are not controlled with the medication. If using nasal spray, instructions as follows: Nasal spray- use twice daily, one spray per nostril twice daily, after 30 minutes, rinse out nose with saline spray.. Use opposite hand per nostril to spray in the nasal steroid allergy spray. 04/07/2017 [facility]ment[facility] [phone] [phone] ([facility] min[facility] 04/07/2017 Patient Education: Patient Medication Summary Completed 04/07/2017 Visit Plan: Chronic Depression and anxiety - the pt has symptoms of chronic anxiety and depression that have been fairly well controlled since the last office visit. The pt has expected periods of exacerbation with abatement of the symptoms with change in situational exposure. No change in current medications. 09/08/2016 Appointment: [facility] [phone] [phone] (30 min) Complex 09/08/2016 Patient Education: Patient Medication Summary Completed 09/08/2016 Patient Education: Obesity Completed 09/08/2016 Visit Plan: Anxiety/depression - the patient has uncontrolled anxiety and will benefit from an SSRI on a daily basis to attempt control of the symptoms of anxiety and depression (tachycardia, overwhelming sensations, stress, insomnia, etc). Pt is aware of the risks and benefits of treatment with the above medications. 08/11/2016 Appointment: [facility] Turk [facility] [phone] [phone] ([facility] min) Complex 08/11/2016 Patient Education: Patient Medication Summary Completed 08/11/2016 Patient Education: Obesity Completed 08/11/2016 Visit Plan: Well Adult - pt was counseled about diet, exercise, and encouraged to follow a heart healthy diet and increase activity level. The patient was instructed to RTC yearly for well adult exams and PRN for acute illnesses. The pt was also instructed to have yearly labs for check of cholesterol, thyroid, chem panel, CBC, and renal functioning. Hypertension - well controlled - continue with current medications, continue with no added salt diet. Pt has been encouraged to exercise daily. The pt has been advised to call the office if there are any acute concerns about change in blood pressure readings at home. 11/23/2015 Appointment: Evi Dinero [facility] [phone] [phone] New Patient 11/23/2015 Patient Education: Patient Medication Summary Completed 11/23/2015 Patient Education: Obesity Completed 11/23/2015 Patient Education: Hypertension Completed 11/23/2015 Instructions Comment . Well Adult - pt was counseled about diet, exercise, and encouraged to follow a heart healthy diet and increase activity level. The patient was instructed to RTC yearly for well adult exams and PRN for acute illnesses. The pt was also instructed to have yearly labs for check of cholesterol, thyroid, chem panel, CBC, and renal functioning. Hypertension - well controlled - continue with current medications, continue with no added salt diet. Pt has been encouraged to exercise daily. The pt has been advised to call the office if there are any acute concerns about change in blood pressure readings at home. . Follow up - pt is to keep her appointment with Dr. Montanez and is to notify clinic with any changes, questions, or concerns. Wellbutrin 75mg twice a day for 1 week, Wellbutrin 75mg once a day for one 1 week and prozac, then stop wellbutrin and increase prozac to 40mg if needed. . Anxiety/depression - the patient has uncontrolled anxiety and will benefit from an SSRI on a daily basis to attempt control of the symptoms of anxiety and depression (tachycardia, overwhelming sensations, stress, insomnia, etc). Pt is aware of the risks and benefits of treatment with the above medications. . Chronic Depression and anxiety - the pt has symptoms of chronic anxiety and depression that have been fairly well controlled since the last office visit. The pt has expected periods of exacerbation with abatement of the symptoms with change in situational exposure. No change in current medications. . Chronic Depression and anxiety - Discussed pt's family stress and various ways to manage stress - the pt has symptoms of chronic anxiety and depression that have been fairly well controlled since the last office visit. The pt has expected periods of exacerbation with abatement of the symptoms with change in situational exposure. No change in current medications. . URI - Pt advised to increase fluids, vitamin C. Discussed natural and expected course of this diagnosis and need to alert me if symptoms do not follow expected course, or if any worse. RX sent to patient's pharmacy. Allergies - chronic - recommended pt to use allergy medication as prescribed. Pt has been counseled as to the appropriate use of the medication. Pt to call if allergy symptoms are not controlled with the medication. If using nasal spray, instructions as follows: Nasal spray- use twice daily, one spray per nostril twice daily, after 30 minutes, rinse out nose with saline spray.. Use opposite hand per nostril to spray in the nasal steroid allergy spray.
--- OUTSIDE RECORDS SUMMARY | 2018-12-10 09:15 | XMS REPORT | Encounter Summary ---
Author Author [facility] Organization [facility] Address Unknown Phone Unavailable Care Team Providers Care Jailkeeper Name Role Phone PCP Unavailable Encounter Details Care Team Description Date Type Department [facility] Provider, MD Timothy 08/17/2002 [facility] Social History Date Tobacco Use Types Packs/Day [...] Procedure Name Priority Date/Time Associated Diagnosis ECHO EJECTION FRACTION Routine 08/17/2002 HISTORICAL 9:17 AM CDT documented in this encounter Results * Echo Ejection Fraction historical (08/17/2002 9:17 AM CDT) Ejection 55Comment: Echo PROSOLV Fraction Specimen Performing Organization Address City/State/Zipcode Phone Number PROSOLV documented in this encounter Visit Diagnoses Not on filedocumented in this encounter
--- OUTSIDE RECORDS SUMMARY | 2018-12-10 09:15 | XMS REPORT | Encounter Summary ---
Author Author [facility] Organization [facility] Address Unknown Phone Unavailable Care Team Providers Care Water Resources Business Segment Leader Name Role Phone PCP Unavailable Encounter Details Care Team Description Date Type Department [facility] Provider, MD Timothy [facility] Result Social History [...] Comments Procedure Name Priority Date/Time Associated Diagnosis CATHETERIZATION Routine HISTORICAL documented in this encounter Results * Catheterization historical () Specimen Narrative Performed At Procedure Category: Invasive NEXTGEN Procedure: PCI Procedure Summary:She underwent acute angioplasty and stenting of the RCAl.She was noted to have 30-40% plaque in the proximal and mid to left circumflex coronary artery.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 Procedure Note Interface, Rad Conversion - 11/22/2014 8:54 AM CDT Procedure Category: Invasive Procedure: PCI Procedure Summary: She underwent acute angioplasty and stenting of the RCAl. She was noted to have 30-40% plaque in the proximal and mid to left circumflex coronary artery. 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 LV function was normal with an LVEF of 50%. Performing Organization Address City/State/Zipcode Phone Number NEXTGEN documented in this encounter Visit Diagnoses Not on filedocumented in this encounter
--- OUTSIDE RECORDS SUMMARY | 2018-12-10 09:15 | XMS REPORT | Encounter Summary ---
Author Author [facility] Organization [facility] Address Unknown Phone Unavailable Care Team Providers Care Assistant Teacher Name Role Phone PCP Unavailable Encounter Details Care Team Description Date Type Department Armida Stahl MD [address] [facility] [address] [place], [place] [id number] 07/29/2002 [facility] Encounter [address] [place], [place] [id number] Social History Date Tobacco Use Types Packs/Day Years Used Never Assessed Sex Assigned at Date Recorded Not on file Industry Job Start Date Occupation Not on file Not on file Not on file Travel End Travel History Travel Start No recent travel history available. documented as of this encounter Medications at Time of Discharge Start Date End Date Medication Sig Dispensed Refills 12/06/2014 aspirin 81 MG chewable Take by 0 tablet mouth. 12/06/2014 atenolol (TENORMIN) 25 MG Take by 0 tablet mouth. 12/06/2014 atorvastatin (LIPITOR) 20 Take by 0 MG tablet mouth. 12/06/2014 calcium carbonate-vit Take by 0 D3-min (CALTRATE 600+D mouth. PLUS MINERALS) 600 mg calcium- 400 unit Tab 12/06/2014 escitalopram oxalate Take by 0 (LEXAPRO) 20 MG tablet mouth. 12/06/2014 hydrochlorothiazide Take by 0 (HYDRODIURIL) 25 MG mouth. tablet 12/06/2014 [facility] Take by 0 mouth. 12/06/2014 multivitamin (THERAGRAN) Take by 0 per tablet mouth. documented as of this encounter Plan of Treatment Not on filedocumented as of this encounter Procedures Comments Procedure Name Priority Date/Time Associated Diagnosis CARDIOVASCULAR RISK PANEL Routine 07/29/2002 12:35 PM [facility] ANTITHROMBIN Routine 07/29/2002 12:35 PM [facility] PROTEIN S IMMUNOLOGIC Routine 07/29/2002 12:35 PM [facility] PROTEIN C IMMUNOLOGIC Routine 07/29/2002 12:35 PM [facility] PROTEIN C ACTIVITY Routine 07/29/2002 12:35 PM [facility] ANTICARDIOLIPIN Routine 07/29/2002 ANTIBODIES 12:35 PM [facility] ACTIVATED PROTEIN C Routine 07/29/2002 RESISTANCE 12:35 PM [facility] documented in this encounter Results * CARDIOVASCULAR RISK PANEL (07/29/2002 12:35 PM [facility]) Fibrinogen 297 f MG/DL [facility] Cardio Risk Panel HS CRP Cardio 0.53 f MG/L [facility]QUEST Risk Panel HOMOCYSTEINE 5.6 f UMOL/L [facility] CARDIO RISK PANEL LIPOPROTEIN(A) 140.0 f MG/DL [facility] CARDIO RISK P Hemoglobin A1C 5.2 f % [facility]QUEST Cardio Risk Panel Specimen Narrative Performed At Report [facility] Comments and Normal Ranges for ComponentFIBRINGN/C(MG/DL) TERTILE FIBRINOGEN (mg/dL) RISK RATIO 1<250 1.0 2250-350 NA 3>350 1.8 Comments and Normal Ranges for ComponentHS CRP/C(MG/DL) QUINTILE hs-CRP RANGE (mg/dL)CV RISK ESTIMATE 1 <0.06 LOW 2 0.06-0.09 MILD 3 0.10-0.16 MODERATE 4 0.17-0.32 HIGH 5 >0.32HIGHEST Comments and Normal Ranges for ComponentHOMOCYS/C(UMOL/L) INTERPRETATIONHCY LEVEL (uM/L) RISK RATIO OPTIMAL <12 1.0 BORDERLINE 12-151.9 MODERATE ELEVATION 16-302.2 SIGNIFICANT ELEVATION >30 5.7 Comments and Normal Ranges for ComponentLP A/C(MG/DL) QUARTILE LP(a) mg/dLRELATIVE RISK 1 0-7.0 1.00 2 7.1-25.31.01 325.4-54.91.31 455-236 1.54 Comments and Normal Ranges for ComponentHGB A1C/C(%) HGB [id number] RISK <5%1.0 5.0-6.9 2.5 7% OR > 5.0 Performing Organization Address [facility] [place] Phone Number [facility] [phone] [place] [address] SUNQUEST * Antithrombin (07/29/2002 12:35 PM [facility]) Antithrombin 89 80 - 130 % SUNQUEST Specimen Blood Performing Organization Address [facility] [place] Phone Number [facility] [phone] [place] [address] SUNQUEST * Protein S Immunologic (07/29/2002 12:35 PM [facility]) Protein S 113 70 - 140 % [facility] Antigen Total Protein S 110 57 - 120 % [facility] Antigen Free Specimen Blood Performing Organization [facility] [place] Phone Number [facility] [phone] [place] [address] SUNQUEST * Protein C Activity (07/29/2002 12:35 PM [facility]) Protein C 61 (L) 70 - 140 % SUNQUEST Activity Specimen Blood Performing Organization [facility] [place] Phone Number [facility] [phone] [place] [address] SUNQUEST * Activated Protein C Resistance (07/29/2002 12:35 PM [facility]) Activated 2.09 >1.95 RATIO SUNQUEST Protein C Resistance Specimen Blood Performing Organization [facility] [place] Phone Number [facility] [phone] [place] [address] SUNQUEST * Anticardiolipin Antibodies (07/29/2002 12:35 PM [facility]) Anticardiolipin 2 0 - 20 GPL [facility]QUEST IgG Anticardiolipin 9 f 0 - 20 MPL [facility]QUEST IgM Specimen Blood Narrative Performed At Report SUNQUEST Comments and Normal Ranges for ComponentACA IGM(MPL) In the presence of appropriate clinical criteria (vascular thrombosis or complications of ), diagnosis of the antiphospholipid antibody syndrome requires a positive test for lupus anticoagulant on two or more occasions at least six weeks apart, or moderate to high titer anticardiolipin antibodies (IgG>30 GPL units or IgM>30 MPL units) on two or more occasions at least six weeks apart. Performing Organization Address [facility] Phone Number RL [phone] [place] [address] SUNQUEST * Protein C Immunologic (07/29/2002 12:35 PM [facility]) Protein C 91 65 - 140 % SUNQUEST Antigen Specimen Blood Performing Organization Address City/[facility] Phone Number [facility] [address] [place] [address] SUNQUEST documented in this encounter Visit Diagnoses Not on filedocumented in this encounter
--- OUTSIDE RECORDS SUMMARY | 2018-12-10 09:15 | XMS REPORT | Encounter Summary ---
Author Author [facility] Organization [facility] Address Unknown Phone Unavailable Care Team Providers Care Fall Intern Name Role Phone PCP Unavailable Encounter Details Care Team Description Date Type Department [facility] Provider, MD Timothy 08/17/2002 [facility] Result Social History Date [...] Comments Procedure Name Priority Date/Time Associated Diagnosis CV MPI SPECT HISTORICAL Routine 08/17/2002 documented in this encounter Results * CV MPI SPECT historical (08/17/2002) Specimen Narrative Performed At Procedure Category: NUC NEXTGEN Procedure: Exercise-Reinjection Thallium-201 Procedure Summary: No definite ischemia.Normal LV systolic function, LVEF 76%.Breast attenuation artifact.Suggest PET or attenuation correction SPECT for future perfusion imaging. Procedure Note Interface, Rad Conversion - 11/22/2014 11:48 AM CDT Procedure Category: NUC Procedure: Exercise-Reinjection Thallium-201 Procedure Summary: No definite ischemia.Normal LV systolic function, LVEF 76%.Breast attenuation artifact.Suggest PET or attenuation correction SPECT for future perfusion imaging. Performing Organization Address City/State/Zipcode Phone Number NEXTGEN documented in this encounter Visit Diagnoses Not on filedocumented in this encounter
--- OUTSIDE RECORDS SUMMARY | 2018-12-10 09:15 | XMS REPORT | Encounter Summary ---
Author Author [facility] Organization [facility] Address Unknown Phone Unavailable Care Team Providers Care Material Control Supervisor Name Role Phone PCP Unavailable Encounter Details Care Team Description Date Type Department Leticia Pino MD [address] [address] [phone] 01/22/2005 [facility] Visit Social History Date [...]
--- OUTSIDE RECORDS SUMMARY | 2018-12-10 09:15 | XMS REPORT | Encounter Summary ---
Author Author [facility] Organization [facility] Address Unknown Phone Unavailable Care Team Providers Care Trust Advisor Name Role Phone PCP Unavailable Encounter Details Care Team Description Date Type Department [facility] Provider, MD Timothy 08/17/2002 [facility] EF [facility] Social History Date Tobacco Use [...] Comments Procedure Name Priority Date/Time Associated Diagnosis NUC EJECTION FRACTION Routine 08/17/2002 HISTORICAL 12:00 AM CDT documented in this encounter Results * Nuc Ejection Fraction historical (08/17/2002 12:00 AM CDT) Ejection 76Comment: Nuclear NUCMED Fraction (Adenosine-Reinjection Thallium-201) Specimen Performing Organization Address City/State/Zipcode Phone Number NUCMED documented in this encounter Visit Diagnoses Not on filedocumented in this encounter
--- OUTSIDE RECORDS SUMMARY | 2018-12-10 09:15 | XMS REPORT | Encounter Summary ---
Author Author [facility] Organization [facility] Address Unknown Phone Unavailable Care Team Providers Care Detacker Name Role Phone PCP Unavailable Encounter Details Care Team Description Date Type Department [facility] Provider, MD Timothy [facility] Result Social History Date Tobacco [...] Procedure Name Priority Date/Time Associated Diagnosis ECHO HISTORICAL Routine 08/17/2002 documented in this encounter Results * Echo historical (08/17/2002) Specimen Narrative Performed At Procedure Category: ECHO NEXTGEN Procedure: Echocardiogram Procedure Summary: 1.Normal left ventricular systolic function, with an estimated ejection fraction of 55%. 2.Inferior wall hypokinesis. 3.No valvular abnormalities. Procedure Note Interface, Rad Conversion - 11/22/2014 11:48 AM CDT Procedure Category: ECHO Procedure: Echocardiogram Procedure Summary: 1. Normal left ventricular systolic function, with an estimated ejection fraction of 55%. 2. Inferior wall hypokinesis. 3. No valvular abnormalities. Performing Organization Address City/State/Zipcode Phone Number NEXTGEN documented in this encounter Visit Diagnoses Not on filedocumented in this encounter
--- OUTSIDE RECORDS SUMMARY | 2018-12-10 09:16 | XMS REPORT | CCD ---
Author Author Toyin Turk MD, [facility] Address [address] [place] [address] Phone Care Team Providers Care Undercover Agent Name Role Phone PP Unavailable CCM Unavailable Summary Purpose Interface Exchange Insurance Providers Payer name Policy type / Coverage type Covered alliance party ID Effective Begin Date Effective End Date Blue Cross Blue [facility] Blue Cross/Blue Shield [id number] Unknown Unknown Family history Sister Diagnosis Age [...] 2 adopted 11/23/[address]: 8390269 Quit less than 10 years ago 11/23/[address]: 144409914 Never drinks alcohol 11/23/2015 Allergies, Adverse Reactions, Alerts Substance Reaction Codes Entered Date Inactivated Date Status * NO KNOWN DRUG ALLERGIES Unknown 11/23/2015 No Inactive Date Active Past Medical History Illness Codes Condition Status Onset Date Resolved Date Other abnormal and inconclusive findings on diagnostic [...] Problems Condition Codes Effective Dates Condition Status Other abnormal and inconclusive findings on diagnostic [...] Fill Instructions Prozac 20 mg capsule RxNorm: 678384 1 CAPSULE(S) PO DAILY 02/19/2018 11/15/2018 Active Prozac 20 mg capsule RxNorm: 477848 1 CAPSULE(S) PO DAILY 05/27/2017 02/18/2018 Inactive Zithromax Z-Raymond 250 mg tablet RxNorm: 114585 Tablet(s) PO UD 04/07/2017 05/26/2017 Inactive prednisone 20 mg tablet RxNorm: 435857 2 Tablet(s) PO daily 04/07/2017 04/11/2017 Inactive Prozac 20 mg capsule RxNorm: 276139 1 CAPSULE(S) PO DAILY 03/02/2017 05/26/2017 Inactive Prozac 20 mg capsule RxNorm: 184076 1 CAPSULE(S) PO DAILY 12/03/2016 03/01/2017 Inactive Transderm-Scop 1.5 mg transdermal patch (1 mg over 3 days) RxNorm: 086074 1 Patch TD q 3 days 09/24/2016 No Stop Date Active scopolamine 1.5 mg transdermal patch (1 mg over 3 days) RxNorm: 143645 1 TD q 3 days 09/23/2016 09/22/2016 Inactive scopolamine 1.5 mg transdermal patch (1 mg over 3 days) RxNorm: 535375 1 TD q 3 days as needed 09/23/2016 09/23/2016 Inactive Prozac 20 mg capsule RxNorm: 177243 1 Capsule(s) PO daily 09/08/2016 12/02/2016 Inactive Prozac 20 mg capsule RxNorm: 091521 1 Capsule(s) PO daily 08/11/2016 09/07/2016 Inactive Wellbutrin SR 150 mg tablet,sustained-release RxNorm: 133544 TAKE 1 TABLET BY MOUTH TWICE DAILY(DISCONTINUE 75MG) 07/24/2016 08/08/2016 Inactive Wellbutrin SR 150 mg tablet,sustained-release RxNorm: 196855 TAKE 1 TABLET BY MOUTH TWICE DAILY(DISCONTINUE 75MG) 06/25/2016 07/24/2016 Inactive Wellbutrin SR 150 mg tablet,sustained-release RxNorm: 299507 TAKE 1 TABLET BY MOUTH TWICE DAILY(DISCONTINUE 75MG) 05/22/2016 06/20/2016 Inactive Wellbutrin SR 150 mg tablet,sustained-release RxNorm: 615995 TAKE 1 TABLET BY MOUTH TWICE DAILY(DISCONTINUE 75MG) 04/24/2016 05/23/2016 Inactive Wellbutrin SR 150 mg tablet,sustained-release RxNorm: 809300 1 Tablet(s) PO BID 12/31/2015 04/23/2016 Inactive dc wellbutrin 75mg bid Wellbutrin SR 150 mg tablet,sustained-release RxNorm: 973469 1 Tablet(s) PO BID 12/31/2015 12/30/2015 Inactive dc wellbutrin 75mg bid Wellbutrin 75 mg tablet RxNorm: 447309 1 Tablet(s) PO BID 12/24/2015 12/30/2015 Inactive Wellbutrin 75 mg tablet RxNorm: 271081 1 Tablet(s) PO BID 11/27/2015 11/26/2015 Inactive Wellbutrin 75 mg tablet RxNorm: 604331 1 Tablet(s) PO BID 11/27/2015 12/23/2015 Inactive hydrochlorothiazide 25 mg tablet RxNorm: 167352 1 Tablet(s) PO daily No Start Date Active aspirin 81 mg tablet RxNorm: 064064 1 Tablet(s) PO daily No Start Date Active Multivitamin & Mineral Formula tablet RxNorm: 1 Tablet(s) PO daily No Start Date Active atenolol 25 mg tablet RxNorm: 241166 1 Tablet(s) PO daily No Start Date Active Lipitor 40 mg tablet RxNorm: 800538 1 Tablet(s) PO daily No Start Date Active Transderm-Scop 1.5 mg transdermal patch (1 mg over 3 days) RxNorm: 755940 1 Patch TD q 3 days No Start Date 09/23/2016 Inactive Lexapro 20 mg tablet RxNorm: 998794 1 Tablet(s) PO daily No Start Date 11/26/2015 Inactive Medication Administered No Medication Administered data Immunizations No Immunization data Assessments Condition Codes Effective Dates Other abnormal and inconclusive findings on diagnostic [...] Visit Reason For Visit Effective Dates Notes anxiety 09/23/2017 chest congestion 04/07/2017 medication follow up 09/08/2016 medication follow up 08/11/2016 hypertension 11/23/2015 Results No Results data Review of Systems System Result Effective Dates Constitutional No recent illness 09/23/2017 Constitutional No [...] No Procedures data Vital Signs Date Vital 09/23/2017 Blood Pressure 1: 132/80 Code: 8480-6 BMI: 27.8 Code: 37028-3 Heart Rate 1: 92 bpm Height: 5'5" SpO2: 99% Weight: 167 lbs 04/07/2017 Blood Pressure 1: 126/78 Code: 8480-6 Heart Rate 1: 79 bpm Height: 5'5" SpO2: 98% Temperature: 36.9 (C) / 98.4 (F) Weight: 09/08/2016 Blood Pressure 1: 111/78 Code: 8480-6 BMI: 26.3 Code: 67551-7 Heart Rate 1: 72 bpm Height: 5'5" SpO2: 96% Weight: 158 lbs 08/11/2016 Blood Pressure 1: 120/64 Code: 8480-6 BMI: 26.3 Code: 78744-4 Heart Rate 1: 78 bpm Height: 5'5" SpO2: 98% Weight: 158 lbs 11/23/2015 Blood Pressure 1: 110/82 Code: 8480-6 BMI: 26.6 Code: 61949-1 Heart Rate 1: 74 bpm Height: 5'5" SpO2: 97% Weight: 160 lbs Functional Status No Functional Status data History of Present Illness Symptom Name Status Result Effective Date Notes anxiety Quality chronic 09/23/2017 None anxiety Onset [...] data Encounters Encounter Performer Location Codes Date 11791 EST. PATIENT, LEVEL III Diagnosis: Generalized anxiety disorder[ICD10: F41.1] Diagnosis: Major depressive disorder, single episode, moderate[ICD10: F32.1] Toyin Brown MD, [facility] CPT-4: 38812 09/23/2017 49321 EST. PATIENT, LEVEL III Diagnosis: Acute laryngopharyngitis[ICD10: J06.0] Diagnosis: Other allergic rhinitis[ICD10: J30.89] Toyin Brown MD, [facility] CPT- 4: 87716 04/07/2017 41473 EST. PATIENT, LEVEL IV Diagnosis: Generalized anxiety disorder[ICD10: F41.1] Diagnosis: Major depressive disorder, single episode, moderate[ICD10: F32.1] Toyin Brown MD, [facility] CPT-4: 69271 09/08/2016 92876 EST. PATIENT, LEVEL III Diagnosis: Generalized anxiety disorder[ICD10: F41.1] Diagnosis: Major depressive disorder, single episode, moderate[ICD10: F32.1] Toyin Brown MD, [facility] CPT-4: 39173 08/11/2016 ([id number]) PREV VISIT NEW AGE 40-64 Diagnosis: Essential (primary) hypertension[ICD10: I10] Toyin Brown MD, [facility] CPT-4: 46646 11/23/2015 Plan of Care Planned Activity Notes Codes Status Date Patient Education: Patient Medication Summary Completed 06/15/2018 Care Plan: Unilateral DIAGNOSTICMAMMOGRAPHYDIGITAL LOINC : 16742-3 Pending 06/15/2018 Patient Education: Patient Medication Summary Completed [...] spray. 04/07/2017 [facility] [phone] [facility] ([facility] 04/07/2017 Patient Education: [...] medications. 09/08/2016 [phone] [facility] ([facility] 09/08/2016 Patient Education: [...] medications. 08/11/2016 Appointment: Toyin Turk WPtel: [phone] [facility] (30 min) Complex 08/11/2016 Patient Education: Patient [...] home. 11/23/2015 [facility] [phone] [facility] New Patient 11/23/2015 Patient Education: Patient Medication [...] change in blood pressure readings at home. Wellbutrin 75mg twice a day for 1 [...]
--- OUTSIDE RECORDS SUMMARY | 2018-12-10 09:16 | XMS REPORT | CCD ---
Author Author Toyin Turk MD, [facility] Address [address] [place] [address] Phone Care Team Providers Care Cooker Pie Filling Name Role Phone PP Unavailable CCM Unavailable Summary Purpose Interface Exchange Insurance Providers Payer name Policy type / Coverage type Covered libertarian ID Effective Begin Date Effective End Date Blue Cross Blue [facility] Blue Cross/Blue Shield [id number] Unknown Unknown Family history Sister Diagnosis Age [...] 2 adopted 11/23/[address]: 4743187 Quit less than 10 years ago 11/23/[address]: 592647016 Never drinks alcohol 11/23/2015 Allergies, Adverse Reactions, [...] Fill Instructions Prozac 20 mg capsule RxNorm: 428331 1 CAPSULE(S) PO DAILY 02/19/2018 11/15/2018 Active Prozac 20 mg capsule RxNorm: 449289 1 CAPSULE(S) PO DAILY 05/27/2017 02/18/2018 Inactive Zithromax Z-Raymodn 250 mg tablet RxNorm: 342320 Tablet(s) PO UD 04/07/2017 05/26/2017 Inactive prednisone 20 mg tablet RxNorm: 215460 2 Tablet(s) PO daily 04/07/2017 04/11/2017 Inactive Prozac 20 mg capsule RxNorm: 593912 1 CAPSULE(S) PO DAILY 03/02/2017 05/26/2017 Inactive Prozac 20 mg capsule RxNorm: 671074 1 CAPSULE(S) PO DAILY 12/03/2016 03/01/2017 Inactive Transderm-Scop 1.5 mg transdermal patch (1 mg over 3 days) RxNorm: 784010 1 Patch TD q 3 days 09/24/2016 No Stop Date Active scopolamine 1.5 mg transdermal patch (1 mg over 3 days) RxNorm: 852595 1 TD q 3 days 09/23/2016 09/22/2016 Inactive scopolamine 1.5 mg transdermal patch (1 mg over 3 days) RxNorm: 157430 1 TD q 3 days as needed 09/23/2016 09/23/2016 Inactive Prozac 20 mg capsule RxNorm: 934086 1 Capsule(s) PO daily 09/08/2016 12/02/2016 Inactive Prozac 20 mg capsule RxNorm: 980276 1 Capsule(s) PO daily 08/11/2016 09/07/2016 Inactive Wellbutrin SR 150 mg tablet,sustained-release RxNorm: 061561 TAKE 1 TABLET BY MOUTH TWICE DAILY(DISCONTINUE 75MG) 07/24/2016 08/08/2016 Inactive Wellbutrin SR 150 mg tablet,sustained-release RxNorm: 953582 TAKE 1 TABLET BY MOUTH TWICE DAILY(DISCONTINUE 75MG) 06/25/2016 07/24/2016 Inactive Wellbutrin SR 150 mg tablet,sustained-release RxNorm: 052733 TAKE 1 TABLET BY MOUTH TWICE DAILY(DISCONTINUE 75MG) 05/22/2016 06/20/2016 Inactive Wellbutrin SR 150 mg tablet,sustained-release RxNorm: 797222 TAKE 1 TABLET BY MOUTH TWICE DAILY(DISCONTINUE 75MG) 04/24/2016 05/23/2016 Inactive Wellbutrin SR 150 mg tablet,sustained-release RxNorm: 989996 1 Tablet(s) PO BID 12/31/2015 04/23/2016 Inactive dc wellbutrin 75mg bid Wellbutrin SR 150 mg tablet,sustained-release RxNorm: 434620 1 Tablet(s) PO BID 12/31/2015 12/30/2015 Inactive dc wellbutrin 75mg bid Wellbutrin 75 mg tablet RxNorm: 384405 1 Tablet(s) PO BID 12/24/2015 12/30/2015 Inactive Wellbutrin 75 mg tablet RxNorm: 880399 1 Tablet(s) PO BID 11/27/2015 11/26/2015 Inactive Wellbutrin 75 mg tablet RxNorm: 874961 1 Tablet(s) PO BID 11/27/2015 12/23/2015 Inactive hydrochlorothiazide 25 mg tablet RxNorm: 367026 1 Tablet(s) PO daily No Start Date Active aspirin 81 mg tablet RxNorm: 182918 1 Tablet(s) PO daily No Start Date Active Multivitamin & Mineral Formula tablet RxNorm: 1 Tablet(s) PO daily No Start Date Active atenolol 25 mg tablet RxNorm: 336663 1 Tablet(s) PO daily No Start Date Active Lipitor 40 mg tablet RxNorm: 697580 1 Tablet(s) PO daily No Start Date Active Transderm-Scop 1.5 mg transdermal patch (1 mg over 3 days) RxNorm: 103562 1 Patch TD q 3 days No Start Date 09/23/2016 Inactive Lexapro 20 mg tablet RxNorm: 672257 1 Tablet(s) PO daily No Start Date [...] 1: 120/78 Code: 8480-6 BMI: 26.6 Code: 10023-1 Heart Rate 1: 73 bpm Height: 5'5" SpO2: 98% Weight: 160 lbs 09/23/2017 Blood Pressure 1: 132/80 Code: 8480-6 BMI: 27.8 Code: 14133-6 Heart Rate 1: 92 bpm Height: 5'5" SpO2: 99% Weight: 167 lbs 04/07/2017 Blood Pressure 1: 126/78 Code: 8480-6 Heart Rate 1: 79 bpm Height: 5'5" SpO2: 98% Temperature: 36.9 (C) / 98.4 (F) Weight: 09/08/2016 Blood Pressure 1: 111/78 Code: 8480-6 BMI: 26.3 Code: 31574-9 Heart Rate 1: 72 bpm Height: 5'5" SpO2: 96% Weight: 158 lbs 08/11/2016 Blood Pressure 1: 120/64 Code: 8480-6 BMI: 26.3 Code: 82702-7 Heart Rate 1: 78 bpm Height: 5'5" SpO2: 98% Weight: 158 lbs 11/23/2015 Blood Pressure 1: 110/82 Code: 8480-6 BMI: 26.6 Code: 25257-3 Heart Rate 1: 74 bpm Height: 5'5" [...] data Encounters Encounter Performer Location Codes Date 20159 EST. PATIENT, LEVEL III Diagnosis: Encounter for other specified surgical aftercare[ICD10: Z48.89] Toyin Brown MD, [facility] CPT-4: 42673 06/24/2018 04812 EST. PATIENT, LEVEL III Diagnosis: Generalized anxiety disorder[ICD10: F41.1] Diagnosis: Major depressive disorder, single episode, moderate[ICD10: F32.1] Toyin Brown MD, [facility] CPT-4: 68259 09/23/2017 61049 EST. PATIENT, LEVEL III Diagnosis: Acute laryngopharyngitis[ICD10: J06.0] Diagnosis: Other allergic rhinitis[ICD10: J30.89] Toyin Brown MD, [facility] CPT- 4: 09573 04/07/2017 66295 EST. PATIENT, LEVEL IV Diagnosis: Generalized anxiety disorder[ICD10: F41.1] Diagnosis: Major depressive disorder, single episode, moderate[ICD10: F32.1] Toyin Brown MD, [facility] CPT-4: 57231 09/08/2016 63690 EST. PATIENT, LEVEL III Diagnosis: Generalized anxiety disorder[ICD10: F41.1] Diagnosis: Major depressive disorder, single episode, moderate[ICD10: F32.1] Toyin Brown MD, [facility] CPT-4: 52853 08/11/2016 ([id number]) PREV VISIT NEW AGE 40-64 Diagnosis: Essential (primary) hypertension[ICD10: I10] [facility] CPT-4: 06708 11/23/2015 Plan of Care Planned Activity Notes Codes Status Date Visit Plan: Follow up - pt is to keep her appointment with Dr. Montanez and is to notify clinic with any changes, questions, or concerns. 06/24/2018 Appointment: Toyin Turk WPtel: [address] [place], [place] [phone] (15 min) Moderate 06/24/2018 Patient Education: Patient [...] spray. 04/07/2017 [facility]ment[facility] [phone] [facility] ([facility] 04/07/2017 Patient Education: Patient [...] medications. 09/08/2016 Appointment: [facility] [phone] [facility] ([facility] [place]) Complex 09/08/2016 Patient Education: Patient [...] medications. 08/11/2016 Appointment: [facility] [phone] [facility] ([facility] [place]) Complex 08/11/2016 Patient Education: Patient [...] home. 11/23/2015 App[facility]ment[facility] [phone] [facility] New Patient 11/23/2015 Patient Education: Patient Medication [...]
--- OUTSIDE RECORDS SUMMARY | 2018-12-10 09:17 | XMS REPORT | CCD ---
Author Author Toyin uTrk MD, [facility] Address [address] [place] [address] Phone Care Team Providers Care Car Bracer Name Role Phone PP Unavailable CCM Unavailable Summary Purpose Interface Exchange Insurance Providers Payer name Policy type / Coverage type Covered democrat ID Effective Begin Date Effective End Date Blue Cross Blue [facility] Blue Cross/Blue Shield [id number] Unknown Unknown Family history Sister Diagnosis Age [...] 2 adopted 11/23/[address]: 9322113 Quit less than 10 years ago 11/23/[address]: 112917004 Never drinks alcohol 11/23/2015 Allergies, Adverse Reactions, Alerts Substance Reaction Codes Entered Date Inactivated Date Status * NO KNOWN DRUG ALLERGIES Unknown 11/23/2015 No Inactive Date Active Past Medical History Illness Codes Condition Status Onset Date Resolved Date Encounter for screening mammogram for malignant neoplasm [...] Codes Effective Dates Condition Status Encounter for screening mammogram for malignant neoplasm [...] Fill Instructions Prozac 20 mg capsule RxNorm: 099571 1 CAPSULE(S) PO DAILY 02/19/2018 11/15/2018 Active Prozac 20 mg capsule RxNorm: 518964 1 CAPSULE(S) PO DAILY 05/27/2017 02/18/2018 Inactive Zithromax Z-Raymond 250 mg tablet RxNorm: 733699 Tablet(s) PO UD 04/07/2017 05/26/2017 Inactive prednisone 20 mg tablet RxNorm: 222286 2 Tablet(s) PO daily 04/07/2017 04/11/2017 Inactive Prozac 20 mg capsule RxNorm: 781507 1 CAPSULE(S) PO DAILY 03/02/2017 05/26/2017 Inactive Prozac 20 mg capsule RxNorm: 944026 1 CAPSULE(S) PO DAILY 12/03/2016 03/01/2017 Inactive Transderm-Scop 1.5 mg transdermal patch (1 mg over 3 days) RxNorm: 222248 1 Patch TD q 3 days 09/24/2016 No Stop Date Active scopolamine 1.5 mg transdermal patch (1 mg over 3 days) RxNorm: 138708 1 TD q 3 days 09/23/2016 09/22/2016 Inactive scopolamine 1.5 mg transdermal patch (1 mg over 3 days) RxNorm: 093165 1 TD q 3 days as needed 09/23/2016 09/23/2016 Inactive Prozac 20 mg capsule RxNorm: 034851 1 Capsule(s) PO daily 09/08/2016 12/02/2016 Inactive Prozac 20 mg capsule RxNorm: 504481 1 Capsule(s) PO daily 08/11/2016 09/07/2016 Inactive Wellbutrin SR 150 mg tablet,sustained-release RxNorm: 470780 TAKE 1 TABLET BY MOUTH TWICE DAILY(DISCONTINUE 75MG) 07/24/2016 08/08/2016 Inactive Wellbutrin SR 150 mg tablet,sustained-release RxNorm: 497780 TAKE 1 TABLET BY MOUTH TWICE DAILY(DISCONTINUE 75MG) 06/25/2016 07/24/2016 Inactive Wellbutrin SR 150 mg tablet,sustained-release RxNorm: 225380 TAKE 1 TABLET BY MOUTH TWICE DAILY(DISCONTINUE 75MG) 05/22/2016 06/20/2016 Inactive Wellbutrin SR 150 mg tablet,sustained-release RxNorm: 110231 TAKE 1 TABLET BY MOUTH TWICE DAILY(DISCONTINUE 75MG) 04/24/2016 05/23/2016 Inactive Wellbutrin SR 150 mg tablet,sustained-release RxNorm: 041941 1 Tablet(s) PO BID 12/31/2015 04/23/2016 Inactive dc wellbutrin 75mg bid Wellbutrin SR 150 mg tablet,sustained-release RxNorm: 765717 1 Tablet(s) PO BID 12/31/2015 12/30/2015 Inactive dc wellbutrin 75mg bid Wellbutrin 75 mg tablet RxNorm: 334213 1 Tablet(s) PO BID 12/24/2015 12/30/2015 Inactive Wellbutrin 75 mg tablet RxNorm: 840417 1 Tablet(s) PO BID 11/27/2015 11/26/2015 Inactive Wellbutrin 75 mg tablet RxNorm: 827451 1 Tablet(s) PO BID 11/27/2015 12/23/2015 Inactive hydrochlorothiazide 25 mg tablet RxNorm: 935789 1 Tablet(s) PO daily No Start Date Active aspirin 81 mg tablet RxNorm: 287063 1 Tablet(s) PO daily No Start Date Active Multivitamin & Mineral Formula tablet RxNorm: 1 Tablet(s) PO daily No Start Date Active atenolol 25 mg tablet RxNorm: 806592 1 Tablet(s) PO daily No Start Date Active Lipitor 40 mg tablet RxNorm: 181759 1 Tablet(s) PO daily No Start Date Active Transderm-Scop 1.5 mg transdermal patch (1 mg over 3 days) RxNorm: 329206 1 Patch TD q 3 days No Start Date 09/23/2016 Inactive Lexapro 20 mg tablet RxNorm: 322879 1 Tablet(s) PO daily No Start Date 11/26/2015 Inactive Medication Administered No Medication Administered data Immunizations No Immunization data Assessments Condition Codes Effective Dates Encounter for screening mammogram for malignant neoplasm [...] 1: 132/80 Code: 8480-6 BMI: 27.8 Code: 56432-1 Heart Rate 1: 92 bpm Height: 5'5" SpO2: 99% Weight: 167 lbs 04/07/2017 Blood Pressure 1: 126/78 Code: 8480-6 Heart Rate 1: 79 bpm Height: 5'5" SpO2: 98% Temperature: 36.9 (C) / 98.4 (F) Weight: 09/08/2016 Blood Pressure 1: 111/78 Code: 8480-6 BMI: 26.3 Code: 31281-4 Heart Rate 1: 72 bpm Height: 5'5" SpO2: 96% Weight: 158 lbs 08/11/2016 Blood Pressure 1: 120/64 Code: 8480-6 BMI: 26.3 Code: 07903-4 Heart Rate 1: 78 bpm Height: 5'5" SpO2: 98% Weight: 158 lbs 11/23/2015 Blood Pressure 1: 110/82 Code: 8480-6 BMI: 26.6 Code: 76283-2 Heart Rate 1: 74 bpm Height: 5'5" [...] data Encounters Encounter Performer Location Codes Date 47539 EST. PATIENT, LEVEL III Diagnosis: Generalized anxiety disorder[ICD10: F41.1] Diagnosis: Major depressive disorder, single episode, moderate[ICD10: F32.1] [facility] CPT-4: 64033 09/23/2017 70258 EST. PATIENT, LEVEL III Diagnosis: Acute laryngopharyngitis[ICD10: J06.0] Diagnosis: Other allergic rhinitis[ICD10: J30.89] [facility] CPT- 4: 69381 04/07/2017 63081 EST. PATIENT, LEVEL IV Diagnosis: Generalized anxiety disorder[ICD10: F41.1] Diagnosis: Major depressive disorder, single episode, moderate[ICD10: F32.1] [facility] CPT-4: 62493 09/08/2016 89341 EST. PATIENT, LEVEL III Diagnosis: Generalized anxiety disorder[ICD10: F41.1] Diagnosis: Major depressive disorder, single episode, moderate[ICD10: F32.1] [facility] CPT-4: 83467 08/11/2016 (03304) PREV VISIT NEW AGE 40-64 Diagnosis: Essential (primary) hypertension[ICD10: I10] [facility] CPT-4: 68459 11/23/2015 Plan of Care Planned Activity Notes Codes Status Date Patient Education: Patient Medication Summary Completed 05/24/2018 Care Plan: SCREENINGMAMMOGRAPHYDIGITAL LOINC : 40033-7 Pending 05/24/2018 Patient Education: Patient Medication Summary Completed [...] allergy spray. 04/07/2017 Appointment: Toy[facility] ([facility] 04/07/2017 Patient Education: [...] current medications. 09/08/2016 Appointment: Toyin Turk [facility] ([facility] 09/08/2016 Patient Education: [...] medications. 08/11/2016 Appointment: [facility] [phone] [facility] ([facility]) [facility] 08/11/2016 Patient Education: [...] at home. 11/23/2015 Appointment: [facility] Din[facility] [phone] [facility] New Patient 11/23/2015 Patient Education: Patient [...]
--- OUTSIDE RECORDS SUMMARY | 2018-12-10 09:17 | XMS REPORT | CCD ---
Author Author Toyin Turk MD, [facility] Address [address] [place] [address] Phone Care Team Providers Care Claim Inspector Name Role Phone PP Unavailable CCM Unavailable Summary Purpose Interface Exchange Insurance Providers Payer name Policy type / Coverage type Covered constitution party ID Effective Begin Date Effective End Date Blue Cross Blue [facility] Blue Cross/Blue Shield [id number] Unknown Unknown Family history Sister Diagnosis Age [...] 2 adopted 11/23/[address]: 9248786 Quit less than 10 years ago 11/23/[address]: 856394050 Never drinks alcohol 11/23/2015 Allergies, Adverse Reactions, Alerts Substance Reaction Codes Entered Date Inactivated Date Status * NO KNOWN DRUG ALLERGIES Unknown 11/23/2015 No Inactive Date Active Past Medical History Illness Codes Condition Status Onset Date Resolved Date Encounter for screening for malignant neoplasm of [...] Effective Dates Condition Status Encounter for screening for malignant neoplasm of [...] Fill Instructions Prozac 20 mg capsule RxNorm: 890572 1 CAPSULE(S) PO DAILY 02/19/2018 11/15/2018 Active Prozac 20 mg capsule RxNorm: 882114 1 CAPSULE(S) PO DAILY 05/27/2017 02/18/2018 Inactive Zithromax Z-Raymond 250 mg tablet RxNorm: 545643 Tablet(s) PO UD 04/07/2017 05/26/2017 Inactive prednisone 20 mg tablet RxNorm: 594086 2 Tablet(s) PO daily 04/07/2017 04/11/2017 Inactive Prozac 20 mg capsule RxNorm: 764966 1 CAPSULE(S) PO DAILY 03/02/2017 05/26/2017 Inactive Prozac 20 mg capsule RxNorm: 283876 1 CAPSULE(S) PO DAILY 12/03/2016 03/01/2017 Inactive Transderm-Scop 1.5 mg transdermal patch (1 mg over 3 days) RxNorm: 943326 1 Patch TD q 3 days 09/24/2016 No Stop Date Active scopolamine 1.5 mg transdermal patch (1 mg over 3 days) RxNorm: 471513 1 TD q 3 days 09/23/2016 09/22/2016 Inactive scopolamine 1.5 mg transdermal patch (1 mg over 3 days) RxNorm: 041016 1 TD q 3 days as needed 09/23/2016 09/23/2016 Inactive Prozac 20 mg capsule RxNorm: 845205 1 Capsule(s) PO daily 09/08/2016 12/02/2016 Inactive Prozac 20 mg capsule RxNorm: 723098 1 Capsule(s) PO daily 08/11/2016 09/07/2016 Inactive Wellbutrin SR 150 mg tablet,sustained-release RxNorm: 408466 TAKE 1 TABLET BY MOUTH TWICE DAILY(DISCONTINUE 75MG) 07/24/2016 08/08/2016 Inactive Wellbutrin SR 150 mg tablet,sustained-release RxNorm: 984013 TAKE 1 TABLET BY MOUTH TWICE DAILY(DISCONTINUE 75MG) 06/25/2016 07/24/2016 Inactive Wellbutrin SR 150 mg tablet,sustained-release RxNorm: 472068 TAKE 1 TABLET BY MOUTH TWICE DAILY(DISCONTINUE 75MG) 05/22/2016 06/20/2016 Inactive Wellbutrin SR 150 mg tablet,sustained-release RxNorm: 126907 TAKE 1 TABLET BY MOUTH TWICE DAILY(DISCONTINUE 75MG) 04/24/2016 05/23/2016 Inactive Wellbutrin SR 150 mg tablet,sustained-release RxNorm: 820290 1 Tablet(s) PO BID 12/31/2015 04/23/2016 Inactive dc wellbutrin 75mg bid Wellbutrin SR 150 mg tablet,sustained-release RxNorm: 579678 1 Tablet(s) PO BID 12/31/2015 12/30/2015 Inactive dc wellbutrin 75mg bid Wellbutrin 75 mg tablet RxNorm: 780696 1 Tablet(s) PO BID 12/24/2015 12/30/2015 Inactive Wellbutrin 75 mg tablet RxNorm: 449935 1 Tablet(s) PO BID 11/27/2015 11/26/2015 Inactive Wellbutrin 75 mg tablet RxNorm: 936798 1 Tablet(s) PO BID 11/27/2015 12/23/2015 Inactive hydrochlorothiazide 25 mg tablet RxNorm: 064885 1 Tablet(s) PO daily No Start Date Active aspirin 81 mg tablet RxNorm: 722571 1 Tablet(s) PO daily No Start Date Active Multivitamin & Mineral Formula tablet RxNorm: 1 Tablet(s) PO daily No Start Date Active atenolol 25 mg tablet RxNorm: 612509 1 Tablet(s) PO daily No Start Date Active Lipitor 40 mg tablet RxNorm: 895708 1 Tablet(s) PO daily No Start Date Active Transderm-Scop 1.5 mg transdermal patch (1 mg over 3 days) RxNorm: 440174 1 Patch TD q 3 days No Start Date 09/23/2016 Inactive Lexapro 20 mg tablet RxNorm: 347501 1 Tablet(s) PO daily No Start Date 11/26/2015 Inactive Medication Administered No Medication Administered data Immunizations No Immunization data Assessments Condition Codes Effective Dates Encounter for screening for malignant neoplasm of [...] 1: 132/80 Code: 8480-6 BMI: 27.8 Code: 33274-5 Heart Rate 1: 92 bpm Height: 5'5" SpO2: 99% Weight: 167 lbs 04/07/2017 Blood Pressure 1: 126/78 Code: 8480-6 Heart Rate 1: 79 bpm Height: 5'5" SpO2: 98% Temperature: 36.9 (C) / 98.4 (F) Weight: 09/08/2016 Blood Pressure 1: 111/78 Code: 8480-6 BMI: 26.3 Code: 49389-9 Heart Rate 1: 72 bpm Height: 5'5" SpO2: 96% Weight: 158 lbs 08/11/2016 Blood Pressure 1: 120/64 Code: 8480-6 BMI: 26.3 Code: 88935-7 Heart Rate 1: 78 bpm Height: 5'5" SpO2: 98% Weight: 158 lbs 11/23/2015 Blood Pressure 1: 110/82 Code: 8480-6 BMI: 26.6 Code: 17332-5 Heart Rate 1: 74 bpm Height: 5'5" [...] data Encounters Encounter Performer Location Codes Date 33354 EST. PATIENT, LEVEL III Diagnosis: Generalized anxiety disorder[ICD10: F41.1] Diagnosis: Major depressive disorder, single episode, moderate[ICD10: F32.1] Toyin Brown MD, [facility] CPT-4: 19114 09/23/2017 82386 EST. PATIENT, LEVEL III Diagnosis: Acute laryngopharyngitis[ICD10: J06.0] Diagnosis: Other allergic rhinitis[ICD10: J30.89] Toyin Brown MD, [facility] CPT- 4: 47524 04/07/2017 47793 EST. PATIENT, LEVEL IV Diagnosis: Generalized anxiety disorder[ICD10: F41.1] Diagnosis: Major depressive disorder, single episode, moderate[ICD10: F32.1] Toyin Brown MD, [facility] CPT-4: 41299 09/08/2016 10290 EST. PATIENT, LEVEL III Diagnosis: Generalized anxiety disorder[ICD10: F41.1] Diagnosis: Major depressive disorder, single episode, moderate[ICD10: F32.1] Toyin Brown MD, [facility] CPT-4: 93558 08/11/2016 ([id number]) PREV VISIT NEW AGE 40-64 Diagnosis: Essential (primary) hypertension[ICD10: I10] Toyin Brown MD, [facility] CPT-4: 00653 11/23/2015 Plan of Care Planned Activity Notes Codes Status Date Patient Education: Patient Medication Summary Completed 05/21/2018 Care Plan: SCREENINGMAMMOGRAPHYDIGITAL LOINC : 97071-5 Pending 05/21/2018 Visit Plan: Chronic Depression and anxiety [...] spray. 04/07/2017 Appointment: Toyin Turk WPtel: [address] [facility] (30 min) Complex 04/07/2017 Patient Education: Patient [...] medications. 09/08/2016 App[facility]ment: [phone] [id number] ([facility] Complex 09/08/2016 Patient Education: Patient [...] medications. 08/11/2016 Appointment: Toy[facility] Turk [phone] [id number] (30 min) Complex 08/11/2016 Patient Education: Patient [...] blood pressure readings at home. 11/23/2015 Appointment: Bar Evi WPtel[id number] New Patient 11/23/2015 Patient Education: Patient Medication [...]
--- OUTSIDE RECORDS SUMMARY | 2018-12-10 09:18 | XMS REPORT | CCD ---
Author Author Toyin Turk MD, [facility] Address [address] [place] [address] Phone Care Team Providers Care Supervisor Forming And Tempering Name Role Phone PP Unavailable CCM Unavailable Summary Purpose Interface Exchange Insurance Providers Payer name Policy type / Coverage type Covered libertarian ID Effective Begin Date Effective End Date Blue Cross Blue [facility] Blue Cross/Blue [facility] [id number] Unknown Unknown Family history Sister Diagnosis Age At Onset Diabetes Unknown Hyperlipidemia Unknown Skin cancer Unknown Hypertension Unknown Mother Diagnosis Age At Onset Depression Unknown Hypertension Unknown Diabetes Unknown Arthritis Unknown Hyperlipidemia Unknown Father Diagnosis Age At Onset Skin cancer Unknown Colon cancer Unknown Diabetes Unknown Social History Social History Element Codes Description Effective Dates Marital status Unknown alissa 11/23/2015 Number of children Unknown 2 adopted 11/23/[address]: 9111480 Quit less than 10 years ago 11/23/[address]: 645020761 Never drinks alcohol 11/23/2015 Allergies, Adverse Reactions, Alerts Allergies, Adverse Reactions, Alerts data not found Past Medical History Illness Codes Condition Status Onset Date Resolved Date Acute laryngopharyngitis ICD-9: 465.0 ICD-10: J06.0 Active 04/07/2017 Unknown Other allergic rhinitis ICD-9: 477.8 ICD-10: J30.89 Active 04/07/2017 Unknown Generalized anxiety disorder ICD-9: 300.00 ICD-10: F41.1 Active 08/11/2016 Unknown Major depressive disorder, single episode, moderate ICD-9: 296.22 ICD-10: F32.1 Active 08/11/2016 Unknown Essential (primary) hypertension ICD-9: 401.9 ICD-10: I10 Active 11/22/2015 Unknown Problems Condition Codes Effective Dates Condition Status Acute laryngopharyngitis ICD-9: 465.0 ICD-10: J06.0 04/07/2017 Active Other allergic rhinitis ICD-9: 477.8 ICD-10: J30.89 04/07/2017 Active Generalized anxiety disorder ICD-9: 300.00 ICD-10: F41.1 08/11/2016 Active Major depressive disorder, single episode, moderate ICD-9: 296.22 ICD-10: F32.1 08/11/2016 Active Essential (primary) hypertension ICD-9: 401.9 ICD-10: I10 11/22/2015 Active Medications Medication Codes Instructions Start Date Stop Date Status Fill Instructions Prozac 20 mg capsule RxNorm: 073176 1 CAPSULE(S) PO DAILY 05/27/2017 02/20/2018 Active Zithromax Z-Raymond 250 mg tablet RxNorm: 234160 Tablet(s) PO UD 04/07/2017 05/26/2017 Inactive prednisone 20 mg tablet RxNorm: 806921 2 Tablet(s) PO daily 04/07/2017 04/11/2017 Inactive Prozac 20 mg capsule RxNorm: 474189 1 CAPSULE(S) PO DAILY 03/02/2017 05/26/2017 Inactive Prozac 20 mg capsule RxNorm: 048990 1 CAPSULE(S) PO DAILY 12/03/2016 03/01/2017 Inactive Transderm-Scop 1.5 mg transdermal patch (1 mg over 3 days) RxNorm: 318659 1 Patch TD q 3 days 09/24/2016 No Stop Date Active scopolamine 1.5 mg transdermal patch (1 mg over 3 days) RxNorm: 518488 1 TD q 3 days 09/23/2016 09/22/2016 Inactive scopolamine 1.5 mg transdermal patch (1 mg over 3 days) RxNorm: 076638 1 TD q 3 days as needed 09/23/2016 09/23/2016 Inactive Prozac 20 mg capsule RxNorm: 094496 1 Capsule(s) PO daily 09/08/2016 12/02/2016 Inactive Prozac 20 mg capsule RxNorm: 744446 1 Capsule(s) PO daily 08/11/2016 09/07/2016 Inactive Wellbutrin SR 150 mg tablet,sustained-release RxNorm: 701310 TAKE 1 TABLET BY MOUTH TWICE DAILY(DISCONTINUE 75MG) 07/24/2016 08/08/2016 Inactive Wellbutrin SR 150 mg tablet,sustained-release RxNorm: 787074 TAKE 1 TABLET BY MOUTH TWICE DAILY(DISCONTINUE 75MG) 06/25/2016 07/24/2016 Inactive Wellbutrin SR 150 mg tablet,sustained-release RxNorm: 645014 TAKE 1 TABLET BY MOUTH TWICE DAILY(DISCONTINUE 75MG) 05/22/2016 06/20/2016 Inactive Wellbutrin SR 150 mg tablet,sustained-release RxNorm: 494126 TAKE 1 TABLET BY MOUTH TWICE DAILY(DISCONTINUE 75MG) 04/24/2016 05/23/2016 Inactive Wellbutrin SR 150 mg tablet,sustained-release RxNorm: 907224 1 Tablet(s) PO BID 12/31/2015 04/23/2016 Inactive dc wellbutrin 75mg bid Wellbutrin SR 150 mg tablet,sustained-release RxNorm: 974451 1 Tablet(s) PO BID 12/31/2015 12/30/2015 Inactive dc wellbutrin 75mg bid Wellbutrin 75 mg tablet RxNorm: 534626 1 Tablet(s) PO BID 12/24/2015 12/30/2015 Inactive Wellbutrin 75 mg tablet RxNorm: 984748 1 Tablet(s) PO BID 11/27/2015 11/26/2015 Inactive Wellbutrin 75 mg tablet RxNorm: 808758 1 Tablet(s) PO BID 11/27/2015 12/23/2015 Inactive hydrochlorothiazide 25 mg tablet RxNorm: 673554 1 Tablet(s) PO daily No Start Date Active aspirin 81 mg tablet RxNorm: 251924 1 Tablet(s) PO daily No Start Date Active Multivitamin & Mineral Formula tablet RxNorm: 1 Tablet(s) PO daily No Start Date Active atenolol 25 mg tablet RxNorm: 893799 1 Tablet(s) PO daily No Start Date Active Lipitor 40 mg tablet RxNorm: 467083 1 Tablet(s) PO daily No Start Date Active Transderm-Scop 1.5 mg transdermal patch (1 mg over 3 days) RxNorm: 962706 1 Patch TD q 3 days No Start Date 09/23/2016 Inactive Lexapro 20 mg tablet RxNorm: 371283 1 Tablet(s) PO daily No Start Date 11/26/2015 Inactive Medication Administered No Medication Administered data Immunizations No Immunization data Assessments Condition Codes Effective Dates Other allergic rhinitis ICD-10: J30.89 ICD-9: 477.8 04/07/2017 Acute laryngopharyngitis ICD-10: J06.0 ICD-9: 465.0 04/07/2017 Generalized anxiety disorder ICD-10: F41.1 ICD-9: 300.00 09/08/2016 Major depressive disorder, single episode, moderate ICD-10: F32.1 ICD-9: 296.22 09/08/2016 Essential (primary) hypertension ICD-10: I10 ICD-9: 401.9 11/23/2015 Reason For Visit Reason For Visit Effective Dates Notes chest congestion 04/07/2017 medication follow up 09/08/2016 medication follow up 08/11/2016 hypertension 11/23/2015 Results No Results data Review of Systems System Result Effective Dates Constitutional recent illness 04/07/2017 Constitutional No chills [...] Result Effective Dates Notes Full Exam - ENT Constitutional general appearance [...] No Procedures data Vital Signs Date Vital 04/07/2017 Blood Pressure 1: 126/78 Code: 8480-6 Heart Rate 1: 79 bpm Height: 5'5" SpO2: 98% Temperature: 36.9 (C) / 98.4 (F) Weight: 09/08/2016 Blood Pressure 1: 111/78 Code: 8480-6 BMI: 26.3 Code: 65055-4 Heart Rate 1: 72 bpm Height: 5'5" SpO2: 96% Weight: 158 lbs 08/11/2016 Blood Pressure 1: 120/64 Code: 8480-6 BMI: 26.3 Code: 86413-7 Heart Rate 1: 78 bpm Height: 5'5" SpO2: 98% Weight: 158 lbs 11/23/2015 Blood Pressure 1: 110/82 Code: 8480-6 BMI: 26.6 Code: 61740-9 Heart Rate 1: 74 bpm Height: 5'5" SpO2: 97% Weight: 160 lbs Functional Status No Functional Status data History of Present Illness Symptom Name Status Result Effective Date Notes chest congestion Quality constant 04/07/2017 None chest [...] data Encounters Encounter Performer Location Codes Date EST. PATIENT, LEVEL III Diagnosis: Acute laryngopharyngitis[ICD10: J06.0] Diagnosis: Other allergic rhinitis[ICD10: J30.89] [facility] CPT- [facility]: 21470 04/07/2017 08916 EST. PATIENT, LEVEL IV Diagnosis: Generalized anxiety disorder[ICD10: F41.1] Diagnosis: Major depressive disorder, single episode, moderate[ICD10: F32.1] [facility] CPT-4: 21123 09/08/2016 84965 EST. PATIENT, LEVEL III Diagnosis: Generalized anxiety disorder[ICD10: F41.1] Diagnosis: Major depressive disorder, single episode, moderate[ICD10: F32.1] [facility] CPT-4: 82957 08/11/2016 ([id number]) PREV VISIT NEW AGE 40-64 Diagnosis: Essential (primary) hypertension[ICD10: I10] [facility] CPT-4: 71072 11/23/2015 Plan of Care Planned Activity Notes Codes Status Date Appointment: Toy[id number] [facility] 04/07/2017 Patient Education: Patient Medication Summary Completed 04/07/2017 Appointment: Toyin Turk [facility]Ptel[facility] ([facility] 09/08/2016 Patient Education: Patient Medication Summary Completed 09/08/2016 Patient Education: Obesity Completed 09/08/2016 Appointment: Toyin Turk WPtel: [address] [place], [place] [id number] (30 min) Complex 08/11/2016 Patient Education: Patient Medication Summary Completed 08/11/2016 Patient Education: Obesity Completed 08/11/2016 Appointment: Evi Dinero [facility]Ptel[phone] New Patient 11/23/2015 Patient Education: Patient Medication Summary Completed 11/23/2015 Patient Education: Obesity Completed 11/23/2015 Patient Education: Hypertension Completed 11/23/2015 Instructions No Instructions
--- OUTSIDE RECORDS SUMMARY | 2018-12-10 09:18 | XMS REPORT | Continuity of Care Document ---
Author Organization Unknown Address Unknown Phone Unavailable Allergies Active Description Code Type Severity Reaction Onset Reported/Identified Relationship to Patient Clinical Status Yes NKANo Known Allergies NKA Miscellaneous Allergy Unknown N/A 10/16/2006 Medications There is no data. Problems Date Dx Coded Attending Type Code Diagnosis Diagnosed By 10/10/2009 Ot 272.4 10/10/2009 Ot 305.1 10/10/2009 Ot 401.9 10/10/2009 Ot 412 10/10/2009 Ot 414.01 10/10/2009 Ot 996.72 10/10/2009 Ot V45.82 05/10/2010 Ot 530.11 05/10/2010 Ot 535.40 04/10/2011 Ot 272.4 HYPERLIPIDEMIA NEC/NOS 04/10/2011 Ot 401.9 HYPERTENSION NOS 04/10/2011 Ot 412 OLD MYOCARDIAL INFARCT 04/10/2011 Ot 414.01 CORONARY ATHEROSCLEROSIS OF [place] CORON 04/10/2011 Ot 996.72 OTH COMPLICATIONS DUE TO OT CARD DEVICE 04/10/2011 Ot V45.82 PERCUTANEOUS TRANSLUM CORON ANGIOPLASTY 04/10/2011 Ot V58.63 LONG-TERM(CURRENT)USE OF ANTIPLATELET/AN 04/10/2011 Ot V58.66 LONG-TERM (CURRENT) USE OF ASPIRIN 04/10/2011 Ot V58.69 OTH MED,LT,CURRENT USE 04/03/2014 BIPIN PHD, KINJAL Muniz V71.09 OBSERVATION OF OTHER SUSPECTED MENTAL CONDITION 04/10/2014 MINO SANTIAGO, ANNA Evans Ot V76.12 03/16/2015 Ot 401.9 03/16/2015 Ot 412 03/16/2015 Ot 414.01 03/16/2015 Ot V72.63 03/16/2015 Ot V74.8 03/16/2015 Ot V76.12 03/16/2015 Ot 787.02 03/16/2015 Ot 789.06 03/16/2015 Ot 789.00 03/16/2015 Ot V76.12 03/16/2015 Ot 397.0 03/16/2015 Ot 401.9 03/16/2015 Ot 414.00 03/16/2015 Ot 416.8 03/16/2015 Ot 424.0 03/16/2015 Ot 401.9 03/16/2015 Ot 414.01 03/16/2015 Ot V76.12 03/16/2015 MINO SANTIAGO, ANNA Evans Ot V76.12 03/16/2015 PAM SANTIAGO, LLU J Ot 272.4 03/16/2015 PAM SANTIAGO, BASHAR J Ot 397.0 03/16/2015 PAM SANTIAGO, BASHAR J Ot 401.9 03/16/2015 PAM SANTIAGO, BASHAR J Ot 414.00 03/16/2015 PAM SANTIAGO, BASHAR J Ot 424.0 03/16/2015 PAM SANTIAGO, BASHAR J Ot 272.4 03/16/2015 PAM SANTIAGO, BASHAR J Ot 278.00 03/16/2015 PAM SANTIAGO, BASHAR J Ot 401.9 03/16/2015 PAM SANTIAGO, LUL J Ot 414.00 03/16/2015 MINO SANTIAGO, ANNA Evans Ot V76.12 03/22/2015 CASTILLO-BIPIN PA, NIKKI K Ot E78.2 03/22/2015 CASTILLO-BIPIN PA, NIKKI K Ot I10 03/22/2015 CASTILLO-BIPIN PA, NIKKI K Ot I25.10 03/22/2015 CASTILLO-BIPIN PA, NIKKI K Ot Z87.891 04/04/2015 CASTILLO-BIPIN PA, NIKKI K Ot E78.2 04/04/2015 CASTILLO-BIPIN PA, NIKKI K Ot I10 04/04/2015 CASTILLO-BIPIN PA, NIKKI K Ot I25.10 04/04/2015 CASTILLO-BIPIN PA, NIKKI K Ot Z87.891 04/06/2015 CASTILLO-BIPIN PA, NIKKI K Ot E78.2 04/06/2015 CASTILLO-BIPIN PA, NIKKI K Ot I10 04/06/2015 CASTILLO-BIPIN PA, NIKKI K Ot I25.10 04/06/2015 CASTILLO-BIPIN PA, NIKKI K Ot Z87.891 12/17/2015 MINO SANTIAGO, ANNA Evans Ot Z12.31 ENCNTR SCREEN MAMMOGRAM FOR MALIGNANT NE 12/25/2015 Ot V76.12 OTH SCREEN MAMMO- MALIGN NEOPLASM OF [place] 12/25/2015 Ot 397.0 TRICUSPID VALVE DISEASE 12/25/2015 Ot 401.9 HYPERTENSION NOS 12/25/2015 Ot 414.00 CORON ATHEROSCLER NOS TYPE VESSEL, NATIV 12/25/2015 Ot 416.8 CHR PULMON HEART DIS NEC 12/25/2015 Ot 424.0 MITRAL VALVE DISORDER 12/25/2015 Ot 401.9 HYPERTENSION NOS 12/25/2015 Ot 414.01 CORONARY ATHEROSCLEROSIS OF [place] CORON 12/25/2015 Ot V76.12 OTH SCREEN MAMMO- MALIGN NEOPLASM OF [place] 12/25/2015 ANNA HERZOG MD, Ot V76.12 OTH SCREEN MAMMO-MALIGN NEOPLASM OF [place] 12/25/2015 LUL OROZCO MD Ot 272.4 HYPERLIPIDEMIA NEC/NOS 12/25/2015 LUL OROZCO MD Ot 397.0 TRICUSPID VALVE DISEASE 12/25/2015 LUL OROZCO MD J Ot 401.9 HYPERTENSION NOS 12/25/2015 PAM SANTIAGO, LUL J Ot 414.00 CORON ATHEROSCLER NOS TYPE VESSEL, NATIV 12/25/2015 LUL OROZCO MD J Ot 424.0 MITRAL VALVE DISORDER 12/25/2015 LUL OROZCO MD Ot 272.4 HYPERLIPIDEMIA NEC/NOS 12/25/2015 LUL OROZCO MD J Ot 278.00 OBESITY, NOS 12/25/2015 PAM SANTIAGO, LUL J Ot 401.9 HYPERTENSION NOS 12/25/2015 PAM SANTIAGO, LUL J Ot 414.00 CORON ATHEROSCLER NOS TYPE VESSEL, NATIV 12/25/2015 ANNA HERZOG MD, Ot V76.12 OTH SCREEN MAMMO-MALIGN NEOPLASM OF [place] 12/25/2015 NIKKI TERRY Ot E78.2 MIXED HYPERLIPIDEMIA 12/25/2015 NIKKI TERRY Ot I10 ESSENTIAL (PRIMARY) HYPERTENSION 12/25/2015 NIKKI TERRY Ot I25.10 ATHSCL HEART DISEASE OF [place] CORONARY 12/25/2015 NIKKI TERRY Ot Z87.891 PERSONAL HISTORY OF NICOTINE DEPENDENCE 12/25/2015 NIKKI TERRY Ot E78.2 MIXED HYPERLIPIDEMIA 12/25/2015 NIKKI TERRY Ot I10 ESSENTIAL (PRIMARY) HYPERTENSION 12/25/2015 NIKKI TERRY Ot I25.10 ATHSCL HEART DISEASE OF [place] CORONARY 12/25/2015 NIKKI TERRY Ot Z87.891 PERSONAL HISTORY OF NICOTINE DEPENDENCE 12/25/2015 ANNA HERZOG MD Ot Z12.31 ENCNTR SCREEN MAMMOGRAM FOR MALIGNANT NE 12/28/2015 ANNA HERZOG MD Ot Z12.31 ENCNTR SCREEN MAMMOGRAM FOR MALIGNANT NE 02/12/2016 Ot V76.12 OTH SCREEN MAMMO- MALIGN NEOPLASM OF [place] 02/12/2016 Ot 397.0 TRICUSPID VALVE DISEASE 02/12/2016 Ot 401.9 HYPERTENSION NOS 02/12/2016 Ot 414.00 CORON ATHEROSCLER NOS TYPE VESSEL, NATIV 02/12/2016 Ot 416.8 CHR PULMON HEART DIS NEC 02/12/2016 Ot 424.0 MITRAL VALVE DISORDER 02/12/2016 Ot 401.9 HYPERTENSION NOS 02/12/2016 Ot 414.01 CORONARY ATHEROSCLEROSIS OF [place] CORON 02/12/2016 Ot V76.12 OTH SCREEN MAMMO- MALIGN NEOPLASM OF [place] 02/12/2016 ANNA HERZOG MD Ot V76.12 OTH SCREEN MAMMO-MALIGN NEOPLASM OF [place] 02/12/2016 PAM SANTIAGO, LUL Painting Ot 272.4 HYPERLIPIDEMIA NEC/NOS 02/12/2016 LUL OROZCO MD Ot 397.0 TRICUSPID VALVE DISEASE 02/12/2016 LUL OROZCO MD Ot 401.9 HYPERTENSION NOS 02/12/2016 LUL OROZCO MD Ot 414.00 CORON ATHEROSCLER NOS TYPE VESSEL, NATIV 02/12/2016 LUL OROZCO MD Ot 424.0 MITRAL VALVE DISORDER 02/12/2016 LUL OROZCO MD Ot 272.4 HYPERLIPIDEMIA NEC/NOS 02/12/2016 LUL OROZCO MD Ot 278.00 OBESITY, NOS 02/12/2016 LUL OROZCO MD Ot 401.9 HYPERTENSION NOS 02/12/2016 LUL OROZCO MD Ot 414.00 CORON ATHEROSCLER NOS TYPE VESSEL, NATIV 02/12/2016 ANNA HERZOG MD Ot V76.12 OTH SCREEN MAMMO-MALIGN NEOPLASM OF [place] 02/12/2016 MT HAN NIKKI K Ot E78.2 MIXED HYPERLIPIDEMIA 02/12/2016 MT HAN NIKKI K Ot I10 ESSENTIAL (PRIMARY) HYPERTENSION 02/12/2016 MT HAN NIKKI K Ot I25.10 ATHSCL HEART DISEASE OF [place] CORONARY 02/12/2016 MT HAN NIKKI K Ot Z87.891 PERSONAL HISTORY OF NICOTINE DEPENDENCE 02/12/2016 MT HAN NIKKI K Ot E78.2 MIXED HYPERLIPIDEMIA 02/12/2016 MT HAN NIKKI K Ot I10 ESSENTIAL (PRIMARY) HYPERTENSION 02/12/2016 MT HAN NIKKI K Ot I25.10 ATHSCL HEART DISEASE OF [place] CORONARY 02/12/2016 MT HAN NIKKI K Ot Z87.891 PERSONAL HISTORY OF NICOTINE DEPENDENCE 02/12/2016 ANNA HERZOG MD Ot Z12.31 ENCNTR SCREEN MAMMOGRAM FOR MALIGNANT NE 02/13/2016 Ot V76.12 OTH SCREEN MAMMO- MALIGN NEOPLASM OF [place] 02/13/2016 Ot 397.0 TRICUSPID VALVE DISEASE 02/13/2016 Ot 401.9 HYPERTENSION NOS 02/13/2016 Ot 414.00 CORON ATHEROSCLER NOS TYPE VESSEL, NATIV 02/13/2016 Ot 416.8 CHR PULMON HEART DIS NEC 02/13/2016 Ot 424.0 MITRAL VALVE DISORDER 02/13/2016 Ot 401.9 HYPERTENSION NOS 02/13/2016 Ot 414.01 CORONARY ATHEROSCLEROSIS OF [place] CORON 02/13/2016 Ot V76.12 OTH SCREEN MAMMO- MALIGN NEOPLASM OF [place] 02/13/2016 ANNA HERZOG MD, Ot V76.12 OTH SCREEN MAMMO-MALIGN NEOPLASM OF [place] 02/13/2016 LUL OROZCO MD Ot 272.4 HYPERLIPIDEMIA NEC/NOS 02/13/2016 LUL OROZCO MD Ot 397.0 TRICUSPID VALVE DISEASE 02/13/2016 LUL OROZCO MD Ot 401.9 HYPERTENSION NOS 02/13/2016 LUL OROZCO MD Ot 414.00 CORON ATHEROSCLER NOS TYPE VESSEL, NATIV 02/13/2016 LUL OROZCO MD Ot 424.0 MITRAL VALVE DISORDER 02/13/2016 LUL OROZCO MD Ot 272.4 HYPERLIPIDEMIA NEC/NOS 02/13/2016 LUL OROZCO MD Ot 278.00 OBESITY, NOS 02/13/2016 LUL OROZCO MD Ot 401.9 HYPERTENSION NOS 02/13/2016 LUL OROZCO MD Ot 414.00 CORON ATHEROSCLER NOS TYPE VESSEL, NATIV 02/13/2016 ANNA HERZOG MD, Ot V76.12 OTH SCREEN MAMMO-MALIGN NEOPLASM OF [place] 02/13/2016 NIKKI TERRY Ot E78.2 MIXED HYPERLIPIDEMIA 02/13/2016 NIKKI TERRY Ot I10 ESSENTIAL (PRIMARY) HYPERTENSION 02/13/2016 NIKKI TERRY Ot I25.10 ATHSCL HEART DISEASE OF [place] CORONARY 02/13/2016 NIKKI TERRY Ot Z87.891 PERSONAL HISTORY OF NICOTINE DEPENDENCE 02/13/2016 NIKKI TERRY Ot E78.2 MIXED HYPERLIPIDEMIA 02/13/2016 NIKKI TERRY Ot I10 ESSENTIAL (PRIMARY) HYPERTENSION 02/13/2016 NIKKI TERRY Ot I25.10 ATHSCL HEART DISEASE OF [place] CORONARY 02/13/2016 NIKKI TERRY Ot Z87.891 PERSONAL HISTORY OF NICOTINE DEPENDENCE 02/13/2016 ANNA HERZOG MD Ot Z12.31 ENCNTR SCREEN MAMMOGRAM FOR MALIGNANT NE 02/03/2017 Ot 401.9 HYPERTENSION NOS 02/03/2017 Ot 414.01 CORONARY ATHEROSCLEROSIS OF [place] CORON 02/03/2017 Ot V76.12 OTH SCREEN MAMMO- MALIGN NEOPLASM OF [place] 02/03/2017 ANNA HERZOG MD Ot V76.12 OTH SCREEN MAMMO-MALIGN NEOPLASM OF [place] 02/03/2017 LUL OROZCO MD Ot 272.4 HYPERLIPIDEMIA NEC/NOS 02/03/2017 LUL OROZCO MD Ot 397.0 TRICUSPID VALVE DISEASE 02/03/2017 LUL OROZCO MD Ot 401.9 HYPERTENSION NOS 02/03/2017 LUL OROZCO MD Ot 414.00 CORON ATHEROSCLER NOS TYPE VESSEL, NATIV 02/03/2017 LUL OROZCO MD Ot 424.0 MITRAL VALVE DISORDER 02/03/2017 LUL OROZCO MD Ot 272.4 HYPERLIPIDEMIA NEC/NOS 02/03/2017 LUL OROZCO MD Ot 278.00 OBESITY, NOS 02/03/2017 LUL OROZCO MD Ot 401.9 HYPERTENSION NOS 02/03/2017 LUL OROZCO MD Ot 414.00 CORON ATHEROSCLER NOS TYPE VESSEL, NATIV 02/03/2017 ANNA HERZOG MD, Ot V76.12 OTH SCREEN MAMMO-MALIGN NEOPLASM OF [place] 02/03/2017 NIKKI TERRY Ot E78.2 MIXED HYPERLIPIDEMIA 02/03/2017 NIKKI TERRY Ot I10 ESSENTIAL (PRIMARY) HYPERTENSION 02/03/2017 NIKKI TERRY Ot I25.10 ATHSCL HEART DISEASE OF [place] CORONARY 02/03/2017 NIKKI TERRY Ot Z87.891 PERSONAL HISTORY OF NICOTINE DEPENDENCE 02/03/2017 NIKKI TERRY Ot E78.2 MIXED HYPERLIPIDEMIA 02/03/2017 NIKKI TERRY Ot I10 ESSENTIAL (PRIMARY) HYPERTENSION 02/03/2017 NIKKI TERRY Ot I25.10 ATHSCL HEART DISEASE OF [place] CORONARY 02/03/2017 NIKKI TERRY Ot Z87.891 PERSONAL HISTORY OF NICOTINE DEPENDENCE 02/03/2017 ANNA HERZOG MD Ot Z12.31 ENCNTR SCREEN MAMMOGRAM FOR MALIGNANT NE 03/03/2017 ANNA HERZOG MD, Ot Z12.31 ENCNTR SCREEN MAMMOGRAM FOR MALIGNANT NE 03/12/2017 ANNA HERZOG MD, Ot Z12.31 ENCNTR SCREEN MAMMOGRAM FOR MALIGNANT NE 03/24/2017 ANNA HERZOG MD, Ot R92.8 OTH ABN AND INCONCLUSIVE FINDINGS ON DX 04/02/2017 ANNA HERZOG MD, Ot R92.8 OTH ABN AND INCONCLUSIVE FINDINGS ON DX 04/17/2017 NIKKI TERRY Ot E78.2 MIXED HYPERLIPIDEMIA 04/17/2017 MT HAN, NIKKI K Ot I10 ESSENTIAL (PRIMARY) HYPERTENSION 04/17/2017 MT HAN, NIKKI K Ot I25.10 ATHSCL HEART DISEASE OF [place] CORONARY 04/17/2017 MT HAN, NIKKI K Ot 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 05/08/2017 MT HAN NIKKI K Ot E78.2 MIXED HYPERLIPIDEMIA 05/08/2017 MT HAN, NIKKI K Ot I10 ESSENTIAL (PRIMARY) HYPERTENSION 05/08/2017 MT HAN, NIKKI K Ot I25.10 ATHSCL HEART DISEASE OF [place] CORONARY 05/08/2017 MT HAN NIKKI K Ot 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 05/17/2018 ANNA HERZOG MD, Ot Z12.31 ENCNTR SCREEN MAMMOGRAM FOR MALIGNANT NE 05/20/2018 ANNA HERZOG MD, Ot Z12.31 ENCNTR SCREEN MAMMOGRAM FOR MALIGNANT NE 05/24/2018 ANNA HERZOG MD, Ot R92.0 MAMMOGRAPHIC MICROCALCIFICATION FOUND ON 05/26/2018 ANNA HERZOG MD, Ot Z12.31 ENCNTR SCREEN MAMMOGRAM FOR MALIGNANT NE 06/02/2018 ANNA HERZOG MD, Ot R92.0 MAMMOGRAPHIC MICROCALCIFICATION FOUND ON 06/08/2018 ANNA HERZOG MD, Ot N60.92 UNSPECIFIED BENIGN MAMMARY DYSPLASIA OF 06/08/2018 ANNA HERZOG MD, Ot R92.0 MAMMOGRAPHIC MICROCALCIFICATION FOUND ON 06/14/2018 CAPRICE MENDOZA MD, Ot L76.32 POSTPROC HEMATOMA OF SKIN, SUBCU FOLLOWI 06/14/2018 CAPRICE MENDOZA MD, Ot N60.92 UNSPECIFIED BENIGN MAMMARY DYSPLASIA OF 06/14/2018 CAPRICE MENDOZA MD, Ot Z98.890 OTHER SPECIFIED POSTPROCEDURAL STATES 06/16/2018 CAPRICE MENDOZA MD, Ot Z01.818 ENCOUNTER FOR OTHER PREPROCEDURAL EXAMIN 06/17/2018 CAPRICE MENDOZA MD, Ot E78.00 PURE HYPERCHOLESTEROLEMIA, UNSPECIFIED 06/17/2018 CAPRICE MENDOZA MD Ot I10 ESSENTIAL (PRIMARY) HYPERTENSION 06/17/2018 CAPRICE MENDOZA MD, Ot I25.10 ATHSCL HEART DISEASE OF [place] CORONARY 06/17/2018 CAPRICE MNEDOZA MD, Ot I25.2 OLD MYOCARDIAL INFARCTION 06/17/2018 CAPRICE MENDOZA MD, Ot K21.9 GASTRO-ESOPHAGEAL REFLUX DISEASE WITHOUT 06/17/2018 CAPRICE MENDOZA MD, Ot N60.32 FIBROSCLEROSIS OF LEFT BREAST 06/17/2018 CAPRICE MENDOZA MD, Ot N60.92 UNSPECIFIED BENIGN MAMMARY DYSPLASIA OF 06/17/2018 CAPRICE MENDOZA MD, Ot N64.1 FAT NECROSIS OF BREAST 06/17/2018 CAPRICE MENDOZA MD, Ot R92.0 MAMMOGRAPHIC MICROCALCIFICATION FOUND ON 06/17/2018 CAPRICE MENDOZA MD, Ot Z79.82 LONG-TERM (CURRENT) USE OF ASPIRIN 06/17/2018 CAPRICE MENDOZA MD, Ot Z79.899 OTHER LONG-TERM (CURRENT) DRUG THERAPY 06/17/2018 CAPRICE MENDOZA MD, Ot Z87.891 PERSONAL HISTORY OF NICOTINE DEPENDENCE 06/17/2018 CAPRICE MENDOZA MD, Ot Z95.5 PRESENCE OF CORONARY ANGIOPLASTY IMPLANT 06/22/2018 CAPRICE MENDOZA MD Ot E78.00 PURE HYPERCHOLESTEROLEMIA, UNSPECIFIED 06/22/2018 CAPRICE MENDOZA MD Ot I10 ESSENTIAL (PRIMARY) HYPERTENSION 06/22/2018 CAPRICE MENDOZA MD, Ot I25.10 ATHSCL HEART DISEASE OF [place] CORONARY 06/22/2018 CAPRICE MENDOZA MD, Ot I25.2 OLD MYOCARDIAL INFARCTION 06/22/2018 CAPRICE MENDOZA MD, Ot K21.9 GASTRO-ESOPHAGEAL REFLUX DISEASE WITHOUT 06/22/2018 CAPRICE MENDOZA MD, Ot N60.32 FIBROSCLEROSIS OF LEFT BREAST 06/22/2018 CAPRICE MENDOZA MD, Ot N60.92 UNSPECIFIED BENIGN MAMMARY DYSPLASIA OF 06/22/2018 CAPRICE MENDOZA MD, Ot N64.1 FAT NECROSIS OF BREAST 06/22/2018 CAPRICE MENDOZA MD Ot Z79.82 CAP SIZER (CURRENT) USE OF ASPIRIN 06/22/2018 CAPRICE MENDOZA MD Ot Z79.899 OTHER [place] (CURRENT) DRUG THERAPY 06/22/2018 CAPRICE MENDOZA MD, Ot Z87.891 PERSONAL HISTORY OF NICOTINE DEPENDENCE 06/22/2018 CAPRICE MENDOZA MD, Ot Z95.5 PRESENCE OF CORONARY ANGIOPLASTY IMPLANT 06/24/2018 CAPRICE MENDOZA MD, Ot E78.00 PURE HYPERCHOLESTEROLEMIA, UNSPECIFIED 06/24/2018 CAPRICE MENDOZA MD, Ot I10 ESSENTIAL (PRIMARY) HYPERTENSION 06/24/2018 CPARICE MENDOZA MD, Ot I25.10 ATHSCL HEART DISEASE OF [place] CORONARY 06/24/2018 CAPRICE MENDOZA MD, Ot I25.2 OLD MYOCARDIAL INFARCTION 06/24/2018 CAPRICE MENDOZA MD, Ot K21.9 GASTRO-ESOPHAGEAL REFLUX DISEASE WITHOUT 06/24/2018 CAPRICE MENDOZA MD, Ot N60.32 FIBROSCLEROSIS OF LEFT BREAST 06/24/2018 CAPRICE MENDOZA MD, Ot N60.92 UNSPECIFIED BENIGN MAMMARY DYSPLASIA OF 06/24/2018 CAPRICE MENDOZA MD, Ot N64.1 FAT NECROSIS OF BREAST 06/24/2018 CAPRICE MENDOZA MD, Ot Z79.82 LONG-TERM (CURRENT) USE OF ASPIRIN 06/24/2018 CAPRICE MENDOZA MD, Ot Z79.899 OTHER LONG-TERM (CURRENT) DRUG THERAPY 06/24/2018 CAPRICE MENDOZA MD, Ot Z87.891 PERSONAL HISTORY OF NICOTINE DEPENDENCE 06/24/2018 CAPRICE MENDOZA MD, Ot Z95.5 PRESENCE OF CORONARY ANGIOPLASTY IMPLANT 06/25/2018 ANNA HERZOG MD, Ot N60.92 UNSPECIFIED BENIGN MAMMARY DYSPLASIA OF 06/25/2018 ANNA HERZOG MD, Ot R92.0 MAMMOGRAPHIC MICROCALCIFICATION FOUND ON Procedures Code Description [place] [address] PSYCH DIAGNOSTIC EVALUATION 04/03/2014 Results Test Result Range Methicillin resistant Staphylococcus aureus (MRSA) screening culture - 06/17/18 10:33 Methicillin resistant Staphylococcus aureus (MRSA) screening culture NEG NRG Automated blood complete blood count (hemogram) panel - 12/10/18 07:10 Blood leukocytes automated count (number/volume) 7.8 10*3/uL 4.3-11.0 Blood erythrocytes automated count (number/volume) 4.72 10*6/uL 4.35-5.85 Venous blood hemoglobin measurement (mass/volume) 14.1 g/dL 11.5-16.0 Blood hematocrit (volume fraction) 42 % 35-52 Automated erythrocyte mean corpuscular volume 89 [foz_us] 80-99 Automated erythrocyte mean corpuscular hemoglobin (mass per erythrocyte) 30 pg 25-34 Automated erythrocyte mean corpuscular hemoglobin concentration measurement (mass/volume) 34 g/dL 32-36 Automated erythrocyte distribution width ratio 13.1 % 10.0- 14.5 Automated blood platelet count (count/volume) 280 10*3/uL 130-400 Automated blood platelet mean volume measurement 10.2 [foz_us] 7.4-10.4 Complete urinalysis with reflex to culture - 12/10/18 07:10 Urine color determination YELLOW NRG Urine clarity determination CLEAR NRG Urine pH measurement by test strip 8 5-9 Specific gravity of urine by test strip 1.010 1.016-1.022 Urine protein assay by test strip, semi-quantitative 2+ NEGATIVE Urine glucose detection by automated test strip NEGATIVE NEGATIVE Erythrocytes detection in urine sediment by light microscopy NEGATIVE NEGATIVE Urine ketones detection by automated test strip NEGATIVE NEGATIVE Urine nitrite detection by test strip NEGATIVE NEGATIVE Urine total bilirubin detection by test strip NEGATIVE NEGATIVE Urine urobilinogen measurement by automated test strip (mass/volume) 1 mg/dL NORMAL Urine leukocyte esterase detection by dipstick 3+ NEGATIVE Automated urine sediment erythrocyte count by microscopy (number/high power field) NONE NRG Automated urine sediment leukocyte count by microscopy (number/high power field) [HPF] NRG Bacteria detection in urine sediment by light microscopy NEGATIVE NRG Squamous epithelial cells detection in urine sediment by light microscopy 2-5 NRG Crystals detection in urine sediment by light microscopy NONE NRG Casts detection in urine sediment by light microscopy NONE NRG Mucus detection in urine sediment by light microscopy NEGATIVE NRG Complete urinalysis with reflex to culture NO NRG PT panel in platelet poor plasma by coagulation assay - 12/10/18 07:10 Prothrombin time (PT) in platelet poor plasma by coagulation assay 12.7 s 12.2-14.7 INR in platelet poor plasma or blood by coagulation assay 0.9 0.8-1.4 Activated partial thromboplastin time (aPTT) in platelet poor plasma bycoagulation assay - 12/10/18 07:10 Activated partial thromboplastin time (aPTT) in platelet poor plasma bycoagulation assay 29 s 24-35 Comprehensive metabolic panel - 08/09/19 07:10 Serum or plasma sodium measurement (moles/volume) 144 mmol/L 135-145 Serum or plasma potassium measurement (moles/volume) 3.6 mmol/L 3.6-5.0 Serum or plasma chloride measurement (moles/volume) 104 mmol/L 98-107 Carbon dioxide 31 mmol/L 21-32 Serum or plasma anion gap determination (moles/volume) 9 mmol/L 5-14 Serum or plasma urea nitrogen measurement (mass/volume) 12 mg/dL 7-18 Serum or plasma creatinine measurement (mass/volume) 0.88 mg/dL 0.60-1.30 Serum or plasma urea nitrogen/creatinine mass ratio 14 NRG Serum or plasma creatinine measurement with calculation of estimated glomerular filtration rate > NRG Serum or plasma glucose measurement (mass/volume) 82 mg/dL 70-105 Serum or plasma calcium measurement (mass/volume) 9.9 mg/dL 8.5-10.1 Serum or plasma total bilirubin measurement (mass/volume) 0.4 mg/dL 0.1-1.0 Serum or plasma alkaline phosphatase measurement (enzymatic activity/volume) 92 U/L 40-136 Serum or plasma aspartate aminotransferase measurement (enzymatic activity/volume) 24 U/L 5-34 Serum or plasma alanine aminotransferase measurement (enzymatic activity/volume) 29 U/L 0-55 Serum or plasma protein measurement (mass/volume) 6.6 g/dL 6.4-8.2 Serum or plasma albumin measurement (mass/volume) 4.2 g/dL 3.2-4.5 CALCIUM CORRECTED 9.7 mg/dL 8.5-10.1 Lipid 1996 panel - 12/10/18 07:10 Serum or plasma triglyceride measurement (mass/volume) 71 mg/dL <150 Serum or plasma cholesterol measurement (mass/volume) 177 mg/dL < 200 Serum or plasma cholesterol in HDL measurement (mass/volume) 67 mg/dL 40-60 Cholesterol in LDL [mass/volume] in serum or plasma by direct assay 105 mg/dL 1-129 Serum or plasma cholesterol in VLDL measurement (mass/volume) 14 mg/dL 5-40 Encounters ACCT No. Visit Date/Time Discharge Status Pt. Type Provider Facility Loc./Unit Complaint [id number] 04/03/2014 09:50:00 04/03/2014 23:59:59 FABIO VOSS PHD, KINJAL Muniz [id number] 01/27/2018 16:08:00 01/27/2018 23:59:00 DIS Outpatient SELF, PHY [id number] 01/21/2017 15:24:00 01/21/2017 23:59:00 DIS Outpatient SELF, BELAY [id number] 10/25/2018 14:24:00 10/25/2018 23:59:59 CLS Preadmit NIKKI TERRY [facility] CARD BICUSPID AORTIC VALVE [id number] 06/17/2018 09:55:00 06/17/2018 18:55:00 DIS Outpatient CAPRICE MENDOZA MD [facility] SDC MICROCALCIFICATIONS LEFT BREAST [id number] 06/16/2018 05:40:00 06/16/2018 14:35:00 DIS Outpatient CAPRICE MENDOZA MD [facility] PREOP MICROCALCIFICATIONS LEFT BREAST [id number] 06/15/2018 10:12:00 06/15/2018 23:59:59 CLS Preadmit ROQUE ROLAND APRN [facility] RAD MICROCALCIFCATIONS LEFT BREAST [id number] 06/14/2018 12:05:00 06/14/2018 23:59:59 CLS Outpatient CAPRICE MENDOZA MD [facility] RAD LT BREAST MICROCALCIFICATION [id number] 05/28/2018 10:18:00 05/28/2018 23:59:59 CLS Outpatient ANNA HERZOG MD [facility] RAD ABN DX MAMMO [id number] 05/21/2018 14:16:00 05/21/2018 23:59:59 CLS Outpatient ANNA HERZOG MD [facility] RAD ABN MAMMO [id number] 05/14/2018 15:42:00 05/14/2018 23:59:59 CLS Outpatient ANNA HERZOG MD [facility] RAD SCREENING [id number] 04/15/2017 13:00:00 04/15/2017 23:59:59 CLS Preadmit NIKKI TERRY [facility] CARD CAD [id number] 04/15/2017 09:36:00 04/15/2017 23:59:59 CLS Outpatient NIKKI TERRY [facility] CARD CAD [id number] 03/31/2017 09:03:00 03/31/2017 23:59:59 CLS Preadmit NIKKI TERRY [facility] [place] RAD CAD [id number] 03/18/2017 08:04:00 03/18/2017 23:59:59 CLS Outpatient ANNA HERZOG MD [facility] [place] RAD ABN MAMMO [id number] 03/02/2017 15:09:00 03/02/2017 23:59:59 CLS Outpatient ANNA HERZOG MD [facility] [place] RAD SCREENING [id number] 12/14/2015 13:06:00 12/14/2015 23:59:59 CLS Outpatient ANNA HERZOG MD [facility] [place] RAD SCREENING [id number] 03/21/2015 07:55:00 03/21/2015 23:59:59 CLS Outpatient NIKKI TERRY [facility] [place] CARD HTN,CAD [id number] 03/16/2015 10:03:00 03/16/2015 23:59:59 CLS Outpatient NIKKI TERRY [facility] [place] CARD HTN,CAD,HLP [id number] 03/14/2014 15:40:00 03/14/2014 23:59:59 CLS Outpatient ANNA HERZOG MD [facility] [place] RAD SCREENING [id number] 10/03/2013 07:21:00 10/03/2013 23:59:59 CLS Outpatient LUL OROZCO MD [facility] [place] CARD CAD,HTN,HLP [id number] 06/06/2013 13:45:00 06/06/2013 23:59:59 CLS Outpatient LUL OROZCO MD [facility] [place] CARD CAD,HTN,HLP [id number] 03/24/2013 09:28:00 03/24/2013 23:59:59 CLS Outpatient MINO SANTIAGO, ANNA Evans [facility] [place] RAD SCREENING [id number] 12/10/2018 07:18:00 Document Registration [id number] 12/08/2018 08:37:00 ACT Outpatient NIKKI TERRY [facility] [place] CARD BICUSPID AORTIC VALVE [id number] 03/23/2012 08:42:00 Document Registration [id number] 11/17/2011 07:52:00 Document Registration [id number] 04/09/2011 07:17:00 Document Registration [id number] 04/01/2011 10:00:00 Document Registration [id number] 11/25/2010 09:25:00 Document Registration [id number] 05/10/2010 10:01:00 Document Registration [id number] 04/25/2010 08:09:00 Document Registration [id number] 04/19/2010 07:56:00 Document Registration [id number] 11/23/2009 10:26:00 Document Registration [id number] 10/10/2009 05:34:00 Document Registration [id number] 10/09/2009 08:59:00 Document Registration [id number] 11/21/2015 11:09:17 11/21/2015 23:59:59 CLS Outpatient
== END 2018-12-10 13:44 | disposition home or self-care (01) ==
LOC: CATH 06:47 → ICU 08:42 → CATH 13:44
PROVIDERS: ATTEND Internal Medicine Cardiovascular Disease
DX: I25.10 Atherosclerotic heart disease of native coronary artery without angina pectoris (principal); I10 Essential (primary) hypertension; E78.5 Hyperlipidemia, unspecified; R94.39 Abnormal result of other cardiovascular function study; I25.2 Old myocardial infarction; Q23.1 Congenital insufficiency of aortic valve; Z79.82 Long term (current) use of aspirin; Z79.52 Long term (current) use of systemic steroids; Z82.49 Family history of ischemic heart disease and other diseases of the circulatory system; Z90.710 Acquired absence of both cervix and uterus; Z83.3 Family history of diabetes mellitus; Z80.9 Family history of malignant neoplasm, unspecified; Z83.511 Family history of glaucoma; Z87.891 Personal history of nicotine dependence
CPT/HCPCS: 36415; 71045; 80053; 80061; 81000; 85027; 85610; 85730; 87081; 93458

== ENCOUNTER → 2020-10-03 | Outpatient (CLI) | payer BC ==
[~2020-10-03] MED LIST changes: +DIPH25TA65 PO
== END ==
LOC: CARD 09:33
PROVIDERS: ATTEND Internal Medicine Cardiovascular Disease
DX: I25.10 Atherosclerotic heart disease of native coronary artery without angina pectoris (principal); I34.0 Nonrheumatic mitral (valve) insufficiency; I10 Essential (primary) hypertension
CPT/HCPCS: 93306

== ENCOUNTER → 2020-11-15 | Outpatient (CLI) | payer BC ==
--- NOTE | 2020-11-15 13:42 | Diagnostic Imaging Report ---
Indication: Routine screening. Comparison is made with prior mammogram 05/14/2018 and 03/02/2017. 2-D and 3-D bilateral screening mammography was performed with CAD. Both breasts are heterogeneously dense, limiting the sensitivity of mammography. There are benign calcifications in both breasts. No mass or malignant appearing microcalcifications are seen. Axillae are unremarkable. IMPRESSION: BI-RADS Category 2 No mammographic features suspicious for malignancy are identified. ACR BI-RADS Category 2: Benign findings. Result letter will be mailed to the patient. Note: At least 10% of breast cancer is not imaged by mammography. Dictated by: Dictated on workstation # [id number]
== END ==
LOC: RAD 11:15
PROVIDERS: ATTEND Obstetrics & Gynecology
DX: Z12.31 Encounter for screening mammogram for malignant neoplasm of breast (principal)
CPT/HCPCS: 77063; 77067

== ENCOUNTER → 2022-03-03 | Outpatient (CLI) | payer BC ==
--- NOTE | 2022-03-04 16:03 | Diagnostic Imaging Report ---
INDICATION: Routine screening. COMPARISON: 11/15/2020 and 05/14/2018. TECHNIQUE: 2D and 3D bilateral screening mammography was performed with CAD. FINDINGS: Both breasts are heterogeneously dense, limiting the sensitivity of mammography. There are benign calcifications bilaterally. No mass or malignant-appearing microcalcifications are seen. The axillae are unremarkable. IMPRESSION: No mammographic features suspicious for malignancy are identified. ACR BI-RADS Category 2: Benign findings. Result letter will be mailed to the patient. Note: At least 10% of breast cancer is not imaged by mammography. Dictated by: Dictated on workstation # [id number]
== END ==
LOC: RAD 15:27
PROVIDERS: ATTEND Obstetrics & Gynecology
DX: Z12.31 Encounter for screening mammogram for malignant neoplasm of breast (principal)
CPT/HCPCS: 77063; 77067

== ENCOUNTER → 2023-03-06 | Outpatient (CLI) | payer BC ==
--- NOTE | 2023-03-06 12:50 | Diagnostic Imaging Report ---
INDICATION: Routine screening. Comparison is made with prior mammogram from 03/03/2022 and 11/15/2020. 2-D and 3-D bilateral screening mammography was performed with CAD. Both breasts are heterogeneously dense, limiting the sensitivity of mammography. The parenchymal pattern is stable. No mass or malignant-appearing microcalcifications are identified. There are benign calcifications bilaterally. Axillae are unremarkable. IMPRESSION: No mammographic features suspicious for malignancy are identified. ACR BI-RADS Category 2: Benign findings. Result letter will be mailed to the patient. Note: At least 10% of breast cancer is not imaged by mammography. BI-RADS Category 2 Dictated by: Dictated on workstation # [id number]
== END ==
LOC: RAD 08:18
PROVIDERS: ATTEND Obstetrics & Gynecology
DX: Z12.31 Encounter for screening mammogram for malignant neoplasm of breast (principal)
CPT/HCPCS: 77063; 77067

== ENCOUNTER 2023-04-03 07:04 | Outpatient (CLI) | payer BC ==
[~2023-04-03] VITALS: Ht 165.1 cm; Wt 85.5 kg
[2023-04-03] MEDS ORDERED: BUSP5TAB59 PO (14:46)
[2023-04-03] MEDS ORDERED: CALC600T91 PO (14:46)
[2023-04-03] MEDS ORDERED: MULT-593 PO (14:46)
== END 2023-04-03 14:51 | disposition home or self-care (01) ==
LOC: PREOP 07:04
PROVIDERS: ATTEND Surgery
DX: Z01.818 Encounter for other preprocedural examination (principal)